=== PATIENT | male | born 1975 | race Caucasian/White ===

== ENCOUNTER 2023-06-27 17:37 | Emergency (ER) | payer OTHER, SELFPAY ==
[2023-06-27 18:18] VITALS: BP 144/93; PULSE 111; RESP 16; TEMP 37; O2SAT 95; BMI 28.4
--- NOTE | 2023-06-27 18:18 | ED_ITS ---
HPI - Extremity Injury (Upper) General Chief Complaint: Extremity Injury, Upper Stated Complaint: right shoulder and arm pain Time Seen by Provider: 06/27/23 19:40 Source: patient, RN notes reviewed and old records reviewed Mode of arrival: ambulatory History of Present Illness HPI narrative: 48-year-old male with a past medical history of diabetes presenting to the ED complaining of acute on chronic right shoulder pain x 3 months. 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 Denies direct injury/trauma or fall. was seen at [facility] ED on Wednesday, had multiple x-rays return unremarkable, discharge with ibuprofen without any relief. States he is here today for pain control. Denies CP/SOB, numbness, tingling, weakness MD complaint: injury to: shoulder Related Data Previous Rx's Medication Instructions Recorded acetaminophen 500 mg tablet 500 mg PO Q6H PRN fever or pain 06/27/23 (Tylenol Extra Strength) #14 tabs cyclobenzaprine 5 mg tablet 5 mg PO Q8H PRN pain (scale score 06/27/23 7-10) 5 days #14 tabs lidocaine 5 % topical patch 1 patch topical DAILY PRN pain #30 06/27/23 (Lidoderm) ea Allergies Allergy/AdvReac Type Severity Reaction Status Date / Time amoxicillin Allergy Unknown Verified 06/27/23 18:18 Penicillins Allergy Unknown Verified 06/27/23 18:18 Review of Systems Review of Systems: Constitutional: No Fever, No Chills ENT/Mouth: No Ear Pain, No Nasal Congestion, No sore throat, No Rhinorrhea, No Swallowing Difficulty Cardiovascular: No Chest Pain, No SOB Respiratory: No Cough Gastrointestinal: No Nausea, No Vomiting, No Abdominal pain Genitourinary: No Urinary Incontinence/retention Musculoskeletal: + joint pain, No Myalgias, No Joint Swelling Skin: No Skin Lesions, No rash Neuro: No Weakness, No Numbness, No Paresthesias Yes all other systems are reviewed and are negative Constitutional: Constitutional: Reports as per [facility] Past Medical History Attestation statement: The following information was validated with the patient. Source: old records reviewed Social History Smoked in Last 30 Days: No Use of substances other than those prescribed or required for medical reasons: No Advance Directives: No Advance Directives Information Provided: No Physical Exam Vital Signs: Vital Signs: Last Vital Signs Temp 98.6 F 06/27/23 18:18 Pulse 111 H 06/27/23 18:18 Resp 16 06/27/23 18:18 BP 144/93 H 06/27/23 18:18 Pulse Ox 95 06/27/23 18:18 O2 Del Method Room Air 06/27/23 18:18 BMI result Body Mass Index 28.4 Const: General: cooperative, healthy appearing and no acute distress Orientation/consciousness: patient oriented x3 Limitations: no limitations HEENT: Head: Yes normal to inspection and Yes atraumatic Ears: hearing grossly normal bilaterally General nose exam: Normal external nose present Face and sinus: Yes normal facial exam Eyes: General: appearance normal, both eyes and all related structures EOM: EOMs intact bilaterally Neck: Neck: Yes normal visual inspection and Yes no meningeal signs Resp: Effort & Inspection: normal respiratory effort and no respiratory distress Cardio: Rate: regular rate Peripheral pulses: Peripheral pulses 2+ throughout Back/Spine/Pelvis: Other: No midline cervical/thoracic/lumbar spinous tenderness/step-off or deformity. + right trapezius muscle tenderness to palpation Skin: Rashes: no rashes Wounds: no wounds Neuro: General: patient oriented x3, tone normal and no meningeal signs Cranial nerves: Yes CN's II-XII intact bilaterally Gait exam (Neuro): Normal gait present Extrem: Other: Right shoulder without noted deformity. Diffusely tender to palpation. Limited ROM secondary to pain. Neurovascularly intact distally. General: Yes normal to inspection Course Course Course Narrative: RME: 48yo M w/PMHx DM, c/o right shoulder pain x3 mos, intermittent. Went to [facility] Wednesday, had XRs and was sent home with Ibuprofen w/o relief. admits works in construction. EKG, IM Toradol, Flexeril ordered Full HPI, ROS and PE to be performed by primary ED provider. Medications Administered Discontinued Medications Generic Name Dose Route Start Last Admin Trade Name Freq PRN Reason Stop Dose Admin Cyclobenzaprine HCl 10 mg 06/27/23 18:21 06/27/23 19:09 Cyclobenzaprine Hcl 10 Mg Tablet PO 06/27/23 18:22 10 mg ONCE ONE Administration Ketorolac Tromethamine 30 mg 06/27/23 18:21 06/27/23 19:09 Ketorolac Tromethamine 30 Mg/Ml Vial IM 06/27/23 18:22 30 mg ONCE ONE Administration Medical Decision Making Medical Decision Making [facility] Narrative: 48-year-old male with a past medical history of diabetes presenting to the ED complaining of acute on chronic right shoulder pain x 3 months. On exam tachycardic likely from pain, NAD, nontoxic appearing, physical exam as above. concern for MSK pain/strain and muscle spasming vs rotator cuff injury. Low suspicion for ACS, fracture, septic joint/arthritis No need for repeat imaging at this time as patient had x-rays this week Plan: Pain control, work connection and orthopedic follow-up Please refer to course for remaining clinical decision making, interpretation of labs/imaging results, and discussions with consultants and/or family members. Results discussed with patient including worrisome signs and symptoms and strict return precautions, and when to return to the emergency department. They verbalized understanding and feel safe for discharge at this time. Differential Diagnosis Differential Diagnoses: The differential diagnosis associated with the presentation includes As above Lab Data [facility] Lab Attestation statement: I reviewed the patient's lab results. Radiology Impression Discussion of test interpretation with radiology: I have reviewed the radiologist's reading. External Record Review External record reviewed: Inpatient record, Office record, Outpatient record, Prior outpatient labs, Prior outpatient radiology, Primary care record and Outside ED record Tests considered The following testing was considered but not selected: As above Prescription Management I considered prescription management with: Pain Medication Discharge Plan Discharge Clinical Impression: Acute shoulder pain, Trapezius muscle spasm Patient Disposition: Home, Self-Care Instructions: Muscle Spasm (ED), Shoulder Pain (ED) Additional Instructions: Your pain is likely musculoskeletal Flexeril is a muscle relaxer, take at night as it makes you drowsy, do not drive, drink alcohol, or operate machinery while taking it Continue taking previously prescribed ibuprofen Lidoderm patches are numbing patches, apply to painful area In addition take Tylenol at home If symptoms persist or worsen, pain becomes unbearable, you developed urinary retention or incontinence, or weakness return to the ED Prescriptions: New acetaminophen [Tylenol Extra Strength] 500 mg tablet 500 mg PO Q6H PRN (Reason: fever or pain) Qty: 14 0RF lidocaine [Lidoderm] 5 % adhesive patch,medicated 1 patch topical DAILY MDD remove after 12 hours PRN (Reason: pain) Qty: 30 0RF Rx Instructions: leave on most painful area for up to 12 hrs cyclobenzaprine 5 mg tablet 5 mg PO Q8H PRN (Reason: pain (scale score 7-10)) 5 Days Qty: 14 0RF Referrals: [facility] [Provider Group] Work Connection [Outside] Stand Alone Forms: Work/School Release Interventions: ED Discharge Assessment Last Done: 06/27/23 20:13 Discharge Date/Time: 06/27/23 20:14
--- NOTE | 2023-06-27 18:21 | ECG_ITS ---
Test Reason : SHOULDER GUADALUPE Blood Pressure : / mmHG Vent. Rate : 096 BPM Atrial Rate : 096 BPM P-R Int : 138 ms QRS Dur : 088 ms QT Int : 348 ms P-R-T Axes : 053 -05 041 degrees QTc Int : 439 ms Poor data quality, interpretation may be adversely affected Normal sinus rhythm Normal ECG No previous ECGs available missing v2-3 Referred By: Sandi Weston Electronically Signed By:TIN BAUTISTA MD
[2023-06-27] MEDS: Ketorolac Tromethamine 30 MG/ML VIAL IM (19:09)
[2023-06-27] MEDS: Cyclobenzaprine HCl 10 MG TABLET PO (19:09)
--- OUTSIDE RECORDS SUMMARY | 2023-06-27 19:53 | XMS_ITS | Continuity of Care Document ---
Author Name Unknown Organization [facility] (Formerly [facility])[3] Adult Medicine Address [address] [place] [address]- Care Team Providers Care Hand Silvering Supervisor Name Role Phone Gabino Marie DOpiter Primary Care Physician Encounter [facility] Date(s): 07/23/21 - 08/22/21 [facility]3] Adult Medicine [address], [place] [address] Allergies, Adverse Reactions, Alerts Substance Reaction Severity Status amoxicillin Active penicillin Active Immunizations Given and Recorded Vaccine Date Status Refusal Reason SARS-CoV-2 (COVID-19) mRNA BNT-162b2 vac 05/23/21 Given SARS-CoV-2 (COVID-19) mRNA BNT-162b2 vac 03/06/21 Given pneumococcal 23-valent vaccine 12/29/18 Given influenza virus vaccine, inactivated 05/28/16 Give n tetanus/diphtheria/pertussis, acel(Tdap) 1 05/31/09 Given influenza virus vaccine, live 2 05/31/09 Given 1Admin Note: Sanofi-Pasteur pt VIS 06/19/2008 2Admin Note: VIS 12/2008 Medications Alcohol Pads See Instructions, # 1 pack/packet, Refills 11, Tot. Refills 11, Maintenance, use to check bs tid dxe11.9, 07/21/21 15:04:00 EST, Supply, 178, cm, 06/23/21 8:47:00 EST, Height Start Date: 07/21/21 Status: Ordered Diflucan 150 mg oral tablet 1 tablet = 150 mg, By Mouth, Once, # 1 tablet, 0 Refills, Soft Stop, 03/06/21 15:59:00 EDT, Tablet,[facility] #[id number], Partial fill upon patient request if the prescription is for a schedule II opioid drug., 178, cm, 03/06/21 10:19:00 EDT, H... Start Date: 03/06/21 Status: Ordered FreeStyle 2 Marva Sensors FreeStyle 2 Marva Sensors, See Instructions, # 2 each, Refills 5, Tot. Refills 5, Maintenance, Scanreader over sensor 5 times a day to check blood sugars E11.9, 04/22/21 10:30:00 EDT, Supply, 178, cm, 03/06/21 10:19:00 EDT, Height Start Date: 04/22/21 Status: Ordered FREESTYLE LITE BLOOD GLUCSTR 50S FREESTYLE LITE BLOOD GLUCSTR 50S, See Instructions, # 150 Unknown, 0 Refills, Maintenance, USE TO TEST BLOOD GLUCOSE FOUR TIMES DAILY, 178, cm, 03/06/21 10:19:00 EDT, Height Start Date: 03/12/21 Status: Ordered gabapentin 300 mg oral capsule 300 mg, 1, capsule, By Mouth, 3 times a day, Start with 1 capsule at night for 3 nights, then increase to 1 capsule 2 times a day for 5 days, increase to 1 capsule am and 2 at bedtime, # 90 capsule, Refills 3, Tot. Refills 3, Maintenance, 08/14/21 14:... Start Date: 08/14/21 Status: Ordered HumaLOG KwikPen 100 units/mL injectable solution See Instructions, INJECT UNDER THE SKIN THREE TIMES DAILY BEFORE MEALS PER SLIDING SCALE up to 20 units a meal, # 30 mL, 5 Refills, 04/06/21 19:53:00 EDT, [facility] #[id number], 178, cm, 03/06/21 10:19:00 EDT, Height Start Date: 04/06/21 Status: Ordered Lantus Solostar Pen 100 units/mL subcutaneous solution See Instructions, Take 40 units once daily. E10.65, # 30 mL, 5 Refills, 04/06/21 19:52:00 EDT, [facility] #[id number], 178, cm, 03/06/21 10:19:00 EDT, Height Start Date: 04/06/21 Status: Ordered lidocaine 5% topical film See Instructions, APPLY 1 PATCH EXTERNALLY TO THE SKIN DAILY, # 30 patch, 2 Refills, Soft Stop, 08/14/21 14:36:00 EST, [facility] #[id number], APPLY 1 PATCH EXTERNALLY TO THE SKIN DAILY, 178, cm, 08/14/21 13:48:00 EST, Height Start Date: 08/14/21 Status: Ordered lisinopril 2.5 mg oral tablet See Instructions, TAKE 1 TABLET BY MOUTH DAILY, # 30 tablet, Refills 3, Tot. Refills 3, Soft Stop, 03/06/21 12:10:00 EDT, Instructions Replace Required Details, Route to Pharmacy Electronically, [facility] #[id number], 178, cm, 03/06/21 10:19:00... Start Date: 03/06/21 Status: Ordered metFORMIN 500 mg oral tablet 1 tablet = 500 mg, By Mouth, 2 times a day, # 60 tablet, 3 Refills, Maintenance, 03/06/21 12:10:00 EDT, Tablet, [facility] #[id number], 178, cm, 03/06/21 10:19:00 EDT, Height Start Date: 03/06/21 Status: Ordered methyl salicylate topical - lotion 1 application, Topically, 3 times a day, PRN as needed for pain, # 120 Gm, 0 Refills, Maintenance, 12/29/18 15:32:43 EDT, Lotion, 1 application Topically 3 times a day,PRN:as needed for pain Start Date: 12/29/18 Status: Ordered omeprazole 20 mg oral enteric coated capsule 1 capsule = 20 mg, By Mouth, 2 times a day, # 30 capsule, 0 Refills, Maintenance, 06/11/21 9:13:00 EST, EC Capsule, [facility] #[id number], Partial fill upon patient request if the prescription is for a schedule II opioid drug., 178, cm, 06/10/21... Start Date: 06/11/21 Status: Ordered Pen [employer], 31 G x 8 mm BD Ultra Fine III See Instructions, # 120 each, Refills 11, Tot. Refills 11, Maintenance, use to inject insulin up tofour times daily. dx e11.9, 07/21/21 15:03:00 EST, Supply, 178, cm, 06/23/21 8:47:00 EST, Height Start Date: 07/21/21 Status: Ordered Tylenol 8 Hour 650 mg oral tablet, extended release 1 tablet = 650 mg, By Mouth, Every 8 hours, PRN as needed for pain, # 50 tablet, 1 Refills, Maintenance, 06/23/21 10:03:00 EST, ER Tablet, [facility] #[id number], Partial fill upon patient request if the prescription is for a schedule II opioid d... Start Date: 06/23/21 Status: Ordered Vitamin D3 1000 intl units oral tablet 1 tablet = 25 mcg, By Mouth, Daily, # 30 tablet, 2 Refills, Maintenance, 06/13/21 9:41:00 EST, Tablet, [facility] #[id number], Partial fill upon patient request if the prescription is for a schedule II opioid drug., 178, cm, 06/10/21 11:08:00 EST... Start Date: 06/13/21 Status: Ordered Problem List Condition Effective Dates Status Health Status Inform ant Balanitis(Confirmed) Active Chronic low back pain(Confirmed) Active Compression fracture of lumb ar vertebra(Confirmed) Active Thrombocytopenia(Confirmed) Active Vitamin D deficiency(Confirmed) Active Social History Social History Type Response Smoking Status Current every day margarito hoffman entered on: 07/29/17 Sex
--- OUTSIDE RECORDS SUMMARY | 2023-06-27 19:53 | XMS_ITS | Continuity of Care Document ---
Author Name Unknown Organization [facility] Address [address] [place] [address]- Care Team Providers Care Nurse Anesthetist Name Role Phone Sydney Zheng DO Primary Care Physici an Encounter [facility] Date(s): 12/05/19 - 01/04/20 [facility] [address] [place] [address] Attending Physician: Corinna Estrella Admitting Physician: Corinna Estrella Referring Physician: Corinna Estrella Referring Physician: Shoshana Nelson NP Allergies, Adverse Reactions, Alerts Substance Reaction Severity Status amoxicillin Active penicillin Active Immunizations Given and Recorded Vaccine Date Status Refusal Reason pneumococcal 23-valent vaccine 12/29/18 Given influenza virus vaccine, inactivated 05/28/16 Give n tetanus/diphtheria/pertussis, acel(Tdap) 1 05/31/09 Given influenza virus vaccine, live 2 05/31/09 Given 1Admin Note: Sanofi-Pasteur pt VIS 06/19/2008 2Admin Note: VIS 12/2008 Medications Admelog SoloStar 100 units/mL injectable solution See Instructions, Max daily dose 42 units. E10.65., # 30 mL, 5 Refills, Maintenance, 10/25/19 12:37:00 EDT, [facility] #[id number], 178, cm, 10/16/19 14:26:00 EDT, Height Start Date: 10/25/19 Status: Ordered Alcohol Wipes See Instructions, # 100 each, Refills 11, Tot. Refills 11, Maintenance, Check glucose three times aday, 08/30/19 9:12:00 EST, Compound, 178, cm, 08/14/19 14:54:00 EST, Height Start Date: 08/30/19 Status: Ordered Freestyle Marva 14-day [place] Freestyle Marva 14-day [place], See Instructions, # 1 each, Refills 0, Tot. Refills 0, Maintenance, Use to scan for blood sugar at least 4 times daily. E10.65, 08/14/19 15:18:00 EST, Compound, 178, cm, 08/14/19 14:54:00 EST, Height Start Date: 08/14/19 Status: Ordered Freestyle Marva 14-day Sensors Freestyle Marva 14-day Sensors, See Instructions, # 2 each, Refills 11, Tot. Refills 11, Maintenance, Use to scan for blood sugar at least 4 times daily. E10.65, 08/14/19 15:18:00 EST, Compound, 178,cm, 08/14/19 14:54:00 EST, Height Start Date: 08/14/19 Status: Ordered Freestyle Lite Lancets See Instructions, # 200 each, Refills 11, Tot. Refills 11, Maintenance, use as directed to check blood sugars four times a day for Type 2 Diabetes Mellitus E11.9, 08/04/18 18:20:35 EST, Compound Start Date: 08/04/18 Stop Date: 07/30/19 Status: Ordered Freestyle Lite Monitor See Instructions, # 1 each, Refills 5, Tot. Refills 5, Maintenance, use as directed for Type 1 Diabetes Mellitus, 02/15/18 13:43:56 EDT, Compound Start Date: 02/15/18 Stop Date: 08/14/18 Status: Ordered Freestyle Lite Test Strips See Instructions, # 40 each, Refills 11, Tot. Refills 11, Maintenance, test blood glucose daily fordx Diabetes E11.9, 08/18/19 11:44:00 EST, Compound, 178, cm, 08/14/19 14:54:00 EST, Height Start Date: 08/18/19 Status: Ordered gabapentin 600 mg oral tablet 1 tablet = 600 mg, By Mouth, Daily at bedtime, # 30 tablet, 5 Refills, Maintenance, 04/28/18 17:35:35 EDT Start Date: 04/28/18 Status: Ordered Glucagon Emergency Kit See Instructions, # 1 application, Maintenance, Use if patient is unconscious, 12/29/18 15:24:16 EDT, Compound Start Date: 12/29/18 Status: Ordered Lantus Solostar Pen 100 units/mL subcutaneous solution See Instructions, Take 30 units once daily. E10.65, # 30 mL, 5 Refills, 10/25/19 12:35:00 EDT, [facility] #[id number], 178, cm, 10/16/19 14:26:00 EDT, Height Start Date: 10/25/19 Status: Ordered lidocaine 5% topical film See Instructions, # 30 patch, Refills 2 Tot. Refills 2, APPLY 1 PATCH EXTERNALLY TO THE SKIN DAILY,[facility] #[id number] Start Date: 05/04/19 Status: Ordered lisinopril 2.5 mg oral tablet See Instructions, TAKE 1 TABLET BY MOUTH DAILY, # 30 tablet, Refills 3, Tot. Refills 3, Soft Stop, 09/05/19 17:10:00 EST, Instructions Replace Required Details, Route to Pharmacy Electronically, [facility] #[id number], 178, cm, 08/14/19 14:54:00... Start Date: 09/05/19 Status: Ordered metFORMIN 500 mg oral tablet 1 tablet = 500 mg, By Mouth, 2 times a day, # 60 tablet, 3 Refills, Maintenance, 09/05/19 17:10:00 EST, Tablet, [facility] #[id number], 178, cm, 08/14/19 14:54:00 EST, Height Start Date: 09/05/19 Status: Ordered methyl salicylate topical - lotion 1 application, Topically, 3 times a day, PRN as needed for pain, # 120 Gm, 0 Refills, Maintenance, 12/29/18 15:32:43 EDT, Lotion, 1 application Topically 3 times a day,PRN:as needed for pain Start Date: 12/29/18 Status: Ordered Pen [place], 31 G x 5 mm BD Ultra Fine III See Instructions, # 100 each, Refills 5, Tot. Refills 5, Maintenance, use to inject insulin up to four times daily dx e11.9, 09/05/19 17:09:00 EST, Compound, 178, cm, 08/14/19 14:54:00 EST, Height Start Date: 09/05/19 Stop Date: 03/03/20 Status: Ordered Vitamin D 66888 iu oral capsule 50,000 International_Units, 1, capsule, By Mouth, Every week, # 4 capsule, Refills 0, Tot. Refills 0, Maintenance, 10/20/18 15:52:35 EDT, Route to Pharmacy Electronically, [id number][id number] Start Date: 10/20/18 Status: Ordered Problem List Condition Effective Dates Status Health Status Inform ant Balanitis(Confirmed) Active Chronic low back pain(Confirmed) Active Compression fracture of lumb ar vertebra(Confirmed) Active Thrombocytopenia(Confirmed) Active Vitamin D deficiency(Confirmed) Active Social History Social History Type Response Smoking Status Current every day margarito hoffman entered on: 07/29/17 Sex
--- OUTSIDE RECORDS SUMMARY | 2023-06-27 19:53 | XMS_ITS | Continuity of Care Document ---
Author Name Unknown Organization [facility] Address [address] [place] [address]- Care Team Providers Care Director Of Institutional Research Name Role Phone Maurice MAST, Viktor Primary Care Physician [phone] [place] [facility] [place] 01/07/23 - 03/05/23 [facility] [address], [place] [address] Attending Physician: Not on Staff, Attending MD Allergies, Adverse Reactions, Alerts Substance Reaction Severity Status amoxicillin Active penicillin Active Duloxetine 1 Active 1dizzy and nauseous Immunizations Given and Recorded Vaccine Date Status [...] Maintenance, use to check bs tid dxe11.9, 08/20/22 17:30:00 EST, Supply, 179, cm, 12/27/21 10:24:00 EDT, Height, 79, kg, 12/27/21 10:24:00 EDT, Dry Weight Start Date: 08/20/22 Status: Ordered atorvastatin 40 mg oral tablet 1 tablet = 40 mg, By Mouth, Daily, # 30 tablet, 5 Refills, Maintenance, 01/07/23 17:16:00 EDT, Tablet, [facility] #[id number], Partial fill upon patient request if the prescription is for a schedule II opioid drug., 179, cm, 10/22/22 13:00:00 EDT... Start Date: 01/07/23 Status: Ordered BD Single Use Swab 70% topical pad See Instructions, USE PRIOR TO INJECTING INSULIN AND TESTING BLOOD GLUCOSE, # 200 Unknown, 3 Refills, [facility], 28, USE PRIOR TO INJECTING INSULIN AND TESTING BLOOD GLUCOSE, 179, cm, 12/27/21 10:24:00 EDT, Height, 79, kg, 12/27/21 10:24:00... Start Date: 02/17/22 Status: Ordered FREESTYLE NHI SENSOR 14d FREESTYLE NHI SENSOR 14d, See Instructions, # 2 each, Refills 11, Tot. Refills 11, Maintenance, USE TO CHECK BLOOD SUGAR 5X TIMES DAILY DIRECTED. CHANGE EVERY 14 DAYS, 12/21/22 12:06:00 EDT, Supply, 179, cm, 10/22/22 13:00:00 EDT, Height, 79, kg... Start Date: 12/21/22 Status: Ordered FREESTYLE LITE BLOOD GLUCSTR 50S FREESTYLE LITE BLOOD GLUCSTR 50S, See Instructions, # 150 Unknown, 0 Refills, Maintenance, USE TO TEST BLOOD GLUCOSE FOUR TIMES DAILY, 178, cm, 03/06/21 10:19:00 EDT, Height Start Date: 03/12/21 Status: Ordered gabapentin 800 mg oral tablet 1 tablet = 800 mg, By Mouth, 3 times a day, # 90 tablet, 1 Refills, Maintenance, 11/12/22 13:47:00 EDT, Tablet, [facility], Partial fill upon patient request if the prescription is for a schedule II opioid drug., 179, cm, 10/22/22 13:0... Start Date: 11/12/22 Status: Ordered Insulin Lispro KwikPen 100 units/mL injectable solution See Instructions, Inject sq 10-20 units subcutaneously 3x a day before meals per sliding scale . E10.9, # 30 mL, 2 Refills, Maintenance, 11/12/22 13:48:00 EDT, [facility], Partial fill upon patient request if the prescription is for a... Start Date: 11/12/22 Status: Ordered Lantus Solostar Pen 100 units/mL subcutaneous solution See Instructions, Take 40 units once daily. E10.65, # 30 mL, 5 Refills, 04/29/22 13:52:00 EDT, [facility]., 179, cm, 12/27/21 10:24:00 EDT, Height, 79, kg, 12/27/21 10:24:00 EDT, Dry Weight Start Date: 04/29/22 Status: Ordered lidocaine 5% topical film 1 patch, Topically, Daily, # 30 patch, 11 Refills, Soft Stop, 09/17/21 13:44:00 EST, [facility] #[id number], 1 patch Topically Daily,x30 days, 178, cm, 09/17/21 13:34:00 EST, Height Start Date: 09/17/21 Stop Date: 09/12/22 Status: Ordered metFORMIN 500 mg oral tablet, extended release 1 tablet = 500 mg, By Mouth, Daily, # 30 tablet, 0 Refills, Maintenance, 11/12/22 13:48:00 EDT, ER Tablet, [facility], Partial fill upon patient request if the prescription is for a schedule II opioid drug., 179, cm, 10/22/22 13:00:00... Start Date: 11/12/22 Status: Ordered Pen [place], 31 G x 8 mm BD Ultra Fine III See Instructions, # 120 each, Refills 11, Tot. Refills 11, Maintenance, use to inject insulin up tofour times daily. dx e11.9, 08/20/22 17:30:00 EST, Supply, 179, cm, 12/27/21 10:24:00 EDT, Height, 79, kg, 12/27/21 10:24:00 EDT, Dry Weight Start Date: 08/20/22 Status: Ordered Problem List Condition Confirmation Course Effective Dates Status H ealth Status Informant Balanitis Confirmed Active Chronic low back pain Confirmed Active Compression fracture of lumbar vertebra Confirmed Active Thrombocytopenia Confirmed Active Vitamin D deficiency Confirmed Active Social History Social History Type Response Smoking Status Current every day margarito hoffman entered on: 07/29/17 Sex Patient Care team information Care Team Personnel Name: Mauriec MAST, Viktor Position: [facility] Resident Member Role: PCP Address: Address: [address] [place] [id number]- Care Team Related Persons Name: CLARITA BRAND Address: [address] [place] [address] Name: LISSY OG Address: [address] [place] [address]
--- OUTSIDE RECORDS SUMMARY | 2023-06-27 19:53 | XMS_ITS | Continuity of Care Document ---
Author Name Unknown Organization [facility] Address [address] [place] [address]- Care Team Providers Care Coiler Name Role Phone Cl Marie DO Primary Care Physician [phone] Encounter [facility] [place] Date(s): 12/18/21 - 01/17/22 [facility] [address] [place] [id number] Attending Physician: AdmCorinna restrepo Admitting Physician: Admtr, Corinna Referring Physician: Admtr, Ar8 Allergies, Adverse Reactions, Alerts Substance Reaction Severity [...] EST, Height Start Date: 07/21/21 Status: Ordered duloxetine 30 mg oral enteric coated capsule 1 capsule = 30 mg, By Mouth, Daily, do not crush or chew, # 90 capsule, 11 Refills, Maintenance, 09/17/21 13:48:00 EST, CR Capsule, [facility] #[id number], Partial fill upon patient request if the prescription is for a schedule II opioid drug., 1... Start Date: 09/17/21 Stop Date: 09/01/24 Status: Ordered FreeStyle 2 Marva Sensors FreeStyle 2 Marva Sensors, See Instructions, # 1 each, Refills 11, Tot. Refills 11, Maintenance, Scan reader over sensor 5 times a day to check blood sugars E11.9, 12/18/21 16:18:00 EDT, Supply, 178,cm, 12/18/21 15:18:00 EDT, Height Start Date: 12/18/21 Status: Ordered FREESTYLE LITE BLOOD GLUCSTR 50S FREESTYLE LITE BLOOD GLUCSTR 50S, See Instructions, # 150 Unknown, 0 Refills, Maintenance, USE TO TEST BLOOD GLUCOSE FOUR TIMES DAILY, 178, cm, 03/06/21 10:19:00 EDT, Height Start Date: 03/12/21 Status: Ordered Freestyle Lite Lancets See Instructions, # 200 each, Refills 5, Tot. Refills 5, Maintenance, use as directed for Type 2 Diabetes Mellitus, 10/14/21 15:04:00 EDT, Supply, 178, cm, 09/17/21 13:34:00 EST, Height Start Date: 10/14/21 Stop Date: 04/12/22 Status: Ordered Freestyle Lite Test Strips See Instructions, # 200 each, Tot. Refills 5, Maintenance, use as directed for Type 2 Diabetes Mellitus, 10/14/21 15:03:00 EDT, Supply, 178, cm, 09/17/21 13:34:00 EST, Height Start Date: 10/14/21 Stop Date: 11/13/21 Status: Ordered gabapentin 300 mg oral capsule 300 mg, 1, capsule, By Mouth, 3 times a day, # 270 capsule, Refills 11, Tot. Refills 11, Maintenance, 09/17/21 13:40:00 EST, Route to Pharmacy Electronically, [facility] #[id number], Partial fill upon patient request if the prescription is for a... Start Date: 09/17/21 Stop Date: 09/01/24 Status: Ordered gabapentin 400 mg oral capsule 400 mg, 1, capsule, By Mouth, 4 times a day, # 360 capsule, Refills 3, Tot. Refills 3, Maintenance,12/18/21 16:21:00 EDT, Route to Pharmacy Electronically, [facility], Partial fill upon patient request if the prescription is for a kasandra... Start Date: 12/18/21 Status: Ordered Insulin Lispro KwikPen 100 units/mL injectable solution See Instructions, Inject sq 10-20 units subcutaneously 3x a day before meals per sliding scale . E10.9, # 30 mL, 11 Refills, Maintenance, 10/16/21 13:21:00 EDT, [facility], Partial fill upon patient request if the prescription is for a... Start Date: 10/16/21 Status: Ordered Lantus Solostar Pen 100 units/mL subcutaneous solution See Instructions, Take 40 units once daily. E10.65, # 30 mL, 5 Refills, 04/06/21 19:52:00 EDT, [facility] #[id number], 178, cm, 03/06/21 10:19:00 EDT, Height Start Date: 04/06/21 Status: Ordered lidocaine 5% topical film 1 patch, Topically, Daily, # 30 patch, 11 Refills, Soft Stop, 09/17/21 13:44:00 EST, [facility] #[id number], 1 patch Topically Daily,x30 days, 178, cm, 09/17/21 13:34:00 EST, Height Start Date: 09/17/21 Stop Date: 09/12/22 Status: Ordered Pen [place], 31 G x 8 mm BD Ultra Fine III See Instructions, # 120 each, Refills 11, Tot. Refills 11, Maintenance, use to inject insulin up tofour times daily. dx e11.9, 07/21/21 15:03:00 EST, Supply, 178, cm, 06/23/21 8:47:00 EST, Height Start Date: 07/21/21 Status: Ordered Problem List Condition Effective Dates Status Health Status Inform ant Balanitis(Confirmed) Active Chronic low back pain(Confirmed) Active Compression fracture of lumb ar vertebra(Confirmed) Active Thrombocytopenia(Confirmed) Active Vitamin D deficiency(Confirmed) Active Social History Social History Type Response Smoking Status Current every day margarito hoffman entered on: 07/29/17 Sex
--- OUTSIDE RECORDS SUMMARY | 2023-06-27 19:53 | XMS_ITS | Continuity of Care Document ---
Author Name Unknown Organization [facility] Address [address] [place] [address]- Care Team Providers Care Senior Portfolio Manager Name Role Phone Cl Marie DO Primary Care Physician [place] [facility] [place]/[address] [address] Attending Physician: Bassam Flaherty MD Admitting Physician: Bassam Flaherty MD Referring Physician: Cl Marie DO Allergies, Adverse Reactions, Alerts Substance Reaction Severity [...] VIS 06/19/2008 2Admin Note: VIS 12/2008 Medications Diflucan 150 mg oral tablet 1 tablet = 150 mg, By Mouth, Once, # 1 tablet, 0 Refills, Soft Stop, 03/06/21 15:59:00 EDT, Tablet,[facility] #[id number], Partial fill upon patient request if the [...] EDT, Height Start Date: 03/12/21 Status: Ordered HumaLOG KwikPen 100 units/mL injectable solution See Instructions, INJECT UNDER THE SKIN THREE TIMES DAILY BEFORE MEALS PER SLIDING SCALE up to 20 units a meal, # 30 mL, 5 Refills, 04/06/21 19:53:00 EDT, [facility] #[id number], 178, cm, 03/06/21 10:19:00 EDT, Height Start Date: 04/06/21 Status: Ordered Lantus Solostar Pen 100 units/mL subcutaneous solution See Instructions, Take 40 units once daily. E10.65, # 30 mL, 5 Refills, 04/06/21 19:52:00 EDT, [facility] #[id number], 178, cm, 03/06/21 10:19:00 EDT, Height Start Date: 04/06/21 Status: Ordered lidocaine 5% topical film See Instructions, # 30 patch, Refills 2 Tot. Refills 2, APPLY 1 PATCH EXTERNALLY TO THE SKIN DAILY,[facility] #[id number] Start Date: 05/04/19 Status: Ordered lisinopril 2.5 mg oral tablet See Instructions, TAKE 1 TABLET BY MOUTH DAILY, # 30 tablet, Refills 3, Tot. Refills 3, Soft Stop, 03/06/21 12:10:00 EDT, Instructions Replace Required Details, Route to Pharmacy Electronically, [facility] #[id number], 178, cm, 03/06/21 10:19:00... Start Date: 03/06/21 Status: Ordered metFORMIN 500 mg oral tablet 1 tablet = 500 mg, By Mouth, 2 times a day, # 60 tablet, 3 Refills, Maintenance, 03/06/21 12:10:00 EDT, Tablet, [facility] #[id number], 178, cm, 03/06/21 10:19:00 EDT, Height Start [...] Refills, Maintenance, 06/11/21 9:13:00 EST, EC Capsule, [facility] #[id number], Partial fill upon patient request if the prescription is for a schedule II opioid drug., 178, cm, 06/10/21... Start Date: 06/11/21 Status: Ordered Tylenol 8 Hour 650 mg oral tablet, extended release 1 tablet = 650 mg, By Mouth, Every 8 hours, PRN as needed for pain, # 50 tablet, 1 Refills, Maintenance, 06/23/21 10:03:00 EST, ER Tablet, [facility] #[id number], Partial fill upon patient request if the prescription is for a schedule II opioid d... Start Date: 06/23/21 Status: Ordered Vitamin D3 1000 intl units oral tablet 1 tablet = 25 mcg, By Mouth, Daily, # 30 tablet, 2 Refills, Maintenance, 06/13/21 9:41:00 EST, Tablet, [facility] #[id number], Partial fill upon patient request if the [...] Type Response Smoking Status Current every day sm oker entered on: 07/29/17 Sex
--- OUTSIDE RECORDS SUMMARY | 2023-06-27 19:53 | XMS_ITS | Continuity of Care Document ---
Author Name Unknown Organization [facility] Address [address] [place] [address]- Care Team Providers Care Processing Inspector Name Role Phone TyAmandoSydney medina DO Jeffrey Primary Care Physici an Encounter [facility] Date(s): 08/09/19 - 08/19/19 [facility] [address] [place] [address]- [facility] Attending Physician: Admlauro, Corinna Admitting Physician: Admtr, Corinna Referring Physician: Admtr, [...] SoloStar 100 units/mL injectable solution See Instructions, Sliding scale, with meals 100-150 - 2U 151-200 - 4U 201-250 - 6U 251-300 - 8U 301-350 - 10U 351-400 - 12 U 400+ - call doctor, # 10 mL, 3 Refills, Maintenance, 12/29/18 15:31:17 EDT Start Date: 12/29/18 Status: Ordered Alcohol Wipes See Instructions, # 100 each, Refills 11, Tot. Refills 11, Maintenance, Check glucose three times aday, 08/04/18 18:20:34 EST, Compound Start Date: 08/04/18 Status: Ordered Freestyle Marva 14-day [place] Freestyle Marva 14-day [place], See Instructions, # 1 each, Refills 0, [...] Pen 100 units/mL subcutaneous solution See Instructions, INJECT 30 UNITS UNDER THE SKIN EVERY NIGHT AT BEDTIME, # 9 mL, 0 Refills, Maintenance, 178, cm, 04/27/19 11:01:00 EDT, Height Start Date: 07/07/19 Status: Ordered lidocaine 5% topical film See Instructions, # 30 patch, Refills 2 Tot. Refills 2, APPLY 1 PATCH EXTERNALLY TO THE SKIN DAILY,[facility] #[id number] Start Date: 05/04/19 Status: Ordered lisinopril 2.5 mg oral tablet See Instructions, # 30 tablet, Refills 3 Tot. Refills 3, TAKE 1 TABLET BY MOUTH DAILY, [facility] #[id number] Start Date: 05/04/19 Status: Ordered metFORMIN 500 mg oral tablet 1 tablet = 500 mg, By Mouth, 2 times a day, # 60 tablet, 3 Refills, Maintenance, 12/29/18 15:33:14 EDT, Tablet Start Date: 12/29/18 Status: Ordered methyl salicylate topical - lotion 1 application, Topically, 3 times a day, PRN as needed for pain, # 120 Gm, 0 Refills, Maintenance, 12/29/18 15:32:43 EDT, Lotion, 1 application Topically 3 times a day,PRN:as needed for pain Start Date: 12/29/18 Status: Ordered Pen [place], 31 G x 5 mm BD Ultra Fine III See Instructions, # 100 each, Refills 5, Tot. Refills 5, Maintenance, use as directed for Type 1 Diabetes Mellitus, 12/29/18 17:06:55 EDT, Compound Start Date: 12/29/18 Stop Date: 06/27/19 Status: Ordered Vitamin D 37761 iu oral capsule 50,000 International_Units, 1, capsule, By Mouth, Every week, # 4 capsule, Refills 0, Tot. Refills 0, Maintenance, 10/20/18 15:52:35 EDT, Route to Pharmacy Electronically, [id number], [id number] Start Date: 10/20/18 Status: Ordered Problem List Condition Effective Dates Status Health Status Inform ant Balanitis(Confirmed) Active Chronic low back pain(Confirmed) Active Compression fracture of lumb ar vertebra(Confirmed) Active Thrombocytopenia(Confirmed) Active Vitamin D deficiency(Confirmed) Active Social History Social History Type Response Smoking Status Current every day margarito hoffman entered on: 07/29/17 Sex
--- OUTSIDE RECORDS SUMMARY | 2023-06-27 19:53 | XMS_ITS | Continuity of Care Document ---
Author Name Unknown Organization [facility] Address [address] [place] [address]- Care Team Providers Care Show Card Writer Name Role Phone Keaganbryan Cl TOLEDO Primary Care Physician [place] [facility] [place]06[place] - 02/05/22 [facility] [address] [place], [place] [address] Allergies, Adverse Reactions, Alerts Substance Reaction Severity [...] Refills, Maintenance, 09/17/21 13:48:00 EST, CR Capsule, [facility] #[id number], Partial fill upon patient request if the [...] 09/17/21 13:40:00 EST, Route to Pharmacy Electronically, [facility] #[id number], Partial fill upon patient request if the prescription is for a... Start Date: 09/17/21 Stop Date: 09/01/24 Status: Ordered gabapentin 400 mg oral capsule 400 mg, 1, capsule, By Mouth, 4 times a day, # 360 capsule, Refills 3, Tot. Refills 3, Maintenance,12/18/21 16:21:00 EDT, Route to Pharmacy Electronically, [facility], Partial fill upon patient request if the prescription is for a kasandra... Start Date: 12/18/21 Status: Ordered Insulin Lispro KwikPen 100 units/mL injectable solution See Instructions, Inject sq 10-20 units subcutaneously 3x a day before meals per sliding scale . E10.9, # 30 mL, 11 Refills, Maintenance, 10/16/21 13:21:00 EDT, [facility], Partial fill upon patient request if the prescription is for a... Start Date: 10/16/21 Status: Ordered Lantus Solostar Pen 100 units/mL subcutaneous solution See Instructions, Take 40 units once daily. E10.65, # 30 mL, 5 Refills, 04/06/21 19:52:00 EDT, [facility] #[id number], 178, cm, 03/06/21 10:19:00 EDT, Height Start Date: 04/06/21 Status: Ordered lidocaine 5% topical film 1 patch, Topically, Daily, # 30 patch, 11 Refills, Soft Stop, 09/17/21 13:44:00 EST, [facility] #[id number], 1 patch Topically Daily,x30 days, 178, cm, 09/17/21 13:34:00 EST, Height Start Date: 09/17/21 Stop Date: 09/12/22 Status: Ordered Pen [place], 31 G x 8 mm BD Ultra [...]
--- OUTSIDE RECORDS SUMMARY | 2023-06-27 19:53 | XMS_ITS | Continuity of Care Document ---
Author Name Unknown Organization [facility] Address [address] [place] [address]- Care Team Providers Care Psychiatric Assistant Name Role Phone Cl Marie DO Primary Care Physician Encounter [facility] Date(s): 09/09/20 - 10/09/20 [facility] [address] [place], [place] [address] Attending Physician: Croinna Estrella Admitting Physician: AdmCorinna restrepo Referring Physician: Admtr, Ar8 Allergies, Adverse Reactions, [...] mL, 5 Refills, Maintenance, 10/25/19 12:37:00 EDT, [facility] #[id number], 178, cm, 10/16/19 14:26:00 EDT, Height Start Date: 10/25/19 Status: Ordered Alcohol Wipes See Instructions, # 100 each, Refills 11, Tot. Refills 11, Maintenance, Check glucose three times aday, 08/30/19 9:12:00 EST, Compound, 178, cm, 08/14/19 14:54:00 EST, Height Start Date: 08/30/19 Status: Ordered Freestyle Marva 14-day [place] Freestyle Marva 14-day [place], See Instructions, # 1 each, Refills 0, Tot. Refills 0, Maintenance, Use to scan for blood sugar at least 4 times daily. E10.65, 08/17/20 14:54:00 EST, Compound, 178, cm, 10/16/19 14:26:00 EDT, Height Start Date: 08/17/20 Status: Ordered Freestyle Marva 14-day Sensors Freestyle Marva 14-day Sensors, See Instructions, # 2 each, Refills 11, Tot. Refills 11, Maintenance, Use to scan for blood sugar at least 4 times daily. E10.65, 08/17/20 14:54:00 EST, Compound, 178,cm, 10/16/19 14:26:00 EDT, Height Start Date: 08/17/20 Status: Ordered Freestyle Lite Lancets See Instructions, [...] Strips See Instructions, # 40 each, Refills 5, Tot. Refills 5, Maintenance, test blood glucose daily for dx Diabetes E11.9, 02/28/20 20:33:00 EDT, Compound, 178, cm, 10/16/19 14:26:00 EDT, Height Start Date: 02/28/20 Status: Ordered gabapentin 600 mg oral tablet [...] 30 mL, 5 Refills, 10/25/19 12:35:00 EDT, [email or web address] #[id number], 178, cm, 10/16/19 14:26:00 EDT, Height Start Date: 10/25/19 Status: Ordered lidocaine 5% topical film See Instructions, # 30 patch, Refills 2 Tot. Refills 2, APPLY 1 PATCH EXTERNALLY TO THE SKIN DAILY,[facility] #[id number] Start Date: 05/04/19 Status: Ordered lisinopril 2.5 mg oral tablet See Instructions, TAKE 1 TABLET BY MOUTH DAILY, # 30 tablet, Refills 3, Tot. Refills 3, Soft Stop, 09/05/19 17:10:00 EST, Instructions Replace Required Details, Route to Pharmacy Electronically, [facility] #[id number], 178, cm, 08/14/19 14:54:00... Start Date: 09/05/19 Status: Ordered metFORMIN 500 mg oral tablet 1 tablet = 500 mg, By Mouth, 2 times a day, # 60 tablet, 3 Refills, Maintenance, 09/05/19 17:10:00 EST, Tablet, [email or web address] #[id number], 178, cm, 08/14/19 14:54:00 EST, Height Start Date: 09/05/19 Status: Ordered methyl salicylate topical - lotion 1 application, Topically, 3 times a day, PRN as needed for pain, # 120 Gm, 0 Refills, Maintenance, 12/29/18 15:32:43 EDT, Lotion, 1 application Topically 3 times a day,PRN:as needed for pain Start Date: 12/29/18 Status: Ordered Pen [place], 31 G x 5 mm BD Ultra Fine III See Instructions, # 100 each, Refills 5, Tot. Refills 5, Maintenance, use to inject insulin up to four times daily dx e11.9, 09/05/19 17:09:00 EST, Compound, 178, cm, 08/14/19 14:54:00 EST, Height Start Date: 09/05/19 Stop Date: 03/03/20 Status: Ordered Vitamin D 42634 iu oral capsule 50,000 International_Units, 1, capsule, By Mouth, Every week, # 4 capsule, Refills 2, Tot. Refills 2, Maintenance, 03/01/20 14:21:00 EDT, Route to Pharm[facility] Electronically, [id number], 178, cm, 10/16/19 14:26:00 EDT, Height Start Date: 03/01/20 Status: Ordered Problem List Condition Effective Dates Status Health Status Inform ant Balanitis(Confirmed) Active Chronic low back pain(Confirmed) Active Compression fracture of lumb ar vertebra(Confirmed) Active Thrombocytopenia(Confirmed) Active Vitamin D deficiency(Confirmed) Active Social History Social History Type Response Smoking Status Current every day margarito hoffman entered on: 07/29/17 Sex
--- OUTSIDE RECORDS SUMMARY | 2023-06-27 19:53 | XMS_ITS | Continuity of Care Document ---
Author Name Unknown Organization [facility] Address [address] [place] [address] [address], [address] [place] [address]- Care Team Providers Care Director Of Recreation Therapy Name Role Phone Maurice MAST, Viktor Primary Care Physician Encounter [facility] [place] Date(s): 02/11/23 - 02/18/23 [facility] [address] [place] [address] Drive, [address] [place], [place] [address] Attending Physician: Carmen Baptiste MD Allergies, Adverse Reactions, Alerts Substance Reaction [...] 5 Refills, Maintenance, 01/07/23 17:16:00 EDT, Tablet, [id number], Partial fill upon patient request if the prescription is for a schedule II opioid drug., 179, cm, 10/22/22 13:00:00 EDT... Start Date: 01/07/23 Status: Ordered BD Single Use Swab 70% topical pad See Instructions, USE PRIOR TO INJECTING INSULIN AND TESTING BLOOD GLUCOSE, # 200 Unknown, 3 Refills, [facility], 28, USE PRIOR TO INJECTING INSULIN AND [...] 1 Refills, Maintenance, 11/12/22 13:47:00 EDT, Tablet, [facility], Partial fill upon patient request if the prescription is for a schedule II opioid drug., 179, cm, 10/22/22 13:0... Start Date: 11/12/22 Status: Ordered Insulin Lispro KwikPen 100 units/mL injectable solution See Instructions, Inject sq 10-20 units subcutaneously 3x a day before meals per sliding scale . E10.9, # 30 mL, 2 Refills, Maintenance, 11/12/22 13:48:00 EDT, [facility] Partial fill upon patient request if the prescription is for a... Start Date: 11/12/22 Status: Ordered Lantus Solostar Pen 100 units/mL subcutaneous solution See Instructions, Take 40 units once daily. E10.65, # 30 mL, 5 Refills, 04/29/22 13:52:00 EDT, [facility]., 179, cm, 12/27/21 10:24:00 EDT, Height, 79, kg, 12/27/21 10:24:00 EDT, Dry Weight Start Date: 04/29/22 Status: Ordered lidocaine 5% topical film 1 patch, Topically, Daily, # 30 patch, 11 Refills, Soft Stop, 09/17/21 13:44:00 EST, [id number], 1 patch Topically Daily,x30 days, 178, cm, 09/17/21 13:34:00 EST, Height Start Date: 09/17/21 Stop Date: 09/12/22 Status: Ordered metFORMIN 500 mg oral tablet, extended release 1 tablet = 500 mg, By Mouth, Daily, # 30 tablet, 0 Refills, Maintenance, 11/12/22 13:48:00 EDT, ER Tablet, [facility]., Partial fill upon patient request if the prescription is for a schedule II opioid drug., 179, cm, 10/22/22 13:00:00... Start Date: 11/12/22 Status: Ordered Pen [place], 31 G x 8 mm BD Ultra [...] Care team information Care Team Personnel Name: Viktor Richards MD Position: S Resident Member Role: PCP Address: Address: [address] [place] [address]- Care Team Related Persons Name: CLARITA BRAND Address: home [address] [place] [address] Name: LISSY OG Address: home [address] [place] [address]
--- OUTSIDE RECORDS SUMMARY | 2023-06-27 19:53 | XMS_ITS | Continuity of Care Document ---
Author Name Unknown Organization [facility] Address [address] [place] [address]- Care Team Providers Care Packager And Strapper Name Role Phone Maurice MAST, Viktor Primary Care Physician [place] [facility] [place] - 05/28/23 [facility] [address] [place], [place] [address] Attending Physician: Corinna Estrella Admitting Physician: Corinna Estrella Referring Physician: Corinna Estrella Referring Physician: Leslie KAYE, Shoshana Wolfe Allergies, Adverse Reactions, Alerts Substance Reaction Severity [...] Daily, # 30 tablet, 5 Refills, Maintenance, 04/16/23 13:51:00 EDT, Tablet, [facility] fill upon patient request if the prescription is for a schedule II opioid drug., 179, cm, 10/22/22 13:00:00 EDT,... Start Date: 04/16/23 Status: Ordered BD Single Use Swab 70% topical pad See Instructions, USE PRIOR TO INJECTING INSULIN AND TESTING BLOOD GLUCOSE, # 200 Unknown, 3 [facility]ills, [facility], 28, USE PRIOR TO INJECTING INSULIN AND TESTING BLOOD GLUCOSE, 179, cm, 12/27/21 10:24:00 EDT, Height, 79, kg, 12/27/21 10:24:00... Start Date: 02/17/22 Status: Ordered duloxetine 30 mg oral enteric coated capsule 1 capsule, By Mouth, Daily, DO NOT CHEW OR CRUSH., # 90 capsule, 0 Refills, Maintenance, 03/24/23 15:47:00 EDT, [facility], 179, cm, 10/22/22 13:00:00 EDT, Height, 79, kg, 12/27/21 10:24:00EDT, Dry Weight Start Date: 03/24/23 Status: Ordered FREESTYLE NHI SENSOR 14d FREESTYLE [...] Ordered Freestyle Lite Lancets See Instructions, # 100 each, Refills 11, Tot. Refills 11, Maintenance, use to check bs tid dx e11.9, 03/16/23 9:58:00 EDT, Supply, 179, cm, 10/22/22 13:00:00 EDT, Height, 79, kg, 12/27/21 10:24:00 EDT, Dry Weight Start Date: 03/16/23 Status: Ordered Freestyle Lite Monitor See Instructions, # 1 each, Maintenance, use to check bs tid dx e11.9, 03/16/23 9:58:00 EDT, Supply, 179, cm, 10/22/22 13:00:00 EDT, Height, 79, kg, 12/27/21 10:24:00 EDT, Dry Weight Start Date: 03/16/23 Status: Ordered Freestyle Lite Test Strips See Instructions, # 100 each, Refills 11, Tot. Refills 11, Maintenance, use to check bs tid dx e11.9, 03/16/23 9:58:00 EDT, Supply, 179, cm, 10/22/22 13:00:00 EDT, Height, 79, kg, 12/27/21 10:24:00 EDT, Dry Weight Start Date: 03/16/23 Status: Ordered gabapentin 800 mg oral tablet 1 tablet = 800 mg, By Mouth, 3 times a day, # 90 tablet, 1 Refills, Maintenance, 11/12/22 13:47:00 EDT, Tablet, [facility] Partial fill upon patient request if the prescription is for a schedule II opioid drug., 179, cm, 10/22/22 13:0... Start Date: 11/12/22 Status: Ordered Insulin Lispro KwikPen 100 units/mL injectable solution See Instructions, INJECT SUBCUTANEOUSLY 10-20 UNITS SUBCUTANEOUSLY 3 TIMES A DAY BEFORE MEALS PER SLIDING SCALE, # 15 mL, 4 Refills, Maintenance, 03/24/23 15:47:00 EDT, [facility], 179, cm,10/22/22 13:00:00 EDT, Height, 79, kg, 12/27/21 10:... Start Date: 03/24/23 Status: Ordered Lantus Solostar Pen 100 units/mL subcutaneous solution See Instructions, Take 40 units once daily. E10.65, # 30 mL, 5 Refills, 04/29/22 13:52:00 EDT, [facility], 179, cm, 12/27/21 10:24:00 EDT, Height, 79, kg, 12/27/21 10:24:00 EDT, Dry Weight Start Date: 04/29/22 Status: Ordered lidocaine 5% topical film 1 patch, Topically, Daily, # 30 patch, 11 Refills, Soft Stop, 09/17/21 13:44:00 EST, [facility][id number], 1 patch Topically Daily,x30 days, 178, cm, 09/17/21 13:34:00 EST, Height Start Date: 09/17/21 Stop Date: 09/12/22 Status: Ordered MetFORMIN (Eqv-Glucophage XR) 500 mg oral tablet, extended release 1 tablet, By Mouth, Daily, # 90 tablet, 0 Refills, Maintenance, 03/24/23 15:47:00 EDT, [facility], 179, cm, 10/22/22 13:00:00 EDT, Height, 79, kg, 12/27/21 10:24:00 EDT, Dry Weight Start Date: 03/24/23 Status: Ordered Pen [place], 31 G x 8 mm BD Ultra Fine III See Instructions, # 120 each, Refills 11, Tot. Refills 11, Maintenance, use to inject insulin up tofour times daily. dx e11.9, 08/20/22 17:30:00 EST, Supply, 179, cm, 12/27/21 10:24:00 EDT, Height, 79, kg, 12/27/21 10:24:00 EDT, Dry Weight Start Date: 08/20/22 Status: Ordered Viagra 100 mg oral tablet 1 tablet = 100 mg, By Mouth, Daily, 1 hour before sexual activity. Split the tab in half and take one half only, # 10 tablet, 0 Refills, Maintenance, 04/29/23 9:29:00 EDT, Tablet, [facility][id number], Partial fill upon patient request if th... Start Date: 04/29/23 Status: Ordered Problem List Condition Confirmation Course Effective Dates Status H ealth Status Informant Balanitis Confirmed Active Chronic low back pain Confirmed Active Compression fracture of lumbar vertebra Confirmed Active Thrombocytopenia Confirmed Active Vitamin D deficiency Confirmed Active Social History Social History Type Response Smoking Status Current every day margarito dalton entered on: 07/29/17 Sex Patient Care team information Care Team Personnel Name: Viktor Richards MD Position: S Resident Member Role: PCP Address: Address: [address] [place] [address]- Care Team Related Persons Name: CLARITA BRAND Address: home [address] [place] [address] Name: LISSY OG Address: home [address] [place] [address]
--- OUTSIDE RECORDS SUMMARY | 2023-06-27 19:53 | XMS_ITS | Continuity of Care Document ---
Author Name Unknown Organization [facility] ter Address [address] [place] [address]- Care Team Providers Care Clinical Dietician Name Role Phone Cl Marie DO Primary Care Physician Encounter [facility] [place] [place] Date(s): 09/25/21 - 09/25/[address] [address] Discharge Disposition: A-D/C Home Attending Physician: Leonard To MD Admitting Physician: Leonard To MD Referring Physician: Leonard To MD Allergies, Adverse Reactions, Alerts Substance Reaction [...] Refills, Maintenance, 09/17/21 13:48:00 EST, CR Capsule, [facility] #[id number], Partial fill upon patient request if the [...] 09/17/21 13:40:00 EST, Route to Pharmacy Electronically, [facility] #[id number], Partial fill upon patient request if the prescription is for a... Start Date: 09/17/21 Stop Date: 09/01/24 Status: Ordered Insulin Lispro KwikPen 100 units/mL injectable solution See Instructions, Inject insulin subcutaneously 3x a day via ISS BG 100-150mg/dl take 4u, increase by 2u for every 50mg/dl. E10.9, # 30 mL, 6 Refills, Maintenance, 09/13/21 8:30:00 EST, [facility] #[id number], Partial fill upon patient request if... Start Date: 09/13/21 Status: Ordered Lantus Solostar Pen 100 units/mL subcutaneous solution See Instructions, Take 40 units once daily. E10.65, # 30 mL, 5 Refills, 04/06/21 19:52:00 EDT, [facility] #[id number], 178, cm, 03/06/21 10:19:00 EDT, Height Start Date: 04/06/21 Status: Ordered lidocaine 5% topical film 1 patch, Topically, Daily, # 30 patch, 11 Refills, Soft Stop, 09/17/21 13:44:00 EST, [facility] #[id number], 1 patch Topically Daily,x30 days, 178, cm, 09/17/21 13:34:00 EST, Height Start Date: 09/17/21 Stop Date: 09/12/22 Status: Ordered Pen [place], 31 G x 8 mm BD Ultra Fine III See Instructions, # 120 each, Refills 11, Tot. Refills 11, Maintenance, use to inject insulin up tofour times daily. dx e11.9, 07/21/21 15:03:00 EST, Supply, 178, cm, 06/23/21 8:47:00 EST, Height Start Date: 07/21/21 Status: Ordered Percocet-5 Tablet 2 tablet, Tablet, By Mouth, Every 4 hours, in PACU ONLY, PRN for Pain , Moderate, if patient can tolerate po, Routine, 09/25/21 14:04:00 EST Start Date: 09/25/21 Stop Date: 10/02/21 Status: Ordered Problem List Condition Effective Dates Status Health Status Inform ant Balanitis(Confirmed) Active Chronic low back pain(Confirmed) Active Compression fracture of lumb ar vertebra(Confirmed) Active Thrombocytopenia(Confirmed) Active Vitamin D deficiency(Confirmed) Active Vital Signs Most recent to oldest [Reference Range]: 1 2 3 Weight 87.6 kg (09/25/21 10:43 AM) Oxygen Saturation [94-100 %] 99 % (09/25/21 3:15 PM) 99 % (09/25/21 3:00 PM) 99 % (09/25/21 2:45 PM) Pulse Rate [55-90 bpm] 92 bpm *H* (09/25/21 10:43 AM) Blood Pressure [90-138/55-84 mm Hg] 105/69mm Hg (09/25/21 3:15 PM) 107/69mm Hg (09/25/21 3:00 PM) 104/74mm Hg (09/25/21 2:45 PM) Respiratory Rate [16-30 br/min] 15 br/min *L* (09/25/21 3:32 PM) 15 br/min *L* (09/25/21 3:15 PM) 16 br/min (09/25/21 3:00 PM) Temperature [96.8-100.4 DegF] 98.2 DegF (09/25/21 3:15 PM) 98.4 DegF (09/25/21 2:00 PM) 98.9 DegF (09/25/21 10:43 AM) Liters per Minute 6 L/min (09/25/21 2:00 PM) Mode of Delivery (Oxygen) Room air (09/25/21 3:15 PM) Room air (09/25/21 3:00 PM) Room air (09/25/21 2:45 PM) Blood pressure sites Arm, left (09/25/21 3:15 PM) Arm, left (09/25/21 3:00 PM) Arm, left (09/25/21 2:45 PM) Temperature Route Temporal (09/25/21 3:15 PM) Temporal (09/25/21 2:00 PM) Temporal (09/25/21 10:43 AM) Social History Social History Type Response Smoking Status Current every day margarito hoffman entered on: 07/29/17 Sex
--- OUTSIDE RECORDS SUMMARY | 2023-06-27 19:53 | XMS_ITS | Continuity of Care Document ---
Author Name Unknown Organization [facility] ter Address [address] [place] [address]- Care Team Providers Care Commodity Supervisor Name Role Phone Keaganbryan TOLEDOCl Primary Care Physician [place] [facility] [place] 07/[place]/[address] [address] Attending Physician: AdmCorinna restrepo Admitting Physician: Admtr, Corinna Referring Physician: Admtr, ArGlen Allergies, Adverse Reactions, Alerts Substance Reaction Severity [...] 0 Refills, Soft Stop, 03/06/21 15:59:00 EDT, Tablet,[id number], Partial fill upon patient request if the [...] 30 mL, 5 Refills, 04/06/21 19:53:00 EDT, [facility][id number], 178, cm, 03/06/21 10:19:00 EDT, Height Start Date: 04/06/21 Status: Ordered Lantus Solostar Pen 100 units/mL subcutaneous solution See Instructions, Take 40 units once daily. E10.65, # 30 mL, 5 Refills, 04/06/21 19:52:00 EDT, [facility] #[id number], 178, cm, 03/06/21 10:19:00 EDT, Height Start Date: 04/06/21 Status: Ordered lidocaine 5% topical film See Instructions, # 30 patch, Refills 2 Tot. Refills 2, APPLY 1 PATCH EXTERNALLY TO THE SKIN DAILY,[facility] #[id number] Start Date: 05/04/19 Status: Ordered lisinopril 2.5 mg oral tablet See Instructions, TAKE 1 TABLET BY MOUTH DAILY, # 30 tablet, Refills 3, Tot. Refills 3, Soft Stop, 03/06/21 12:10:00 EDT, Instructions Replace Required Details, Route to Pharmacy Electronically, [facility] #[id number], 178, cm, 03/06/21 10:19:00... Start Date: 03/06/21 Status: Ordered metFORMIN 500 mg oral tablet 1 tablet = 500 mg, By Mouth, 2 times a day, # 60 tablet, 3 Refills, Maintenance, 03/06/21 12:10:00 EDT, Tablet, [facility][id number], 178, cm, 03/06/21 10:19:00 EDT, Height Start [...] Refills, Maintenance, 06/11/21 9:13:00 EST, EC Capsule, [facility] #[id number], Partial fill upon patient request if the prescription is for a schedule II opioid drug., 178, cm, 06/10/21... Start Date: 06/11/21 Status: Ordered Tylenol 8 Hour 650 mg oral tablet, extended release 1 tablet = 650 mg, By Mouth, Every 8 hours, PRN as needed for pain, # 50 tablet, 1 Refills, Maintenance, 06/23/21 10:03:00 EST, ER Tablet, [facility] #[id number], Partial fill upon patient request if the prescription is for a schedule II opioid d... Start Date: 06/23/21 Status: Ordered Vitamin D3 1000 intl units oral tablet 1 tablet = 25 mcg, By Mouth, Daily, # 30 tablet, 2 Refills, Maintenance, 06/13/21 9:41:00 EST, Tablet, [facility] #[id number], Partial fill upon patient request if the [...]
--- OUTSIDE RECORDS SUMMARY | 2023-06-27 19:53 | XMS_ITS | Continuity of Care Document ---
Author Name Unknown Organization [facility] Address [address] [place] [address]- Care Team Providers Care Permastone Installer Name Role Phone Boyfavio TOLEDO Cl Primary Care Physician Encounter [facility] [place] Date(s): 02/29/20 - 03/30/20 [facility] [address] [place] [address]- [facility] Allergies, Adverse Reactions, Alerts Substance Reaction Severity [...] mL, 5 Refills, Maintenance, 10/25/19 12:37:00 EDT, [facility] #[id number], 178, cm, 10/16/19 14:26:00 EDT, Height Start Date: 10/25/19 Status: Ordered Alcohol Wipes See Instructions, # 100 each, Refills 11, Tot. Refills 11, Maintenance, Check glucose three times aday, 08/30/19 9:12:00 EST, [facility], 178, cm, 08/14/19 14:54:00 EST, Height Start Date: 08/30/19 Status: Ordered Freestyle Marva 14-day [place] Freestyle Marva 14-day [place], See Instructions, # 1 each, Refills 0, [...] 30 mL, 5 Refills, 10/25/19 12:35:00 EDT, [facility] #[id number], 178, cm, 10/16/19 14:26:00 EDT, Height Start Date: 10/25/19 Status: Ordered lidocaine 5% topical film See Instructions, # 30 patch, Refills 2 Tot. Refills 2, APPLY 1 PATCH EXTERNALLY TO THE SKIN DAILY,[facility] #[id number] Start Date: 05/04/19 Status: Ordered lisinopril 2.5 mg oral tablet See Instructions, TAKE 1 TABLET BY MOUTH DAILY, # 30 tablet, Refills 3, Tot. Refills 3, Soft Stop, 09/05/19 17:10:00 EST, Instructions Replace Required Details, Route to Pharmacy Electronically, [facility] #[id number], 178, cm, 08/14/19 14:54:00... Start Date: 09/05/19 Status: Ordered metFORMIN 500 mg oral tablet 1 tablet = 500 mg, By Mouth, 2 times a day, # 60 tablet, 3 Refills, Maintenance, 09/05/19 17:10:00 EST, Tablet, [facility] #[id number], 178, cm, 08/14/19 14:54:00 EST, Height Start Date: 09/05/19 Status: Ordered methyl salicylate topical - lotion 1 application, Topically, 3 times a day, PRN as needed for pain, # 120 Gm, 0 Refills, Maintenance, 12/29/18 15:32:43 EDT, Lotion, 1 application Topically 3 times a day,PRN:as needed for pain Start Date: 12/29/18 Status: Ordered Pen [place], 31 G x 5 mm BD Ultra Fine III See Instructions, # 100 each, Refills 5, Tot. Refills 5, Maintenance, use to inject insulin up to four times daily dx e11.9, 09/05/19 17:09:00 EST, Compound, 178, cm, 08/14/19 14:54:00 EST, Height Start Date: 09/05/19 Stop Date: 03/03/20 Status: Ordered Vitamin D 44477 iu oral capsule 50,000 International_Units, 1, capsule, By Mouth, Every week, # 4 capsule, Refills 2, Tot. Refills 2, Maintenance, 03/01/20 14:21:00 EDT, Route to Pharmacy Electronically, [email or web address][id number], 178, cm, 10/16/19 14:26:00 EDT, Height Start [...]
--- OUTSIDE RECORDS SUMMARY | 2023-06-27 19:53 | XMS_ITS | Continuity of Care Document ---
Author Name Unknown Organization [facility] Address [address] [place] [address]- Care Team Providers Care Lithographic Photographer Apprentice Name Role Phone Viktor Richards MD Primary Care Physician [phone] [place] [facility] [place] [facility] [id number] Date(s): 01/15/23 - 04/16/[address] [address]- Attending Physician: Keerthi Valencia OD, I Admitting Physician: Keerthi Valencia OD, I Allergies, Adverse Reactions, Alerts Substance Reaction Severity [...] 5 Refills, Maintenance, 04/16/23 13:51:00 EDT, Tablet, [facility], Partial fill upon patient request if the prescription is for a schedule II opioid drug., 179, cm, 10/22/22 13:00:00 EDT,... Start Date: 04/16/23 Status: Ordered BD Single Use Swab 70% topical pad See Instructions, USE PRIOR TO INJECTING INSULIN AND TESTING BLOOD GLUCOSE, # 200 Unknown, 3 Refills, [facility], 28, USE PRIOR TO INJECTING INSULIN AND TESTING BLOOD GLUCOSE, 179, cm, 12/27/21 10:24:00 EDT, Height, 79, kg, 12/27/21 10:24:00... Start Date: 02/17/22 Status: Ordered duloxetine 30 mg oral enteric coated capsule 1 capsule, By Mouth, Daily, DO NOT CHEW OR CRUSH., # 90 capsule, 0 Refills, Maintenance, 03/24/23 15:47:00 ED[facility], [facility], 179, cm, 10/22/22 13:00:00 EDT, Height, 79, [...] 1 Refills, Maintenance, 11/12/22 13:47:00 EDT, Tablet, [facility], Partial fill upon patient request if the prescription is for a schedule II opioid drug., 179, cm, 10/22/22 13:0... Start Date: 11/12/22 Status: Ordered Insulin Lispro KwikPen 100 units/mL injectable solution See Instructions, INJECT SUBCUTANEOUSLY 10-20 UNITS SUBCUTANEOUSLY 3 TIMES A DAY BEFORE MEALS PER SLIDING SCALE, # 15 mL, 4 Refills, Maintenance, 03/24/23 15:47:00 EDT, [facility], 179, cm,10/22/22 13:00:00 EDT, Height, 79, kg, 12/27/21 10:... Start Date: 03/24/23 Status: Ordered Lantus Solostar Pen 100 units/mL subcutaneous solution See Instructions, Take 40 units once daily. E10.65, # 30 mL, 5 Refills, 04/29/22 13:52:00 EDT, [facility]., 179, cm, 12/27/21 10:24:00 EDT, Height, 79, kg, 12/27/21 10:24:00 EDT, Dry Weight Start Date: 04/29/22 Status: Ordered lidocaine 5% topical film 1 patch, Topically, Daily, # 30 patch, 11 Refills, Soft Stop, 09/17/21 13:44:00 EST, [facility] #[id number], 1 patch Topically Daily,x30 days, 178, cm, 09/17/21 13:34:00 EST, Height Start Date: 09/17/21 Stop Date: 09/12/22 Status: Ordered MetFORMIN (Eqv-Glucophage XR) 500 mg oral tablet, extended release 1 tablet, By Mouth, Daily, # 90 tablet, 0 Refills, Maintenance, 03/24/23 15:47:00 EDT, [facility], 179, cm, 10/22/22 13:00:00 EDT, Height, 79, kg, 12/27/21 10:24:00 EDT, Dry Weight Start Date: 03/24/23 Status: Ordered Pen [place], 31 G x 8 mm BD Ultra [...] S Resident Member Role: PCP Address: Address: [address] [place] [address]- Care Team Related Persons Name: CLARITA BRAND Address: home [address] [place] [address] Name: LISSY OG Address: home [address] [place] [address]
--- OUTSIDE RECORDS SUMMARY | 2023-06-27 19:53 | XMS_ITS | Continuity of Care Document ---
Author Name Unknown Organization [facility] Address [address] [place] [address] [address], [address] [place] [address]- Care Team Providers Care Home Appliance Tech Name Role Phone Cl Marie DO Primary Care Physician [facility]counter [facility] Date(s): 10/22/22 - 10/29/[address], [address] [place], [place] [address] Attending Physician: Carmen Baptiste MD Referring Physician: Nav KAYE, Raegan Allergies, Adverse Reactions, Alerts Substance Reaction Severity [...] Dry Weight Start Date: 08/20/22 Status: Ordered BD Single Use Swab 70% topical pad See Instructions, USE PRIOR TO INJECTING INSULIN AND TESTING BLOOD GLUCOSE, # 200 Unknown, 3 Refills, [facility], 28, USE PRIOR TO INJECTING INSULIN AND TESTING BLOOD GLUCOSE, 179, cm, 12/27/21 10:24:00 EDT, Height, 79, kg, 12/27/21 10:24:00... Start Date: 02/17/22 Status: Ordered duloxetine 30 mg oral enteric coated capsule 1 capsule = 30 mg, By Mouth, Daily, do not crush or chew, # 90 capsule, 2 Refills, Maintenance, 09/24/22 8:18:00 EST, CR Capsule, [facility], Partial fill upon patient request if the prescription is for a schedule II opioid drug., 179,... Start Date: 09/24/22 Stop Date: 06/21/23 Status: Ordered FreeStyle 2 Marva Sensors FreeStyle 2 Marva Sensors, See Instructions, # 1 each, Refills 11, Tot. Refills 11, Maintenance, Scan reader over sensor 5 times a day to check blood sugars E11.9, 07/06/22 9:37:00 EST, Supply, 179, cm, 12/27/21 10:24:00 EDT, Height, 79, kg, 12/27/... Start Date: 07/06/22 Status: Ordered FREESTYLE MARVA SENSOR 14 D Miscellaneous FREESTYLE MARVA SENSOR 14 D Miscellaneous, See Instructions, # 2 Unknown, 1 Refills, Maintenance, SCAN READER OVER SENSOR 5 TIMES A DAY TO CHECK BLOOD SUGARS; E11.9, 07/03/22 15:46:00 EST, 179, cm, 12/27/21 10:24:00 EDT, Height, 79, kg, 12/27/21 10:24... Start Date: 07/03/22 Status: Ordered FREESTYLE MARVA SENSOR 14d FREESTYLE MARVA SENSOR 14d, See Instructions, # 2 each, Refills 0, Tot. Refills 0, Maintenance, SCAN READER OVER SENSOR 5 TIMES A DAY TO CHECK BLOOD SUGARS E11.9, 10/07/22 13:05:00 EST, Supply, 179, cm, 09/07/22 13:09:00 EST, Height, 79, kg, 2... Start Date: 10/07/22 Status: Ordered FREESTYLE LITE BLOOD GLUCSTR 50S [...] 10/14/21 Stop Date: 11/13/21 Status: Ordered gabapentin 800 mg oral tablet 1 tablet = 800 mg, By Mouth, 3 times a day, # 90 tablet, 6 Refills, Maintenance, 09/07/22 13:26:00 EST, Tablet, [facility][id number], Partial fill upon patient request if the prescription is for a schedule II opioid drug., 179, cm, 09/07/22 13:... Start Date: 09/07/22 Status: Ordered Insulin Lispro KwikPen 100 units/mL injectable solution See Instructions, Inject sq 10-20 units subcutaneously 3x a day before meals per sliding scale . E10.9, # 30 mL, 11 Refills, Maintenance, 10/16/21 13:21:00 EDT, [facility]., Partial fill upon patient request if the prescription is for a... Start Date: 10/16/21 Status: Ordered Lantus Solostar Pen 100 units/mL subcutaneous solution See Instructions, Take 40 units once daily. E10.65, # 30 mL, 5 Refills, 04/29/22 13:52:00 EDT, [facility]., 179, cm, 12/27/21 10:24:00 EDT, Height, 79, kg, 12/27/21 10:24:00 EDT, Dry Weight Start Date: 04/29/22 Status: Ordered lidocaine 5% topical film 1 patch, Topically, Daily, # 30 patch, 11 Refills, Soft Stop, 09/17/21 13:44:00 EST, [facility] #[id number], 1 patch Topically Daily,x30 days, 178, cm, 09/17/21 13:34:00 EST, Height Start Date: 09/17/21 Stop Date: 09/12/22 Status: Ordered metFORMIN 500 mg oral tablet, extended release 1 tablet = 500 mg, By Mouth, Daily, # 30 tablet, 3 Refills, Maintenance, 09/07/22 13:28:00 EST, ER Tablet, [facility] #[id number], Partial fill upon patient request if the prescription is for a schedule II opioid drug., 179, cm, 09/07/22 13:09:00... Start Date: 09/07/22 Status: Ordered Pen [place], 31 G x 8 mm BD Ultra [...] Confirmed Active Vitamin D deficiency Confirmed Active Vital Signs Most recent to oldest [Reference Range]: 1 Height 179 cm (10/22/22 1:00 PM) Weight 88 kg (10/22/22 1:00 PM) Body Mass Index [18.5-24.99 kg/m2] 27.46 kg/m2 *H* (10/22/22 1:00 PM) Social History Social History Type Response Smoking Status Current every day margarito hoffman entered on: 07/29/17 Sex Patient Care team information Care Team Personnel Name: Cl Marie DO Position: S Resident Member Role: PCP Address: Address: [address] [place] [address] Adult [place], [place] [address] Care Team Related Persons Name: CLARITA BRAND Address: home [address] [place] [address] Name: LISSY OG Address: home [address] [place] [address]
--- OUTSIDE RECORDS SUMMARY | 2023-06-27 19:53 | XMS_ITS | Continuity of Care Document ---
Author Name Unknown Organization [facility] Address [address] [place] [address] [address], [address] [place] [address]- Care Team Providers Care Magento Developer Name Role Phone Cl Marie DO Primary Care Physician [phone] Encounter [facility] Date(s): 10/22/22 - 11/21/[address], [address] [place], [place] [address] [[email or web address]] Attending Physician: [id number] Admitting Physician: Admtr, Ar8 Referring Physician: Admtr, Ar8 Allergies, Adverse Reactions, [...] BLOOD GLUCOSE, # 200 Unknown, 3 Refills, [facility], 28, USE PRIOR TO INJECTING INSULIN AND TESTING BLOOD GLUCOSE, 179, cm, 12/27/21 10:24:00 EDT, Height, 79, kg, 12/27/21 10:24:00... Start Date: 02/17/22 Status: Ordered duloxetine 30 mg oral enteric coated capsule 1 capsule = 30 mg, By Mouth, Daily, do not crush or chew, # 90 capsule, 0 Refills, Maintenance, 06/21/23 8:18:00 EST, CR Capsule, [facility], Partial fill upon patient request if the prescription is for a schedule II opioid drug., 179,... Start Date: 06/21/23 Stop Date: 09/19/23 Status: Ordered FreeStyle 2 Marva Sensors FreeStyle 2 Marva Sensors, See Instructions, # 1 each, Refills 11, Tot. Refills 11, Maintenance, Scan reader over sensor 5 times a day to check blood sugars E11.9, 11/12/22 13:44:00 EDT, Supply, 179,cm, 10/22/22 13:00:00 EDT, Height, 79, kg, 12/27... Start Date: 11/12/22 Status: Ordered FREESTYLE MARVA SENSOR 14 D [...] cm, 09/07/22 13:09:00 EST, Height, 79, kg, ... Start Date: 10/07/22 Status: Ordered FREESTYLE LITE [...] 1 Refills, Maintenance, 11/12/22 13:47:00 EDT, Tablet, [facility], Partial fill upon patient request if the prescription is for a schedule II opioid drug., 179, cm, 10/22/22 13:0... Start Date: 11/12/22 Status: Ordered Insulin Lispro KwikPen 100 units/mL injectable solution See Instructions, Inject sq 10-20 units subcutaneously 3x a day before meals per sliding scale . E10.9, # 30 mL, 2 Refills, Maintenance, 11/12/22 13:48:00 EDT, [facility] [place] Partial fill upon patient request if the prescription is for a... Start Date: 11/12/22 Status: Ordered Lantus Solostar Pen 100 units/mL subcutaneous solution See Instructions, Take 40 units once daily. E10.65, # 30 mL, 5 Refills, 04/29/22 13:52:00 EDT, [facility] [place] 179, cm, 12/27/21 10:24:00 EDT, Height, 79, kg, 12/27/21 10:24:00 EDT, Dry Weight Start Date: 04/29/22 Status: Ordered lidocaine 5% topical film 1 patch, Topically, Daily, # 30 patch, 11 Refills, Soft Stop, 09/17/21 13:44:00 EST, [facility] #[id number], 1 patch Topically Daily,x30 days, 178, cm, 09/17/21 13:34:00 EST, Height Start Date: 09/17/21 Stop Date: 09/12/22 Status: Ordered metFORMIN 500 mg oral tablet, extended release 1 tablet = 500 mg, By Mouth, Daily, # 30 tablet, 0 Refills, Maintenance, 11/12/22 13:48:00 EDT, ER Tablet, [facility], Partial fill upon patient request if the prescription is for a schedule II opioid drug., 179, cm, 10/22/22 13:00:00... Start Date: 11/12/22 Status: Ordered Pen [place], 31 G x 8 mm BD Ultra [...] S Resident Member Role: PCP Address: Address: [address] [place] [address]- Care Team Related Persons Name: CLARITA BRAND Address: home [address] [place] [address] Name: LISSY OG Address: home [address] [place] [address]
--- OUTSIDE RECORDS SUMMARY | 2023-06-27 19:53 | XMS_ITS | Continuity of Care Document ---
Author Name Unknown Organization [facility] Address [address] [place] [address]- Care Team Providers Care Vehicle Trimmer Name Role Phone Cl Marie DO Primary Care Physician [place] [facility] [place]/22/22 - 02/21/22 [facility] [address] [place], [place] [address] Allergies, Adverse Reactions, Alerts Substance Reaction [...] EST, Height Start Date: 07/21/21 Status: Ordered BD Single Use Swab 70% topical pad See Instructions, USE PRIOR TO INJECTING INSULIN AND TESTING BLOOD GLUCOSE, # 200 Unknown, 3 Refills, [facility], 28, USE PRIOR TO INJECTING INSULIN AND TESTING BLOOD GLUCOSE, 179, cm, 12/27/21 10:24:00 EDT, Height, 79, kg, 12/27/21 10:24:00... Start Date: 02/17/22 Status: Ordered duloxetine 30 mg oral enteric coated capsule 1 capsule = 30 mg, By Mouth, Daily, do not crush or chew, # 90 capsule, 11 Refills, Maintenance, 09/17/21 13:48:00 EST, CR Capsule, [id number], Partial fill upon patient request if the [...] 09/17/21 13:40:00 EST, Route to Pharmacy Electronically, [facility][id number], Partial fill upon patient request if the prescription is for a... Start Date: 09/17/21 Stop Date: 09/01/24 Status: Ordered gabapentin 400 mg oral capsule 400 mg, 1, capsule, By Mouth, 4 times a day, # 360 capsule, Refills 3, Tot. Refills 3, Maintenance,12/18/21 16:21:00 EDT, Route to Pharmacy Electronically, [facility], Partial fill upon patient request if the prescription is for a kasandra... Start Date: 12/18/21 Status: Ordered Insulin Lispro KwikPen 100 units/mL injectable solution See Instructions, Inject sq 10-20 units subcutaneously 3x a day before meals per sliding scale . E10.9, # 30 mL, 11 Refills, Maintenance, 10/16/21 13:21:00 EDT, [facility], Partial fill upon patient request if the prescription is for a... Start Date: 10/16/21 Status: Ordered Lantus Solostar Pen 100 units/mL subcutaneous solution See Instructions, Take 40 units once daily. E10.65, # 30 mL, 5 Refills, 04/06/21 19:52:00 EDT, [facility] #[id number], 178, cm, 03/06/21 10:19:00 EDT, Height Start Date: 04/06/21 Status: Ordered lidocaine 5% topical film 1 patch, Topically, Daily, # 30 patch, 11 Refills, Soft Stop, 09/17/21 13:44:00 EST, [facility] #[id number], 1 patch Topically Daily,x30 days, 178, cm, 09/17/21 13:34:00 EST, Height Start Date: 09/17/21 Stop Date: 09/12/22 Status: Ordered Pen [place], 31 G x 8 mm BD Ultra [...] Response Smoking Status Current every day margarito hfofman entered on: 07/29/17 Sex
--- OUTSIDE RECORDS SUMMARY | 2023-06-27 19:53 | XMS_ITS | Continuity of Care Document ---
Author Name Unknown Organization [facility] Address [address] [place] [address]- Care Team Providers Care Scout Name Role Phone TyAmandomallory TOLEDOSaSydney M Primary Care Physici an [facility] [place] Date(s): 07/11/19 - 08/19/19 [facility] [address] [place] [address]- [facility] Attending Physician: Not on Staff, Attending MD [...] Date: 08/04/18 Status: Ordered Freestyle Marva 14-day [place] Freestyle Marva 14-day [place], See Instructions, # 1 each, Refills 0, [...] APPLY 1 PATCH EXTERNALLY TO THE SKIN DAILY,[facility] #[id number] Start Date: 05/04/19 Status: Ordered lisinopril 2.5 mg oral tablet See Instructions, # 30 tablet, Refills 3 Tot. Refills 3, TAKE 1 TABLET BY MOUTH DAILY, [facility] #[id number] Start Date: 05/04/19 Status: Ordered metFORMIN 500 [...] pain Start Date: 12/29/18 Status: Ordered Pen [place], 31 G x 5 mm BD Ultra Fine III See Instructions, # 100 each, Refills 5, Tot. Refills 5, Maintenance, use as directed for Type 1 Diabetes Mellitus, 12/29/18 17:06:55 EDT, Compound Start Date: 12/29/18 Stop Date: 06/27/19 Status: Ordered Vitamin D 50855 iu oral capsule 50,000 International_Units, 1, capsule, By Mouth, Every week, # 4 capsule, Refills 0, Tot. Refills 0, Maintenance, 10/20/18 15:52:35 EDT, Route to Pharmacy Electronically, [id number], [facility] [id number] Start Date: 10/20/18 Status: Ordered Problem List Condition Effective Dates Status Health Status Inform ant Balanitis(Confirmed) Active Chronic low back pain(Confirmed) Active Compression fracture of lumb ar vertebra(Confirmed) Active Thrombocytopenia(Confirmed) Active Vitamin D deficiency(Confirmed) Active Social History Social History Type Response Smoking Status Current every day margarito hoffman entered on: 07/29/17 Sex
--- OUTSIDE RECORDS SUMMARY | 2023-06-27 19:53 | XMS_ITS | Continuity of Care Document ---
Author Name Unknown Organization [facility] Address [address] [place] [address]- Care Team Providers Care Cafe Worker Name Role Phone Maurice MAST, Viktor Primary Care Physician [phone] [place] [facility] [place] 02/03/23 - 04/10/23 [facility] [address] [place], [place] [address] Attending Physician: Rip Hernandez MD Admitting Physician: Rip Hernandez MD Allergies, Adverse Reactions, Alerts Substance Reaction [...] Daily, # 30 tablet, 5 Refills, Maintenance, 06/08/23 17:16:00 EDT, Tablet, [facility] #[id number], Partial fill upon patient request if the prescription is for a schedule II opioid drug., 179, cm, 10/22/22 13:00:00 EDT... Start Date: 01/07/23 Status: Ordered BD Single Use Swab 70% topical pad See Instructions, USE PRIOR TO INJECTING INSULIN AND TESTING BLOOD GLUCOSE, # 200 Unknown, 3 Refills, [facility], 28, USE PRIOR TO INJECTING INSULIN AND TESTING BLOOD GLUCOSE, 179, cm, 12/27/21 10:24:00 EDT, Height, 79, kg, 12/27/21 10:24:00... Start Date: 02/17/22 Status: Ordered duloxetine 30 mg oral enteric coated capsule 1 capsule, By Mouth, Daily, DO NOT CHEW OR CRUSH., # 90 capsule, 0 Refills, Maintenance, 03/24/23 15:47:00 EDT, [facility], 179, cm, 10/22/22 13:00:00 EDT, Height, [...] 1 Refills, Maintenance, 11/12/22 13:47:00 EDT, Tablet, [facility], Partial fill upon patient request if the prescription is for a schedule II opioid drug., 179, cm, 10/22/22 13:0... Start Date: 11/12/22 Status: Ordered Insulin Lispro KwikPen 100 units/mL injectable solution See Instructions, INJECT SUBCUTANEOUSLY 10-20 UNITS SUBCUTANEOUSLY 3 TIMES A DAY BEFORE MEALS PER SLIDING SCALE, # 15 mL, 4 Refills, Maintenance, 03/24/23 15:47:00 EDT, [facility], 179, cm,10/22/22 13:00:00 EDT, Height, 79, kg, 12/27/21 10:... Start Date: 03/24/23 Status: Ordered Lantus Solostar Pen 100 units/mL subcutaneous solution See Instructions, Take 40 units once daily. E10.65, # 30 mL, 5 Refills, 04/29/22 13:52:00 EDT, [facility]., 179, cm, 12/27/21 10:24:00 EDT, Height, 79, kg, 12/27/21 10:24:00 EDT, Dry Weight Start Date: 04/29/22 Status: Ordered lidocaine 5% topical film 1 patch, Topically, Daily, # 30 patch, 11 Refills, Soft Stop, 09/17/21 13:44:00 EST, [facility] #[id number], 1 patch Topically Daily,x30 days, 178, cm, 09/17/21 13:34:00 EST, Height Start Date: 09/17/21 Stop Date: 09/12/22 Status: Ordered MetFORMIN (Eqv-Glucophage XR) 500 mg oral tablet, extended release 1 tablet, By Mouth, Daily, # 90 tablet, 0 Refills, Maintenance, 03/24/23 15:47:00 EDT, [facility], 179, cm, 10/22/22 13:00:00 EDT, Height, 79, kg, 12/27/21 10:24:00 EDT, Dry Weight Start Date: 03/24/23 Status: Ordered Pen [place], 31 G x 8 mm BD Ultra [...] S Resident Member Role: PCP Address: Address: [address] [place] [address]- Care Team Related Persons Name: CLARITA BRAND Address: home [address] [place] [address] Name: LISSY OG Address: home [address] [place] [address]
--- OUTSIDE RECORDS SUMMARY | 2023-06-27 19:53 | XMS_ITS | Continuity of Care Document ---
Author Name Unknown Organization [facility] Address [address] [place] [address]- Care Team Providers Care Advertising Material Distributor Name Role Phone Maurice MAST, Viktor Primary Care Physician [facility] Date[facility]s): 03/15/23 - 04/14/23 [facility] [address] [place], [place] [address] Allergies, Adverse Reactions, Alerts Substance [...] 5 Refills, Maintenance, 01/07/23 17:16:00 EDT, Tablet, [facility] #[id number], Partial fill upon patient request if the prescription is for a schedule II opioid drug., 179, cm, 10/22/22 13:00:00 EDT... Start Date: 01/07/23 Status: Ordered BD Single Use Swab 70% topical pad See Instructions, USE PRIOR TO INJECTING INSULIN AND TESTING BLOOD GLUCOSE, # 200 Unknown, 3 Refills, [facility], [facility], USE PRIOR TO INJECTING INSULIN AND TESTING BLOOD GLUCOSE, 179, cm, 12/27/21 10:24:00 EDT, Height, 79, kg, 12/27/21 10:24:00... Start Date: 02/17/22 Status: Ordered duloxetine 30 mg oral enteric coated capsule 1 capsule, By Mouth, Daily, DO NOT CHEW OR CRUSH., # 90 capsule, 0 Refills, Maintenance, 03/24/23 15:47:00 EDT, [facility], 179, cm, 10/22/22 13:00:00 EDT, Height, [...] 1 Refills, Maintenance, 11/12/22 13:47:00 EDT, Tablet, [facility] Partial fill upon patient request if the prescription is for a schedule II opioid drug., 179, cm, 10/22/22 13:0... Start Date: 11/12/22 Status: Ordered Insulin Lispro KwikPen 100 units/mL injectable solution See Instructions, INJECT SUBCUTANEOUSLY 10-20 UNITS SUBCUTANEOUSLY 3 TIMES A DAY BEFORE MEALS PER SLIDING SCALE, # 15 mL, 4 Refills, Maintenance, 03/24/23 15:47:00 EDT, [facility], 179, cm,10/22/22 13:00:00 EDT, Height, 79, kg, 12/27/21 10:... Start Date: 03/24/23 Status: Ordered Lantus Solostar Pen 100 units/mL subcutaneous solution See Instructions, Take 40 units once daily. E10.65, # 30 mL, 5 Refills, 04/29/22 13:52:00 EDT, [facility] 179, cm, 12/27/21 10:24:00 EDT, Height, 79, kg, 12/27/21 10:24:00 EDT, Dry Weight Start Date: 04/29/22 Status: Ordered lidocaine 5% topical film 1 patch, Topically, Daily, # 30 patch, 11 Refills, Soft Stop, 09/17/21 13:44:00 EST, [facility] #[id number], 1 patch Topically Daily,x30 days, 178, cm, 09/17/21 13:34:00 EST, Height Start Date: 09/17/21 Stop Date: 09/12/22 Status: Ordered MetFORMIN (Eqv-Glucophage XR) 500 mg oral tablet, extended release 1 tablet, By Mouth, Daily, # 90 tablet, 0 Refills, Maintenance, 03/24/23 15:47:00 EDT, [facility], 179, cm, 10/22/22 13:00:00 EDT, Height, 79, kg, 12/27/21 10:24:00 EDT, Dry Weight Start Date: 03/24/23 Status: Ordered Pen [place], 31 G x 8 mm BD Ultra [...] Response Smoking Status Current every day sm dalton entered on: 07/29/17 Sex Patient Care team information Care Team Personnel Name: Viktor Richards MD Position: [facility] Resident Member Role: PCP Address: Address: [address] [place] [address]- Care Team Related Persons Name: CLARITA BRAND Address: home [address] [place] [address] Name: LISSY OG Address: home [address] [place] [id number]
--- OUTSIDE RECORDS SUMMARY | 2023-06-27 19:53 | XMS_ITS | Continuity of Care Document ---
Author Name Unknown Organization [facility] Address [address] [place] [address]- Care Team Providers Care Assault Amphibious Vehicle Crewman Name Role Phone Keaganbryan TOLEDO Cl Primary Care Physician [phone] [place] [facility] [place](s): 08/28/22 - 10/03/22 [facility] [address] [place], [place] [address] Attending Physician: Rip Hernandez MD Admitting Physician: [...] BLOOD GLUCOSE, # 200 Unknown, 3 Refills, [facility], 28, USE PRIOR TO INJECTING INSULIN AND TESTING BLOOD GLUCOSE, 179, cm, 12/27/21 10:24:00 EDT, Height, 79, kg, 12/27/21 10:24:00... Start Date: 02/17/22 Status: Ordered duloxetine 30 mg oral enteric coated capsule 1 capsule = 30 mg, By Mouth, Daily, do not crush or chew, # 90 capsule, 2 Refills, Maintenance, 09/24/22 8:18:00 EST, [facility], Partial fill upon patient request if [...] D Miscellaneous, See Instructions, # 2 Unknown, 0 Refills, SCAN READER OVER SENSOR 5 TIMES A DAY TO CHECK BLOOD SUGARS; E11.9, 179, cm, 12/27/21 10:24:00 EDT, Height, 79, kg, 12/27/21 10:24:00 EDT, Dry Weight Start Date: 02/24/22 Status: Ordered FREESTYLE MARVA SENSOR 14 D Miscellaneous FREESTYLE MARVA SENSOR 14 D Miscellaneous, See Instructions, # 2 Unknown, 1 Refills, Maintenance, SCAN READER OVER SENSOR 5 TIMES A DAY TO CHECK BLOOD SUGARS; E11.9, 07/03/22 15:46:00 EST, 179, cm, 12/27/21 10:24:00 EDT, Height, 79, kg, 12/27/21 10:24... Start Date: 07/03/22 Status: Ordered FREESTYLE MARVA SENSOR 14 D Miscellaneous FREESTYLE MARVA SENSOR 14 D Miscellaneous, See Instructions, # 2 Unknown, 1 Refills, Maintenance, SCAN READER OVER SENSOR 5 TIMES A DAY TO CHECK BLOOD SUGARS; E11.9, 04/21/22 8:59:00 EDT, 179, cm, 12/27/21 10:24:00 EDT, Height, 79, kg, 12/27/21 10:24:... Start Date: 04/21/22 Status: Ordered FREESTYLE LITE BLOOD GLUCSTR 50S [...] 6 Refills, Maintenance, 09/07/22 13:26:00 EST, Tablet, [facility] #[id number], Partial fill upon patient request if the prescription is for a schedule II opioid drug., 179, cm, 09/07/22 13:... Start Date: 09/07/22 Status: Ordered Insulin Lispro KwikPen 100 units/mL injectable solution See Instructions, Inject sq 10-20 units subcutaneously 3x a day before meals per sliding scale . E10.9, # 30 mL, 11 Refills, Maintenance, 10/16/21 13:21:00 EDT, [facility], Partial fill upon patient request if the prescription is for a... Start Date: 10/16/21 Status: Ordered Lantus Solostar Pen 100 units/mL subcutaneous solution See Instructions, Take 40 units once daily. E10.65, # 30 mL, 5 Refills, 04/29/22 13:52:00 EDT, [facility] 179, cm, 12/27/21 10:24:00 EDT, Height, 79, kg, 12/27/21 10:24:00 EDT, Dry Weight Start Date: 04/29/22 Status: Ordered lidocaine 5% topical film 1 patch, Topically, Daily, # 30 patch, 11 Refills, Soft Stop, 09/17/21 13:44:00 EST, [facility] #[id number], 1 patch Topically Daily,x30 days, 178, cm, 09/17/21 13:34:00 EST, Height Start Date: 09/17/21 Stop Date: 09/12/22 Status: Ordered metFORMIN 500 mg oral tablet, extended release 1 tablet = 500 mg, By Mouth, Daily, # 30 tablet, 3 Refills, Maintenance, 09/07/22 13:28:00 EST, ER Tablet, [facility] #[id number], Partial fill upon patient request if the prescription is for a schedule II opioid drug., 179, cm, 09/07/22 13:09:00... Start Date: 09/07/22 Status: Ordered Pen [place], 31 G x 8 mm BD Ultra [...] Team Personnel Name: Cl Marie DO Position: [facility] Resident Member Role: PCP Address: Address: [address] [place] [address]- Care Team Related Persons Name: CLARITA BRAND Address: home [address] [place] [address] Name: LISSY OG Address: home [address] [place] [address]
--- OUTSIDE RECORDS SUMMARY | 2023-06-27 19:53 | XMS_ITS | Continuity of Care Document ---
Author Name Unknown Organization [facility] Address [address] [place] [address]- Care Team Providers Care Sprinkler Irrigation Equipment Mechanic Name Role Phone Keaganbryan Cl [place] Primary Care Physician [phone] Encounter [facility] Date(s): 12/17/21 - 01/16/22 [facility] [address], [place] [address] Allergies, Adverse Reactions, Alerts Substance Reaction [...] Refills, Maintenance, 09/17/21 13:48:00 EST, CR Capsule, [facility] #[id number], Partial fill upon patient request if the [...] 09/17/21 13:40:00 EST, Route to Pharmacy Electronically, [facility] #[id number], Partial fill upon patient request if the prescription is for a... Start Date: 09/17/21 Stop Date: 09/01/24 Status: Ordered gabapentin 400 mg oral capsule 400 mg, 1, capsule, By Mouth, 4 times a day, # 360 capsule, Refills 3, Tot. Refills 3, Maintenance,12/18/21 16:21:00 EDT, Route to Pharmacy Electronically, [facility], Partial fill upon patient request if the prescription is for a kasandra... Start Date: 12/18/21 Status: Ordered Insulin Lispro KwikPen 100 units/mL injectable solution See Instructions, Inject sq 10-20 units subcutaneously 3x a day before meals per sliding scale . E10.9, # 30 mL, 11 Refills, Maintenance, 10/16/21 13:21:00 EDT, [facility], Partial fill upon patient request if the prescription is for a... Start Date: 10/16/21 Status: Ordered Lantus Solostar Pen 100 units/mL subcutaneous solution See Instructions, Take 40 units once daily. E10.65, # 30 mL, 5 Refills, 04/06/21 19:52:00 EDT, [facility] #[id number], 178, cm, 03/06/21 10:19:00 EDT, Height Start Date: 04/06/21 Status: Ordered lidocaine 5% topical film 1 patch, Topically, Daily, # 30 patch, 11 Refills, Soft Stop, 09/17/21 13:44:00 EST, [facility] #[id number], 1 patch Topically Daily,x30 days, 178, cm, 09/17/21 13:34:00 EST, Height Start Date: 09/17/21 Stop Date: 09/12/22 Status: Ordered Pen [place], 31 G x 8 mm BD Ultra [...]
--- OUTSIDE RECORDS SUMMARY | 2023-06-27 19:53 | XMS_ITS | Continuity of Care Document ---
Author Name Unknown Organization [facility] ter Address [address] [place] [address]- Care Team Providers Care Automobile Racer Name Role Phone TySydney Mendez DO Primary Care Physici an Encounter [facility] [place] Date(s): 09/05/19 - 10/20/[address] [address]- [facility] Attending Physician: Bassam Flaherty MD Admitting Physician: Bassam Flaherty MD Referring Physician: María GENERAL PRODUCTION MANAGER, Alycia Kovacs Allergies, Adverse Reactions, Alerts Substance Reaction Severity [...] Date: 08/30/19 Status: Ordered Freestyle Marva 14-day [place] Freestyle Marva 14-day [place], See Instructions, # 1 each, Refills 0, [...] AT BEDTIME, # 9 mL, 0 Refills, 09/05/19 17:09:00 EST, [facility] #[id number], 178, cm, 08/14/19 14:54:00 EST, Height Start Date: 09/05/19 Status: Ordered lidocaine 5% topical film See Instructions, # 30 patch, Refills 2 Tot. Refills 2, APPLY 1 PATCH EXTERNALLY TO THE SKIN DAILY,[facility] #[id number] Start Date: 05/04/19 Status: Ordered lisinopril 2.5 mg oral tablet See Instructions, TAKE 1 TABLET BY MOUTH DAILY, # 30 tablet, Refills 3, Tot. Refills 3, Soft Stop, 09/05/19 17:10:00 EST, Instructions Replace Required Details, Route to Pharmacy Electronically, [facility] #[id number], 178, cm, 08/14/19 14:54:00... Start Date: 09/05/19 Status: Ordered metFORMIN 500 mg oral tablet 1 tablet = 500 mg, By Mouth, 2 times a day, # 60 tablet, 3 Refills, Maintenance, 09/05/19 17:10:00 EST, Tablet, [facility] #[id number], 178, cm, 08/14/19 14:54:00 EST, Height Start Date: 09/05/19 Status: Ordered methyl salicylate topical - lotion 1 application, Topically, 3 times a day, PRN as needed for pain, # 120 Gm, 0 Refills, Maintenance, 12/29/18 15:32:43 EDT, Lotion, 1 application Topically 3 times a day,PRN:as needed for pain Start Date: 12/29/18 Status: Ordered Pen [place], 31 G x 5 mm BD Ultra Fine III See Instructions, # 100 each, Refills 5, Tot. Refills 5, Maintenance, use to inject insulin up to four times daily dx e11.9, 09/05/19 17:09:00 EST, Compound, 178, cm, 08/14/19 14:54:00 EST, Height Start Date: 09/05/19 Stop Date: 03/03/20 Status: Ordered Vitamin D 57808 iu oral capsule 50,000 International_Units, 1, capsule, By Mouth, Every week, # 4 capsule, Refills 0, Tot. Refills 0, Maintenance, 10/20/18 15:52:35 EDT, Route to Pharmacy Electronically, [id number], [facility] [id number] Start Date: 10/20/18 Status: Ordered Problem List Condition Effective Dates Status Health Status Inform ant Balanitis(Confirmed) Active Chronic low back pain(Confirmed) Active Compression fracture of lumb ar vertebra(Confirmed) Active Thrombocytopenia(Confirmed) Active Vitamin D deficiency(Confirmed) Active Social History Social History Type Response Smoking Status Current every day margarito hoffman entered on: 07/29/17 Sex
--- OUTSIDE RECORDS SUMMARY | 2023-06-27 19:53 | XMS_ITS | Continuity of Care Document ---
Author Name Unknown Organization [facility] Address [address] [place] [address]- Care Team Providers Care Merchant Mill Utility Worker Name Role Phone Cl Marie DO Primary Care Physician [phone] Encounter [facility] Date(s): 02/20/21 - 03/22/21 [facility] [address], [place] [address] Allergies, Adverse Reactions, Alerts Substance Reaction Severity Status amoxicillin Active penicillin Active Immunizations Given and Recorded Vaccine Date Status Refusal Reason SARS-CoV-2 (COVID-19) mRNA BNT-162b2 vac 03/06/21 Given [...] 0 Refills, Soft Stop, 03/06/21 15:59:00 EDT, Tablet,[facility] #[id number], Partial fill upon patient request if the prescription is for a schedule II opioid drug., 178, cm, 03/06/21 10:19:00 EDT, H... Start Date: 03/06/21 Status: Ordered FREESTYLE LITE BLOOD GLUCSTR 50S FREESTYLE LITE BLOOD GLUCSTR 50S, See Instructions, # 150 Unknown, 0 Refills, Maintenance, USE TO TEST BLOOD GLUCOSE FOUR TIMES DAILY, 178, cm, 03/06/21 10:19:00 EDT, Height Start Date: 03/12/21 Status: Ordered HumaLOG KwikPen 100 units/mL injectable solution See Instructions, INJECT UNDER THE SKIN THREE TIMES DAILY BEFORE MEALS PER SLIDING SCALE,100-150 4U,151-200 6U,201-250 8U,251-300 10U,301-350 12U>350 14U, # 36 mL, 0 Refills, Maintenance, [facility] #[id number], 178, cm, 03/06/21 10:19:00 EDT, He... Start Date: 03/11/21 Status: Ordered Lantus Solostar Pen 100 units/mL subcutaneous solution See Instructions, Take 30 units once daily. E10.65, # 30 mL, 5 Refills, 03/06/21 12:07:00 EDT, [facility] #[id number], 178, cm, 03/06/21 10:19:00 EDT, Height Start Date: 03/06/21 Status: Ordered lidocaine 5% topical film See Instructions, # 30 patch, Refills 2 Tot. Refills 2, APPLY 1 PATCH EXTERNALLY TO THE SKIN DAILY,[facility] #[id number] Start Date: 05/04/19 Status: Ordered lisinopril 2.5 mg oral tablet See Instructions, TAKE 1 TABLET BY MOUTH DAILY, # 30 tablet, Refills 3, Tot. Refills 3, Soft Stop, 03/06/21 12:10:00 EDT, Instructions Replace Required Details, Route to Pharmacy Electronically, [facility] #[id number], 178, cm, 03/06/21 10:19:00... Start Date: 03/06/21 Status: Ordered metFORMIN 500 mg oral tablet 1 tablet = 500 mg, By Mouth, 2 times a day, # 60 tablet, 3 Refills, Maintenance, 03/06/21 12:10:00 EDT, Tablet, [facility] #[id number], 178, cm, 03/06/21 10:19:00 EDT, Height Start Date: 03/06/21 Status: Ordered methyl salicylate topical - lotion 1 application, Topically, 3 times a day, PRN as needed for pain, # 120 Gm, 0 Refills, Maintenance, 12/29/18 15:32:43 EDT, Lotion, 1 application Topically 3 times a day,PRN:as needed for pain Start Date: 12/29/18 Status: Ordered Problem List Condition Effective Dates Status Health Status Inform ant Balanitis(Confirmed) Active Chronic low back pain(Confirmed) Active Compression fracture of lumb ar vertebra(Confirmed) Active Thrombocytopenia(Confirmed) Active Vitamin D deficiency(Confirmed) Active Social History Social History Type Response Smoking Status Current every day margarito hoffman entered on: 07/29/17 Sex
--- OUTSIDE RECORDS SUMMARY | 2023-06-27 19:53 | XMS_ITS | Continuity of Care Document ---
Author Name Unknown Organization [facility] Address [address] [place] [address]- Care Team Providers Care Auto Service Dispatcher Name Role Phone Gabino Marie DOpiter Primary Care Physician [phone] Encounter [facility] Date(s): 08/13/21 - 09/12/21 [facility] [address] [place], [place] [address] Allergies, Adverse Reactions, Alerts Substance [...] 0 Refills, Soft Stop, 03/06/21 15:59:00 EDT, Tablet,[facility] #[id number], Partial fill upon patient request if the [...] 30 mL, 5 Refills, 04/06/21 19:53:00 EDT, [facility] #[id number], 178, cm, 03/06/21 10:19:00 EDT, Height Start Date: 04/06/21 Status: Ordered Lantus Solostar Pen 100 units/mL subcutaneous solution See Instructions, Take 40 units once daily. E10.65, # 30 mL, 5 Refills, 04/06/21 19:52:00 EDT, [facility] #[id number], 178, cm, 03/06/21 10:19:00 EDT, Height Start Date: 04/06/21 Status: Ordered lidocaine 5% topical film See Instructions, APPLY 1 PATCH EXTERNALLY TO THE SKIN DAILY, # 30 patch, 2 Refills, Soft Stop, 08/14/21 14:36:00 EST, [facility] #[id number], APPLY 1 PATCH EXTERNALLY TO THE SKIN DAILY, 178, cm, 08/14/21 13:48:00 EST, Height Start Date: 08/14/21 Status: Ordered lisinopril 2.5 mg oral tablet See Instructions, TAKE 1 TABLET BY MOUTH DAILY, # 30 tablet, Refills 3, Tot. Refills 3, Soft Stop, 03/06/21 12:10:00 EDT, Instructions Replace Required Details, Route to Pharmacy Electronically, [facility] #[id number], 178, cm, 03/06/21 10:19:00... Start Date: 03/06/21 Status: Ordered metFORMIN 500 mg oral tablet 1 tablet = 500 mg, By Mouth, 2 times a day, # 60 tablet, 3 Refills, Maintenance, 03/06/21 12:10:00 EDT, Tablet, [facility] #[id number], 178, cm, 03/06/21 10:19:00 EDT, Height Start [...] Refills, Maintenance, 06/11/21 9:13:00 EST, EC Capsule, [facility] #[id number], Partial fill upon patient request if the prescription is for a schedule II opioid drug., 178, cm, 06/10/21... Start Date: 06/11/21 Status: Ordered Pen [place], 31 G x 8 mm BD Ultra [...] Refills, Maintenance, 06/23/21 10:03:00 EST, ER Tablet, [facility] #[id number], Partial fill upon patient request if the prescription is for a schedule II opioid d... Start Date: 06/23/21 Status: Ordered Vitamin D3 1000 intl units oral tablet 1 tablet = 25 mcg, By Mouth, Daily, # 30 tablet, 2 Refills, Maintenance, 06/13/21 9:41:00 EST, Tablet, [facility] #[id number], Partial fill upon patient request if the [...]
--- OUTSIDE RECORDS SUMMARY | 2023-06-27 19:53 | XMS_ITS | Continuity of Care Document ---
Author Name Unknown Organization [facility] Address [address] [place] [address]- Care Team Providers Care Manager Configuration Name Role Phone TyAmandomallory TOLEDOSaSydney M Primary Care Physici an Encounter [facility] Date(s): 06/02/19 - 07/26/19 [facility] [address] [place] [address]- [facility] Attending Physician: Rip Hernandez MD Admitting Physician: [...] VIS 06/19/2008 2Admin Note: VIS 12/2008 Medications 14 Day Marva Bock 14 Day Marva Bock, See Instructions, # 1 each, Refills 0, Tot. Refills 0, Maintenance, E11.9, 04/27/19 11:45:08 EDT, Compound Start Date: 04/27/19 Status: Ordered 14 Day Marva Sensor 14 Day Marva Sensor, See Instructions, # 2 each, Refills 11, Tot. Refills 11, Maintenance, E11.9. Please dispense 2 sensor/month, 04/27/19 11:45:03 EDT, Compound Start Date: 04/27/19 Status: Ordered Admelog SoloStar 100 units/mL injectable solution See [...] Compound Start Date: 08/04/18 Status: Ordered Freestyle Lite Lancets See Instructions, [...] Freestyle Lite Test Strips See Instructions, # 150 each, Refills 11, Tot. Refills 11, Maintenance, test blood glucose 4x daily, 08/04/18 18:20:34 EST, Compound Start Date: 08/04/18 Status: Ordered gabapentin 600 mg oral tablet 1 tablet = 600 mg, By Mouth, Daily at bedtime, # 30 tablet, 5 Refills, Maintenance, 04/28/18 17:35:35 EDT Start Date: 04/28/18 Status: Ordered Glucagon Emergency Kit See Instructions, # 1 application, Maintenance, Use if patient is unconscious, 12/29/18 15:24:16 EDT, Compound Start Date: 12/29/18 Status: Ordered Invokana 100 mg oral tablet 1 tablet = 100 mg, By Mouth, Daily, # 30 tablet, 5 Refills, Maintenance, 04/27/19 11:41:26 EDT, Tablet Start Date: 04/27/19 Status: Ordered Lantus Solostar Pen 100 units/mL subcutaneous solution See Instructions, INJECT 30 UNITS UNDER THE SKIN EVERY NIGHT AT BEDTIME, # 9 mL, 0 Refills, Maintenance, 178, cm, 04/27/19 11:01:00 EDT, Height Start Date: 07/07/19 Status: Ordered lidocaine 5% topical film See Instructions, # 30 patch, Refills 2 Tot. Refills 2, APPLY 1 PATCH EXTERNALLY TO THE SKIN DAILY,[facility] #[id number] Start Date: 05/04/19 Status: Ordered lisinopril 2.5 mg oral tablet See Instructions, # 30 tablet, Refills 3 Tot. Refills 3, TAKE 1 TABLET BY MOUTH DAILY, [facility] #[id number] Start Date: 05/04/19 Status: Ordered metFORMIN 500 [...] pain Start Date: 12/29/18 Status: Ordered Pen [place], 31 G x 5 mm BD Ultra Fine III See Instructions, # 100 each, Refills 5, Tot. Refills 5, Maintenance, use as directed for Type 1 Diabetes Mellitus, 12/29/18 17:06:55 EDT, Compound Start Date: 12/29/18 Stop Date: 06/27/19 Status: Ordered Vitamin D 71027 iu oral capsule 50,000 International_Units, 1, capsule, By Mouth, Every week, # 4 capsule, Refills 0, Tot. Refills 0, Maintenance, 10/20/18 15:52:35 EDT, Route to Pharmacy Electronically, [id number], [facility] [address] Start Date: 10/20/18 Status: Ordered Problem List Condition Effective Dates Status Health Status Inform ant Balanitis(Confirmed) Active Chronic low back pain(Confirmed) Active Compression fracture of lumb ar vertebra(Confirmed) Active Thrombocytopenia(Confirmed) Active Vitamin D deficiency(Confirmed) Active Social History Social History Type Response Smoking Status Current every day margarito hoffman entered on: 07/29/17 Sex
--- OUTSIDE RECORDS SUMMARY | 2023-06-27 19:53 | XMS_ITS | Continuity of Care Document ---
Author Name Unknown Organization [facility] ter Address [address] [place] [address]- Care Team Providers Care Master Merchandiser Name Role Phone Viktor Richards MD Primary Care Physician [phone] Encounter [facility] Date(s): 01/11/23 - 02/18/[address] [address] Attending Physician: Carmen Baptiste MD Admitting Physician: Carmen Baptiste MD Referring Physician: Carmen Baptiste MD Allergies, Adverse Reactions, [...] 5 Refills, Maintenance, 01/07/23 17:16:00 EDT, Tablet, [facility] #[id number], Partial fill upon patient request if the prescription is for a schedule II opioid drug., 179, cm, 10/22/22 13:00:00 EDT... Start Date: 01/07/23 Status: Ordered BD Single Use Swab 70% topical pad See Instructions, USE PRIOR TO INJECTING INSULIN AND TESTING BLOOD GLUCOSE, # 200 Unknown, 3 Refills, [facility], [facility], USE PRIOR TO INJECTING INSULIN [...] 1 Refills, Maintenance, 11/12/22 13:47:00 EDT, Tablet, [facility]., Partial fill upon patient request if the prescription is for a schedule II opioid drug., 179, cm, 10/22/22 13:0... Start Date: 11/12/22 Status: Ordered Insulin Lispro KwikPen 100 units/mL injectable solution See Instructions, Inject sq 10-20 units subcutaneously 3x a day before meals per sliding scale . E10.9, # 30 mL, 2 Refills, Maintenance, 11/12/22 13:48:00 EDT, [facility], Partial fill upon patient request if the prescription is for a... Start Date: 11/12/22 Status: Ordered Lantus Solostar Pen 100 units/mL subcutaneous solution See Instructions, Take 40 units once daily. E10.65, # 30 mL, 5 Refills, 04/29/22 13:52:00 EDT, [facility]., 179, cm, 12/27/21 10:24:00 EDT, Height, 79, kg, 12/27/21 10:24:00 EDT, Dry Weight Start Date: 04/29/22 Status: Ordered lidocaine 5% topical film 1 patch, Topically, Daily, # 30 patch, 11 Refills, Soft Stop, 09/17/21 13:44:00 EST, [facility] #[id number], 1 patch Topically Daily,x30 days, 178, cm, 09/17/21 13:34:00 EST, Height Start Date: 09/17/21 Stop Date: 09/12/22 Status: Ordered metFORMIN 500 mg oral tablet, extended release 1 tablet = 500 mg, By Mouth, Daily, # 30 tablet, 0 Refills, Maintenance, 11/12/22 13:48:00 EDT, ER Tablet, [facility], Partial fill upon patient request if the prescription is for a schedule II opioid drug., 179, cm, 10/22/22 13:00:00... Start Date: 11/12/22 Status: Ordered Pen [place], 31 G x 8 mm BD Ultra [...] S Resident Member Role: PCP Address: Address: [address] [place] [address]- Care Team Related Persons Name: CLARITA BRAND Address: home [address] [place] [address] Name: LISSY OG Address: home [address] [place] [address]
--- OUTSIDE RECORDS SUMMARY | 2023-06-27 19:53 | XMS_ITS | Continuity of Care Document ---
Author Name Unknown Organization [facility] Address [address] [place] [address]- Care Team Providers Care Hospital Pharmacy Technician Name Role Phone Cl Marie DO Primary Care Physician [phone] [place] [facility] Date(s): 05/14/21 - 07/19/21 [facility] [address] [place] [address]- Attending Physician: Rip Hernandez MD Admitting Physician: Rip Hernandez MD Referring Physician: Cl Marie DO Allergies, [...] 0 Refills, Soft Stop, 03/06/21 15:59:00 EDT, Tablet,[facility] #[id number], Partial fill upon patient request if the [...] 30 mL, 5 Refills, 04/06/21 19:53:00 EDT, [facility] #[id number], 178, cm, 03/06/21 10:19:00 EDT, Height Start Date: 04/06/21 Status: Ordered Lantus Solostar Pen 100 units/mL subcutaneous solution See Instructions, Take 40 units once daily. E10.65, # 30 mL, 5 Refills, 04/06/21 19:52:00 EDT, [facility] #[id number], 178, cm, 03/06/21 10:19:00 EDT, Height Start Date: 04/06/21 Status: Ordered lidocaine 5% topical film See Instructions, # 30 patch, Refills 2 Tot. Refills 2, APPLY 1 PATCH EXTERNALLY TO THE SKIN DAILY,[facility] #[id number] Start Date: 05/04/19 Status: Ordered lisinopril 2.5 mg oral tablet See Instructions, TAKE 1 TABLET BY MOUTH DAILY, # 30 tablet, Refills 3, Tot. Refills 3, Soft Stop, 03/06/21 12:10:00 EDT, Instructions Replace Required Details, Route to Pharmacy Electronically, [facility] #[id number], 178, cm, 03/06/21 10:19:00... Start Date: 03/06/21 Status: Ordered metFORMIN 500 mg oral tablet 1 tablet = 500 mg, By Mouth, 2 times a day, # 60 tablet, 3 Refills, Maintenance, 03/06/21 12:10:00 EDT, Tablet, [facility] #[id number], 178, cm, 03/06/21 10:19:00 EDT, Height Start [...] Refills, Maintenance, 06/11/21 9:13:00 EST, EC Capsule, [facility] #[id number], Partial fill upon patient request if the prescription is for a schedule II opioid drug., 178, cm, 06/10/21... Start Date: 06/11/21 Status: Ordered Tylenol 8 Hour 650 mg oral tablet, extended release 1 tablet = 650 mg, By Mouth, Every 8 hours, PRN as needed for pain, # 50 tablet, 1 Refills, Maintenance, 06/23/21 10:03:00 EST, ER Tablet, [facility] #[id number], Partial fill upon patient request if the prescription is for a schedule II opioid d... Start Date: 06/23/21 Status: Ordered Vitamin D3 1000 intl units oral tablet 1 tablet = 25 mcg, By Mouth, Daily, # 30 tablet, 2 Refills, Maintenance, 06/13/21 9:41:00 EST, Tablet, [facility] #[id number], Partial fill upon patient request if the [...]
--- OUTSIDE RECORDS SUMMARY | 2023-06-27 19:53 | XMS_ITS | Continuity of Care Document ---
Author Name Unknown Organization [facility] Address [address] [place] [address] [address], [address] [place] [address]- Care Team Providers Care Perforator Name Role Phone Maurice MAST, Viktor Primary Care Physician [place] [facility] [place](s): 01/07/23 - 02/18/23 [facility] [address] [place] [address] Drive, [address] [place], [place] [address] Attending Physician: Carmen Baptiste MD Allergies, Adverse [...] 5 Refills, Maintenance, 01/07/23 17:16:00 EDT, Tablet, [facility] #[id number], Partial fill upon patient request if the prescription is for a schedule II opioid drug., 179, cm, 10/22/22 13:00:00 EDT... Start Date: 01/07/23 Status: Ordered BD Single Use Swab 70% topical pad See Instructions, USE PRIOR TO INJECTING INSULIN AND TESTING BLOOD GLUCOSE, # 200 Unknown, 3 Refills, [facility], 28, USE PRIOR TO INJECTING INSULIN AND [...] 1 Refills, Maintenance, 11/12/22 13:47:00 EDT, Tablet, [facility], Partial fill upon patient request if the prescription is for a schedule II opioid drug., 179, cm, 10/22/22 13:0... Start Date: 11/12/22 Status: Ordered Insulin Lispro KwikPen 100 units/mL injectable solution See Instructions, Inject sq 10-20 units subcutaneously 3x a day before meals per sliding scale . E10.9, # 30 mL, 2 Refills, Maintenance, 11/12/22 13:48:00 EDT, [facility], Partial fill upon patient request if the prescription is for a... Start Date: 11/12/22 Status: Ordered Lantus Solostar Pen 100 units/mL subcutaneous solution See Instructions, Take 40 units once daily. E10.65, # 30 mL, 5 Refills, 04/29/22 13:52:00 EDT, [facility] 179, cm, 12/27/21 10:24:00 EDT, Height, 79, kg, 12/27/21 10:24:00 EDT, Dry Weight Start Date: 04/29/22 Status: Ordered lidocaine 5% topical film 1 patch, Topically, Daily, # 30 patch, 11 Refills, Soft Stop, 09/17/21 13:44:00 EST, [facility] #[id number], 1 patch Topically Daily,x30 days, 178, cm, 09/17/21 13:34:00 EST, Height Start Date: 09/17/21 Stop Date: 09/12/22 Status: Ordered metFORMIN 500 mg oral tablet, extended release 1 tablet = 500 mg, By Mouth, Daily, # 30 tablet, 0 Refills, Maintenance, 11/12/22 13:48:00 EDT, ER Tablet, [facility]., Partial fill upon patient request if the prescription is for a schedule II opioid drug., 179, cm, 10/22/22 13:00:00... Start Date: 11/12/22 Status: Ordered Pen [place], 31 G x 8 mm BD Ultra [...] S Resident Member Role: PCP Address: Address: [address] [place] [address]- Care Team Related Persons Name: CLARITA BRAND Address: [address] [place] [address] Name: LISSY OG Address: [address] [place] [address]
--- OUTSIDE RECORDS SUMMARY | 2023-06-27 19:53 | XMS_ITS | Continuity of Care Document ---
Author Name Unknown Organization [facility] Address [address] [place] [address]- Care Team Providers Care Ent Consultant Name Role Phone Cl Marie DO Primary Care Physician Encounter [facility] Date(s): 02/17/21 - 03/19/21 [facility] [address], [place] [address] Allergies, Adverse Reactions, Alerts Substance Reaction Severity [...] 0 Refills, Soft Stop, 03/06/21 15:59:00 EDT, Tablet,[facility] #[id number], Partial fill upon patient request if the [...] 14U, # 36 mL, 0 Refills, Maintenance, [facility] #[id number], 178, cm, 03/06/21 10:19:00 EDT, He... Start Date: 03/11/21 Status: Ordered Lantus Solostar Pen 100 units/mL subcutaneous solution See Instructions, Take 30 units once daily. E10.65, # 30 mL, 5 Refills, 03/06/21 12:07:00 EDT, [facility] #[id number], 178, cm, 03/06/21 10:19:00 EDT, Height Start Date: 03/06/21 Status: Ordered lidocaine 5% topical film See Instructions, # 30 patch, Refills 2 Tot. Refills 2, APPLY 1 PATCH EXTERNALLY TO THE SKIN DAILY,[facility] #[id number] Start Date: 05/04/19 Status: Ordered lisinopril 2.5 mg oral tablet See Instructions, TAKE 1 TABLET BY MOUTH DAILY, # 30 tablet, Refills 3, Tot. Refills 3, Soft Stop, 03/06/21 12:10:00 EDT, Instructions Replace Required Details, Route to Pharmacy Electronically, [facility] #[id number], 178, cm, 03/06/21 10:19:00... Start Date: 03/06/21 Status: Ordered metFORMIN 500 mg oral tablet 1 tablet = 500 mg, By Mouth, 2 times a day, # 60 tablet, 3 Refills, Maintenance, 03/06/21 12:10:00 EDT, Tablet, [facility] #[id number], 178, cm, 03/06/21 10:19:00 EDT, Height Start [...]
--- OUTSIDE RECORDS SUMMARY | 2023-06-27 19:53 | XMS_ITS | Continuity of Care Document ---
Author Name Unknown Organization [facility] Address [address] [place] [address]- Care Team Providers Care Superintendent Terminal Name Role Phone Keaganbryan Cl TOLEDO Primary Care Physician Encounter [facility] Date(s): 09/17/21 - 10/17/21 [facility] [address] [place], [place] [address] Attending Physician: Corinna Estrella Admitting Physician: Admtr, Corinna Referring Physician: Admtr, Corinna Allergies, Adverse Reactions, Alerts Substance Reaction Severity [...] Refills, Maintenance, 09/17/21 13:48:00 EST, CR Capsule, [facility] #[id number], Partial fill upon patient request if the [...] 09/17/21 13:40:00 EST, Route to Pharmacy Electronically, [facility] #[id number], Partial fill upon patient request if the prescription is for a... Start Date: 09/17/21 Stop Date: 09/01/24 Status: Ordered Insulin Lispro KwikPen 100 units/mL injectable solution See Instructions, Inject sq 10-20 units subcutaneously 3x a day before meals per sliding scale . E10.9, # 30 mL, 11 Refills, Maintenance, 10/16/21 13:21:00 EDT, [facility] Partial fill upon patient request if the prescription is for a... Start Date: 10/16/21 Status: Ordered Lantus Solostar Pen 100 units/mL subcutaneous solution See Instructions, Take 40 units once daily. E10.65, # 30 mL, 5 Refills, 04/06/21 19:52:00 EDT, [facility] #[id number], 178, cm, 03/06/21 10:19:00 EDT, Height Start Date: 04/06/21 Status: Ordered lidocaine 5% topical film 1 patch, Topically, Daily, # 30 patch, 11 Refills, Soft Stop, 09/17/21 13:44:00 EST, [facility] #[id number], 1 patch Topically Daily,x30 days, 178, cm, 09/17/21 13:34:00 EST, Height Start Date: 09/17/21 Stop Date: 09/12/22 Status: Ordered Pen [place], 31 G x 8 mm BD Ultra [...]
--- OUTSIDE RECORDS SUMMARY | 2023-06-27 19:53 | XMS_ITS | Continuity of Care Document ---
Author Name Unknown Organization [facility] Address [address] [place] [address]- Care Team Providers Care Cage Maker Machine Name Role Phone Cl Marie DO Primary Care Physician [place] [facility] [place]22 [facility] [address] [place], [place] [address] Allergies, Adverse Reactions, Alerts Substance Reaction Severity [...] BLOOD GLUCOSE, # 200 Unknown, 3 Refills, [facility], 28, USE PRIOR TO INJECTING INSULIN AND TESTING BLOOD GLUCOSE, 179, cm, 12/27/21 10:24:00 EDT, Height, 79, kg, 12/27/21 10:24:00... Start Date: 02/17/22 Status: Ordered duloxetine 30 mg oral enteric coated capsule 1 capsule = 30 mg, By Mouth, Daily, do not crush or chew, # 90 capsule, 11 Refills, Maintenance, 09/17/21 13:48:00 EST, CR Capsule, [facility] #[id number], Partial fill upon patient request if the [...] Height Start Date: 12/18/21 Status: Ordered FREESTYLE MARVA SENSOR 14 D Miscellaneous FREESTYLE MARVA SENSOR 14 D Miscellaneous, See Instructions, # 2 Unknown, 0 Refills, SCAN READER OVER SENSOR 5 TIMES A DAY TO CHECK BLOOD SUGARS; E11.9, 179, cm, 12/27/21 10:24:00 EDT, Height, 79, kg, 12/27/21 10:24:00 EDT, Dry Weight Start Date: 02/24/22 Status: Ordered FREESTYLE LITE BLOOD GLUCSTR 50S [...] 09/17/21 13:40:00 EST, Route to Pharmacy Electronically, [facility] #[id number], Partial fill upon patient request if the prescription is for a... Start Date: 09/17/21 Stop Date: 09/01/24 Status: Ordered gabapentin 400 mg oral capsule 400 mg, 1, capsule, By Mouth, 4 times a day, # 360 capsule, Refills 3, Tot. Refills 3, Maintenance,12/18/21 16:21:00 EDT, Route to Pharmacy Electronically, [facility], Partial fill upon patient request if the prescription is for a kasandra... Start Date: 12/18/21 Status: Ordered Insulin Lispro KwikPen 100 units/mL injectable solution See Instructions, Inject sq 10-20 units subcutaneously 3x a day before meals per sliding scale . E10.9, # 30 mL, 11 Refills, Maintenance, 10/16/21 13:21:00 EDT, [facility], Partial fill upon patient request if the prescription is for a... Start Date: 10/16/21 Status: Ordered Lantus Solostar Pen 100 units/mL subcutaneous solution See Instructions, Take 40 units once daily. E10.65, # 30 mL, 5 Refills, 04/06/21 19:52:00 EDT, [facility] #[id number], 178, cm, 03/06/21 10:19:00 EDT, Height Start Date: 04/06/21 Status: Ordered lidocaine 5% topical film 1 patch, Topically, Daily, # 30 patch, 11 Refills, Soft Stop, 09/17/21 13:44:00 EST, [id number], 1 patch Topically Daily,x30 days, 178, cm, 09/17/21 13:34:00 EST, Height Start Date: 09/17/21 Stop Date: 09/12/22 Status: Ordered Pen [place], 31 G x 8 mm BD Ultra [...]
--- OUTSIDE RECORDS SUMMARY | 2023-06-27 19:53 | XMS_ITS | Continuity of Care Document ---
Author Name Unknown Organization [facility] Address [address] [place] [address]- Care Team Providers Care Legal Services Manager Name Role Phone Cl Marie DO Primary Care Physician En[place] [facility] [place](s): 11/18/22 - 01/13/23 [facility] [address] [place] [address] Attending Physician: Berkley Schultz MD Admitting Physician: Berkley Schultz MD Referring Physician: Cl Marie DO Allergies, [...] 5 Refills, Maintenance, 01/07/23 17:16:00 EDT, Tablet, [facility] #[id number], Partial fill upon patient request if the prescription is for a schedule II opioid drug., 179, cm, 10/22/22 13:00:00 EDT... Start Date: 01/07/23 Status: Ordered BD Single Use Swab 70% topical pad See Instructions, USE PRIOR TO INJECTING INSULIN AND TESTING BLOOD GLUCOSE, # 200 Unknown, 3 Refills, [facility], 28, USE PRIOR TO INJECTING INSULIN [...] 1 Refills, Maintenance, 11/12/22 13:47:00 EDT, Tablet, [facility], Partial fill upon patient request if the prescription is for a schedule II opioid drug., 179, cm, 10/22/22 13:0... Start Date: 11/12/22 Status: Ordered Insulin Lispro KwikPen 100 units/mL injectable solution See Instructions, Inject sq 10-20 units subcutaneously 3x a day before meals per sliding scale . E10.9, # 30 mL, 2 Refills, Maintenance, 11/12/22 13:48:00 EDT, [facility]., Partial fill upon patient request if the prescription is for a... Start Date: 11/12/22 Status: Ordered Lantus Solostar Pen 100 units/mL subcutaneous solution See Instructions, Take 40 units once daily. E10.65, # 30 mL, 5 Refills, 04/29/22 13:52:00 EDT, [facility]., 179, cm, 12/27/21 10:24:00 EDT, Height, 79, kg, 12/27/21 10:24:00 EDT, Dry Weight Start Date: 04/29/22 Status: Ordered lidocaine 5% topical film 1 patch, Topically, Daily, # 30 patch, 11 Refills, Soft Stop, 09/17/21 13:44:00 EST, [facility] #[id number], 1 patch Topically Daily,x30 days, 178, cm, 09/17/21 13:34:00 EST, Height Start Date: 09/17/21 Stop Date: 09/12/22 Status: Ordered metFORMIN 500 mg oral tablet, extended release 1 tablet = 500 mg, By Mouth, Daily, # 30 tablet, 0 Refills, Maintenance, 11/12/22 13:48:00 EDT, ER Tablet, [facility], Partial fill upon patient request if the prescription is for a schedule II opioid drug., 179, cm, 10/22/22 13:00:00... Start Date: 11/12/22 Status: Ordered Pen [place], 31 G x 8 mm BD Ultra [...] Team Personnel Name: Cl Marie DO Position: [facility] Resident Member Role: PCP Address: Address: [address] [place] [address]- Care Team Related Persons Name: CLARITA BRAND Address: [address] [place] [address] Name: LISSY OG Address: [address] [place] [address]
--- OUTSIDE RECORDS SUMMARY | 2023-06-27 19:53 | XMS_ITS | Continuity of Care Document ---
Author Name Unknown Organization [facility] Address [address] [place] [address]- Care Team Providers Care Lime Filter Operator Name Role Phone Cl Marie DO Primary Care Physician Encounter [facility] [place] Date(s): 03/07/21 - 05/17/21 [facility] [address] [place] [address]- Attending Physician: Rip Hernandez MD Admitting Physician: [...] 0 Refills, Soft Stop, 03/06/21 15:59:00 EDT, Tablet,[facility] #[id number], Partial fill upon patient request if the [...] 30 mL, 5 Refills, 04/06/21 19:53:00 EDT, [facility] #[id number], 178, cm, 03/06/21 10:19:00 EDT, Height Start Date: 04/06/21 Status: Ordered Lantus Solostar Pen 100 units/mL subcutaneous solution See Instructions, Take 40 units once daily. E10.65, # 30 mL, 5 Refills, 04/06/21 19:52:00 EDT, [facility] #[id number], 178, cm, 03/06/21 10:19:00 EDT, Height Start Date: 04/06/21 Status: Ordered lidocaine 5% topical film See Instructions, # 30 patch, Refills 2 Tot. Refills 2, APPLY 1 PATCH EXTERNALLY TO THE SKIN DAILY,[facility] #[id number] Start Date: 05/04/19 Status: Ordered lisinopril 2.5 mg oral tablet See Instructions, TAKE 1 TABLET BY MOUTH DAILY, # 30 tablet, Refills 3, Tot. Refills 3, Soft Stop, 03/06/21 12:10:00 EDT, Instructions Replace Required Details, Route to Pharmacy Electronically, [facility] #[id number], 178, cm, 03/06/21 10:19:00... Start Date: 03/06/21 Status: Ordered metFORMIN 500 mg oral tablet 1 tablet = 500 mg, By Mouth, 2 times a day, # 60 tablet, 3 Refills, Maintenance, 03/06/21 12:10:00 EDT, Tablet, [facility] #[id number], 178, cm, 03/06/21 10:19:00 EDT, Height Start [...]
--- OUTSIDE RECORDS SUMMARY | 2023-06-27 19:53 | XMS_ITS | Continuity of Care Document ---
Author Name Unknown Organization [facility] Address [address] [place] [address]- Care Team Providers Care Pulling Unit Floorhand Name Role Phone KeaganGabino adams DOpiter Primary Care Physician [place] [facility] [place] 09[place]/21 [facility] [address] [place], [place] [address] Attending Physician: Corinna Estrella Admitting [...] 0 Refills, Soft Stop, 03/06/21 15:59:00 EDT, Tablet,[facility] #[id number], Partial fill upon patient request if the [...] 30 mL, 5 Refills, 04/06/21 19:53:00 EDT, [facility] #46912, 178, cm, 03/06/21 10:19:00 EDT, Height Start Date: 04/06/21 Status: Ordered Lantus Solostar Pen 100 units/mL subcutaneous solution See Instructions, Take 40 units once daily. E10.65, # 30 mL, 5 Refills, 04/06/21 19:52:00 EDT, [facility] #[id number], 178, cm, 03/06/21 10:19:00 EDT, Height Start Date: 04/06/21 Status: Ordered lidocaine 5% topical film See Instructions, APPLY 1 PATCH EXTERNALLY TO THE SKIN DAILY, # 30 patch, 2 Refills, Soft Stop, 08/14/21 14:36:00 EST, [facility] #78124, APPLY 1 PATCH EXTERNALLY TO THE SKIN DAILY, 178, cm, 08/14/21 13:48:00 EST, Height Start Date: 08/14/21 Status: Ordered lisinopril 2.5 mg oral tablet See Instructions, TAKE 1 TABLET BY MOUTH DAILY, # 30 tablet, Refills 3, Tot. Refills 3, Soft Stop, 03/06/21 12:10:00 EDT, Instructions Replace Required Details, Route to Pharmacy Electronically, [facility] #[id number], 178, cm, 03/06/21 10:19:00... Start Date: 03/06/21 Status: Ordered metFORMIN 500 mg oral tablet 1 tablet = 500 mg, By Mouth, 2 times a day, # 60 tablet, 3 Refills, Maintenance, 03/06/21 12:10:00 EDT, Tablet, [facility] #74205, 178, cm, 03/06/21 10:19:00 EDT, Height Start [...] Refills, Maintenance, 06/11/21 9:13:00 EST, EC Capsule, [facility] #[id number], Partial fill upon patient request if the prescription is for a schedule II opioid drug., 178, cm, 06/10/21... Start Date: 06/11/21 Status: Ordered Pen [place], 31 G x 8 mm BD Ultra [...] Refills, Maintenance, 06/23/21 10:03:00 EST, ER Tablet, [facility] #72242, Partial fill upon patient request if the prescription is for a schedule II opioid d... Start Date: 06/23/21 Status: Ordered Vitamin D3 1000 intl units oral tablet 1 tablet = 25 mcg, By Mouth, Daily, # 30 tablet, 2 Refills, Maintenance, 06/13/21 9:41:00 EST, Tablet, [facility] #[id number], Partial fill upon patient request if the [...]
--- OUTSIDE RECORDS SUMMARY | 2023-06-27 19:54 | XMS_ITS | Continuity of Care Document ---
Author Name Unknown Organization [facility] Address [address] [place] [address]- Care Team Providers Care Instrument Man Name Role Phone BoyGabino stahl DOpiter Primary Care Physician [phone] [place] [facility] [place] 07/23/21 - 09/05/21 [facility] [address] [place], [place] [address] Attending Physician: Not on Staff, Attending MD [...] 0 Refills, Soft Stop, 03/06/21 15:59:00 EDT, Tablet,[facility] #[id number], Partial fill upon patient request if the [...] 30 mL, 5 Refills, 04/06/21 19:53:00 EDT, [facility] #[id number], 178, cm, 03/06/21 10:19:00 EDT, Height Start Date: 04/06/21 Status: Ordered Lantus Solostar Pen 100 units/mL subcutaneous solution See Instructions, Take 40 units once daily. E10.65, # 30 mL, 5 Refills, 04/06/21 19:52:00 EDT, [facility] #11706, 178, cm, 03/06/21 10:19:00 EDT, Height Start Date: 04/06/21 Status: Ordered lidocaine 5% topical film See Instructions, APPLY 1 PATCH EXTERNALLY TO THE SKIN DAILY, # 30 patch, 2 Refills, Soft Stop, 08/14/21 14:36:00 EST, [facility] #[id number], APPLY 1 PATCH EXTERNALLY TO THE SKIN DAILY, 178, cm, 08/14/21 13:48:00 EST, Height Start Date: 08/14/21 Status: Ordered lisinopril 2.5 mg oral tablet See Instructions, TAKE 1 TABLET BY MOUTH DAILY, # 30 tablet, Refills 3, Tot. Refills 3, Soft Stop, 03/06/21 12:10:00 EDT, Instructions Replace Required Details, Route to Pharmacy Electronically, [facility] #[id number], 178, cm, 03/06/21 10:19:00... Start Date: 03/06/21 Status: Ordered metFORMIN 500 mg oral tablet 1 tablet = 500 mg, By Mouth, 2 times a day, # 60 tablet, 3 Refills, Maintenance, 03/06/21 12:10:00 EDT, Tablet, [facility] #[id number], 178, cm, 03/06/21 10:19:00 EDT, Height Start [...] Refills, Maintenance, 06/11/21 9:13:00 EST, EC Capsule, [facility] #[id number], Partial fill upon patient request if the prescription is for a schedule II opioid drug., 178, cm, 06/10/21... Start Date: 06/11/21 Status: Ordered Pen [place], 31 G x 8 mm BD Ultra [...] Refills, Maintenance, 06/23/21 10:03:00 EST, ER Tablet, [facility] #97607, Partial fill upon patient request if the prescription is for a schedule II opioid d... Start Date: 06/23/21 Status: Ordered Vitamin D3 1000 intl units oral tablet 1 tablet = 25 mcg, By Mouth, Daily, # 30 tablet, 2 Refills, Maintenance, 06/13/21 9:41:00 EST, Tablet, [facility] #[id number], Partial fill upon patient request if the [...]
--- OUTSIDE RECORDS SUMMARY | 2023-06-27 19:54 | XMS_ITS | Continuity of Care Document ---
Author Name Unknown Organization [facility] Address [address] [place] [address]- Care Team Providers Care Php Mysql Web Developer Name Role Phone TySydney Mendez DO Primary Care Physici an Encounter [facility] [place] Date(s): 11/15/19 - 11/25/[address] [address]- [facility] Attending Physician: Admtr, Corinna Admitting Physician: Admtr, Corinna Referring Physician: [...] mL, 5 Refills, Maintenance, 10/25/19 12:37:00 EDT, [facility] #[id number], 178, cm, 10/16/19 14:26:00 EDT, Height Start Date: 10/25/19 Status: Ordered Alcohol Wipes See Instructions, # 100 each, Refills 11, Tot. Refills 11, Maintenance, Check glucose three times aday, 08/30/19 9:12:00 EST, [facility], 178, cm, 08/14/19 14:54:00 EST, Height Start Date: 08/30/19 Status: Ordered Freestyle Marva 14-day Sunset Freestyle Marva 14-day Sunset, See Instructions, # 1 each, Refills 0, [...] 30 mL, 5 Refills, 10/25/19 12:35:00 EDT, [id number], 178, cm, 10/16/19 14:26:00 EDT, Height Start Date: 10/25/19 Status: Ordered lidocaine 5% topical film See Instructions, # 30 patch, Refills 2 Tot. Refills 2, APPLY 1 PATCH EXTERNALLY TO THE SKIN DAILY,[facility] #[id number] Start Date: 05/04/19 Status: Ordered lisinopril 2.5 mg oral tablet See Instructions, TAKE 1 TABLET BY MOUTH DAILY, # 30 tablet, Refills 3, Tot. Refills 3, Soft Stop, 09/05/19 17:10:00 EST, Instructions Replace Required Details, Route to Pharmacy Electronically, [facility] #[id number], 178, cm, 08/14/19 14:54:00... Start Date: 09/05/19 Status: Ordered metFORMIN 500 mg oral tablet 1 tablet = 500 mg, By Mouth, 2 times a day, # 60 tablet, 3 Refills, Maintenance, 09/05/19 17:10:00 EST, Tablet, [facility] #[id number], 178, cm, 08/14/19 14:54:00 EST, Height Start Date: 09/05/19 Status: Ordered methyl salicylate topical - lotion 1 application, Topically, 3 times a day, PRN as needed for pain, # 120 Gm, 0 Refills, Maintenance, 12/29/18 15:32:43 EDT, Lotion, 1 application Topically 3 times a day,PRN:as needed for pain Start Date: 12/29/18 Status: Ordered Pen [place], 31 G x 5 mm BD Ultra Fine III See Instructions, # 100 each, Refills 5, Tot. Refills 5, Maintenance, use to inject insulin up to four times daily dx e11.9, 09/05/19 17:09:00 EST, [facility], 178, cm, 08/14/19 14:54:00 EST, Height Start Date: 09/05/19 Stop Date: 03/03/20 Status: Ordered Vitamin D 33898 iu oral capsule 50,000 International_Units, 1, capsule, By Mouth, Every week, # 4 capsule, Refills 0, Tot. Refills 0, Maintenance, 10/20/18 15:52:35 EDT, Route to Pharmacy Electronically, [id number], [facility] [address] Start Date: 10/20/18 Status: Ordered Problem List Condition Effective Dates Status Health Status Inform ant Balanitis(Confirmed) Active Chronic low back pain(Confirmed) Active Compression fracture of lumb ar vertebra(Confirmed) Active Thrombocytopenia(Confirmed) Active Vitamin D deficiency(Confirmed) Active Social History Social History Type Response Smoking Status Current every day margarito hoffman entered on: 07/29/17 Sex
--- OUTSIDE RECORDS SUMMARY | 2023-06-27 19:54 | XMS_ITS | Continuity of Care Document ---
Author Name Unknown Organization [facility] Address [address] [place] [address]- Care Team Providers Care Head Men'S Tennis Coach Name Role Phone Cl Marie DO Primary Care Physician [place] [facility] [place] Date(s): 09/29/21 - 11/22/21 [facility] [address] [place], [place] [address] Attending Physician: Rip Hernandez MD Admitting [...] Refills, Maintenance, 09/17/21 13:48:00 EST, CR Capsule, [facility] #[id number], Partial fill upon patient request if the [...] 09/17/21 13:40:00 EST, Route to Pharmacy Electronically, [facility] #[id number], Partial fill upon patient request if the prescription is for a... Start Date: 09/17/21 Stop Date: 09/01/24 Status: Ordered Insulin Lispro KwikPen 100 units/mL injectable solution See Instructions, Inject sq 10-20 units subcutaneously 3x a day before meals per sliding scale . E10.9, # 30 mL, 11 Refills, Maintenance, 10/16/21 13:21:00 EDT, [facility] fill upon patient request if the prescription is for a... Start Date: 10/16/21 Status: Ordered Lantus Solostar Pen 100 units/mL subcutaneous solution See Instructions, Take 40 units once daily. E10.65, # 30 mL, 5 Refills, 04/06/21 19:52:00 EDT, [facility] #[id number], 178, cm, 03/06/21 10:19:00 EDT, Height Start Date: 04/06/21 Status: Ordered lidocaine 5% topical film 1 patch, Topically, Daily, # 30 patch, 11 Refills, Soft Stop, 09/17/21 13:44:00 EST, [facility] #[id number], 1 patch Topically Daily,x30 days, 178, cm, 09/17/21 13:34:00 EST, Height Start Date: 09/17/21 Stop Date: 09/12/22 Status: Ordered Pen [place], 31 G x 8 mm BD Ultra [...]
--- OUTSIDE RECORDS SUMMARY | 2023-06-27 19:54 | XMS_ITS | Continuity of Care Document ---
Author Name Unknown Organization [facility] Address [address] [place] [address]- Care Team Providers Care Telegraph Equipment Maintainer Name Role Phone Cl Marie DO Primary Care Physician [facility]counter [facility] Date(s): 07/17/21 - 08/16/21 [facility] [address], [place] [address] Allergies, Adverse Reactions, Alerts Substance [...] 0 Refills, Soft Stop, 03/06/21 15:59:00 EDT, Tablet,[facility] #[id number], Partial fill upon patient request if the [...] 30 mL, 5 Refills, 04/06/21 19:53:00 EDT, [facility] #[id number], 178, cm, 03/06/21 10:19:00 EDT, Height Start Date: 04/06/21 Status: Ordered Lantus Solostar Pen 100 units/mL subcutaneous solution See Instructions, Take 40 units once daily. E10.65, # 30 mL, 5 Refills, 04/06/21 19:52:00 EDT, [facility] #[id number], 178, cm, 03/06/21 10:19:00 EDT, Height Start Date: 04/06/21 Status: Ordered lidocaine 5% topical film See Instructions, APPLY 1 PATCH EXTERNALLY TO THE SKIN DAILY, # 30 patch, 2 Refills, Soft Stop, 08/14/21 14:36:00 EST, [facility] #[id number], APPLY 1 PATCH EXTERNALLY TO THE SKIN DAILY, 178, cm, 08/14/21 13:48:00 EST, Height Start Date: 08/14/21 Status: Ordered lisinopril 2.5 mg oral tablet See Instructions, TAKE 1 TABLET BY MOUTH DAILY, # 30 tablet, Refills 3, Tot. Refills 3, Soft Stop, 03/06/21 12:10:00 EDT, Instructions Replace Required Details, Route to Pharmacy Electronically, [facility] #[id number], 178, cm, 03/06/21 10:19:00... Start Date: 03/06/21 Status: Ordered metFORMIN 500 mg oral tablet 1 tablet = 500 mg, By Mouth, 2 times a day, # 60 tablet, 3 Refills, Maintenance, 03/06/21 12:10:00 EDT, Tablet, [facility] #[id number], 178, cm, 03/06/21 10:19:00 EDT, Height Start [...] Refills, Maintenance, 06/11/21 9:13:00 EST, EC Capsule, [facility] #[id number], Partial fill upon patient request if the prescription is for a schedule II opioid drug., 178, cm, 06/10/21... Start Date: 06/11/21 Status: Ordered Pen [place], 31 G x 8 mm BD Ultra Fine III See Instructions, # 120 each, Refills 11, Tot. Refills 11, Maintenance, use to inject insulin up tofour times daily. dx e11.9, 07/21/21 15:03:00 EST, Supply, 178, cm, 06/23/21 8:47:00 EST, Height Start Date: 07/21/21 Status: Ordered traMADol 50 mg oral tablet 1 tablet = 50 mg, By Mouth, Daily, for 7 days, # 7 tablet, 0 Refills, Acute 08/21/21 14:35:00 EST, 08/14/21 14:35:00 EST, [facility] #[id number], Partial fill upon patient request if the prescription is for a schedule II opioid drug., 178, cm, 01... Start Date: 08/14/21 Stop Date: 08/21/21 Status: Ordered Tylenol 8 Hour 650 mg oral tablet, extended release 1 tablet = 650 mg, By Mouth, Every 8 hours, PRN as needed for pain, # 50 tablet, 1 Refills, Maintenance, 06/23/21 10:03:00 EST, ER Tablet, [facility] #[id number], Partial fill upon patient request if the prescription is for a schedule II opioid d... Start Date: 06/23/21 Status: Ordered Vitamin D3 1000 intl units oral tablet 1 tablet = 25 mcg, By Mouth, Daily, # 30 tablet, 2 Refills, Maintenance, 06/13/21 9:41:00 EST, Tablet, [facility] #[id number], Partial fill upon patient request if the [...]
--- OUTSIDE RECORDS SUMMARY | 2023-06-27 19:54 | XMS_ITS | Continuity of Care Document ---
Author Name Unknown Organization [facility] Address [address] [place] [address]- Care Team Providers Care Leather Stamper Name Role Phone TyAmandoSydney medina DO Jeffrey Primary Care Physici an [facility]counter [facility] Date(s): 07/27/19 - 09/08/19 [facility] [address] [place] [address]- [facility] Attending Physician: Not on Staff, Attending [...] Date: 08/30/19 Status: Ordered Freestyle Marva 14-day [place] Freestyle Marva 14-day [place], See Instructions, # 1 each, Refills 0, [...] 9 mL, 0 Refills, 09/05/19 17:09:00 EST, [facility] #[id number], 178, cm, 08/14/19 14:54:00 EST, Height Start Date: 09/05/19 Status: Ordered lidocaine 5% topical film See Instructions, # 30 patch, Refills 2 Tot. Refills 2, APPLY 1 PATCH EXTERNALLY TO THE SKIN DAILY,[facility] #[id number] Start Date: 05/04/19 Status: Ordered lisinopril 2.5 mg oral tablet See Instructions, TAKE 1 TABLET BY MOUTH DAILY, # 30 tablet, Refills 3, Tot. Refills 3, Soft Stop, 09/05/19 17:10:00 EST, Instructions Replace Required Details, Route to Pharmacy Electronically, [facility] #[id number], 178, cm, 08/14/19 14:54:00... Start Date: 09/05/19 Status: Ordered metFORMIN 500 mg oral tablet 1 tablet = 500 mg, By Mouth, 2 times a day, # 60 tablet, 3 Refills, Maintenance, 09/05/19 17:10:00 EST, Tablet, [facility] #[id number], 178, cm, 08/14/19 14:54:00 EST, Height Start Date: 09/05/19 Status: Ordered methyl salicylate topical - lotion 1 application, Topically, 3 times a day, PRN as needed for pain, # 120 Gm, 0 Refills, Maintenance, 12/29/18 15:32:43 EDT, Lotion, 1 application Topically 3 times a day,PRN:as needed for pain Start Date: 12/29/18 Status: Ordered Pen [place], 31 G x 5 mm BD Ultra Fine III See Instructions, # 100 each, Refills 5, Tot. Refills 5, Maintenance, use to inject insulin up to four times daily dx e11.9, 09/05/19 17:09:00 EST, Compound, 178, cm, 08/14/19 14:54:00 EST, Height Start Date: 09/05/19 Stop Date: 03/03/20 Status: Ordered Vitamin D 31350 iu oral capsule 50,000 International_Units, 1, capsule, By Mouth, Every week, # 4 capsule, Refills 0, Tot. Refills 0, Maintenance, 10/20/18 15:52:35 EDT, Route to Pharmacy Electronically, [id number], [facility] [id number] Start Date: 10/20/18 Status: Ordered Problem List Condition Effective Dates Status Health Status Inform ant Balanitis(Confirmed) Active Chronic low back pain(Confirmed) Active Compression fracture of lumb ar vertebra(Confirmed) Active Thrombocytopenia(Confirmed) Active Vitamin D deficiency(Confirmed) Active Social History Social History Type Response Smoking Status Current every day margarito hoffman entered on: 07/29/17 Sex
--- OUTSIDE RECORDS SUMMARY | 2023-06-27 19:54 | XMS_ITS | Continuity of Care Document ---
Author Name Unknown Organization [facility] Address [address] [place] [address]- Care Team Providers Care Dockworker Name Role Phone Keaganbryan Cl TOLEDO Primary Care Physician [phone] [facility] [place] 05/23/21 - 09/06/21 [facility] [address] [place], [place] [address] Attending Physician: Rip Hernandez MD [...] 0 Refills, Soft Stop, 03/06/21 15:59:00 EDT, Tablet,[facility] #[id number], Partial fill upon patient request if the [...] 30 mL, 5 Refills, 04/06/21 19:53:00 EDT, [facility] #[id number], 178, cm, 03/06/21 10:19:00 EDT, Height Start Date: 04/06/21 Status: Ordered Lantus Solostar Pen 100 units/mL subcutaneous solution See Instructions, Take 40 units once daily. E10.65, # 30 mL, 5 Refills, 04/06/21 19:52:00 EDT, [facility] #[id number], 178, cm, 03/06/21 10:19:00 EDT, Height Start Date: 04/06/21 Status: Ordered lidocaine 5% topical film See Instructions, APPLY 1 PATCH EXTERNALLY TO THE SKIN DAILY, # 30 patch, 2 Refills, Soft Stop, 08/14/21 14:36:00 EST, [facility] #[id number], APPLY 1 PATCH EXTERNALLY TO THE SKIN DAILY, 178, cm, 08/14/21 13:48:00 EST, Height Start Date: 08/14/21 Status: Ordered lisinopril 2.5 mg oral tablet See Instructions, TAKE 1 TABLET BY MOUTH DAILY, # 30 tablet, Refills 3, Tot. Refills 3, Soft Stop, 03/06/21 12:10:00 EDT, Instructions Replace Required Details, Route to Pharmacy Electronically, [facility] #[id number], 178, cm, 03/06/21 10:19:00... Start Date: 03/06/21 Status: Ordered metFORMIN 500 mg oral tablet 1 tablet = 500 mg, By Mouth, 2 times a day, # 60 tablet, 3 Refills, Maintenance, 03/06/21 12:10:00 EDT, Tablet, [facility] #[id number], 178, cm, 03/06/21 10:19:00 EDT, Height Start [...] Refills, Maintenance, 06/11/21 9:13:00 EST, EC Capsule, [facility] #[id number], Partial fill upon patient request if the prescription is for a schedule II opioid drug., 178 cm, 06/10/21... Start Date: 06/11/21 Status: Ordered Pen [place], 31 G x 8 mm BD Ultra [...] Refills, Maintenance, 06/23/21 10:03:00 EST, ER Tablet, [facility] #[id number], Partial fill upon patient request if the prescription is for a schedule II opioid d... Start Date: 06/23/21 Status: Ordered Vitamin D3 1000 intl units oral tablet 1 tablet = 25 mcg, By Mouth, Daily, # 30 tablet, 2 Refills, Maintenance, 06/13/21 9:41:00 EST, Tablet, [facility] #[id number], Partial fill upon patient request if the [...]
--- OUTSIDE RECORDS SUMMARY | 2023-06-27 19:54 | XMS_ITS | Continuity of Care Document ---
Author Name Unknown Organization [facility] Address [address] [place] [address]- Care Team Providers Care Marketing Effectiveness Manager Name Role Phone Sydney Zheng DO Primary Care Physici an Encounter [facility] Date(s): 05/06/19 - 09/03/19 [facility] [address] [place] [address]- [facility] Attending Physician: Bassam Flaherty MD Admitting Physician: Bassam Flaherty MD Referring Physician: Sydney Zheng DO Allergies, Adverse Reactions, Alerts Substance Reaction [...] Date: 08/30/19 Status: Ordered Freestyle Marva 14-day [place] Freestyle Marva 14-day [place], See Instructions, # 1 each, Refills 0, [...] APPLY 1 PATCH EXTERNALLY TO THE SKIN DAILY,[facility] #[id number] Start Date: 05/04/19 Status: Ordered lisinopril 2.5 mg oral tablet See Instructions, # 30 tablet, Refills 3 Tot. Refills 3, TAKE 1 TABLET BY MOUTH DAILY, [facility] #[id number] Start Date: 05/04/19 Status: Ordered metFORMIN 500 [...] pain Start Date: 12/29/18 Status: Ordered Pen [place], 31 G x 5 mm BD Ultra Fine III See Instructions, # 100 each, Refills 5, Tot. Refills 5, Maintenance, use to inject insulin up to four times daily dx e11.9, 08/22/19 10:26:00 EST, Compound, 178, cm, 08/14/19 14:54:00 EST, Height Start Date: 08/22/19 Stop Date: 02/18/20 Status: Ordered Vitamin D 48391 iu oral capsule 50,000 International_Units, 1, capsule, By Mouth, Every week, # 4 capsule, Refills 0, Tot. Refills 0, Maintenance, 10/20/18 15:52:35 EDT, Route to Pharmacy Electronically, [id number], [facility] [id number] Start Date: 10/20/18 Status: Ordered Problem List Condition Effective Dates Status Health Status Inform ant Balanitis(Confirmed) Active Chronic low back pain(Confirmed) Active Compression fracture of lumb ar vertebra(Confirmed) Active Thrombocytopenia(Confirmed) Active Vitamin D deficiency(Confirmed) Active Social History Social History Type Response Smoking Status Current every day margarito hoffman entered on: 07/29/17 Sex
--- OUTSIDE RECORDS SUMMARY | 2023-06-27 19:54 | XMS_ITS | Continuity of Care Document ---
Author Name Unknown Organization [facility] Address [address] [place] [address]- Care Team Providers Care Public Health Service Officer Name Role Phone Viktor Richards MD Primary Care Physician [phone] Encounter [id number] Date(s): 03/17/23 - 04/16/[address] [address]- Attending Physician: Admtr, Ar8 Admitting Physician: Admtr, Ar8 Referring Physician: Admtr, [...] 5 Refills, Maintenance, 04/16/23 13:51:00 EDT, Tablet, [facility], Partial fill upon patient request if the prescription is for a schedule II opioid drug., 179, cm, 10/22/22 13:00:00 EDT,... Start Date: 04/16/23 Status: Ordered BD Single Use Swab 70% topical pad See Instructions, USE PRIOR TO INJECTING INSULIN AND TESTING BLOOD GLUCOSE, # 200 Unknown, 3 [facility]ills, [facility], [facility], USE PRIOR TO INJECTING INSULIN AND TESTING BLOOD GLUCOSE, 179, cm, 12/27/21 10:24:00 EDT, Height, 79, kg, 12/27/21 10:24:00... Start Date: 02/17/22 Status: Ordered duloxetine 30 mg oral enteric coated capsule 1 capsule, By Mouth, Daily, DO NOT CHEW OR CRUSH., # 90 capsule, 0 Refills, Maintenance, 03/24/23 15:47:00 EDT, [facility], 179, cm, 10/22/22 13:00:00 EDT, Height, [...] 1 Refills, Maintenance, 11/12/22 13:47:00 EDT, Tablet, [facility], Partial fill upon patient request if the prescription is for a schedule II opioid drug., 179, cm, 10/22/22 13:0... Start Date: 11/12/22 Status: Ordered Insulin Lispro KwikPen 100 units/mL injectable solution See Instructions, INJECT SUBCUTANEOUSLY 10-20 UNITS SUBCUTANEOUSLY 3 TIMES A DAY BEFORE MEALS PER SLIDING SCALE, # 15 mL, 4 Refills, Maintenance, 03/24/23 15:47:00 EDT, [facility], 179, cm,10/22/22 13:00:00 EDT, Height, 79, kg, 12/27/21 10:... Start Date: 03/24/23 Status: Ordered Lantus Solostar Pen 100 units/mL subcutaneous solution See Instructions, Take 40 units once daily. E10.65, # 30 mL, 5 Refills, 04/29/22 13:52:00 EDT, [facility], 179, cm, 12/27/21 10:24:00 EDT, Height, 79, kg, 12/27/21 10:24:00 EDT, Dry Weight Start Date: 04/29/22 Status: Ordered lidocaine 5% topical film 1 patch, Topically, Daily, # 30 patch, 11 Refills, Soft Stop, 09/17/21 13:44:00 EST, [facility] #[id number], 1 patch Topically Daily,x30 days, 178, cm, 09/17/21 13:34:00 EST, Height Start Date: 09/17/21 Stop Date: 09/12/22 Status: Ordered MetFORMIN (Eqv-Glucophage XR) 500 mg oral tablet, extended release 1 tablet, By Mouth, Daily, # 90 tablet, 0 Refills, Maintenance, 03/24/23 15:47:00 EDT, [facility], 179, cm, 10/22/22 13:00:00 EDT, Height, 79, kg, 12/27/21 10:24:00 EDT, Dry Weight Start Date: 03/24/23 Status: Ordered Pen [place], 31 G x 8 mm BD Ultra [...] Resident Member Role: PCP Address: Address: [address] [place] [id number]- Care Team Related Persons Name: CLARITA BRAND Address: home [address] [place] [address] Name: LISSY OG Address: home [address] [place], [place] [id number]
--- OUTSIDE RECORDS SUMMARY | 2023-06-27 19:54 | XMS_ITS | Continuity of Care Document ---
Author Name Unknown Organization [facility] Address [address] [place] [address]- Care Team Providers Care Pizza Maker Name Role Phone Keaganbryan Cl TOLEDO Primary Care Physician [phone] [place] [facility] [place] 05/[place] 07/19/21 [facility] [address] [place], [place] [address] Attending Physician: Rip Hernandez MD [...] 0 Refills, Soft Stop, 03/06/21 15:59:00 EDT, Tablet,[facility] #[id number], Partial fill upon patient request if the [...] 30 mL, 5 Refills, 04/06/21 19:53:00 EDT, [facility] #[id number], 178, cm, 03/06/21 10:19:00 EDT, Height Start Date: 04/06/21 Status: Ordered Lantus Solostar Pen 100 units/mL subcutaneous solution See Instructions, Take 40 units once daily. E10.65, # 30 mL, 5 Refills, 04/06/21 19:52:00 EDT, [facility] #[id number], 178, cm, 03/06/21 10:19:00 EDT, Height Start Date: 04/06/21 Status: Ordered lidocaine 5% topical film See Instructions, # 30 patch, Refills 2 Tot. Refills 2, APPLY 1 PATCH EXTERNALLY TO THE SKIN DAILY,[facility] #[id number] Start Date: 05/04/19 Status: Ordered lisinopril 2.5 mg oral tablet See Instructions, TAKE 1 TABLET BY MOUTH DAILY, # 30 tablet, Refills 3, Tot. Refills 3, Soft Stop, 03/06/21 12:10:00 EDT, Instructions Replace Required Details, Route to Pharmacy Electronically, [facility] #[id number], 178, cm, 03/06/21 10:19:00... Start Date: 03/06/21 Status: Ordered metFORMIN 500 mg oral tablet 1 tablet = 500 mg, By Mouth, 2 times a day, # 60 tablet, 3 Refills, Maintenance, 03/06/21 12:10:00 EDT, Tablet, [facility] #[id number], 178, cm, 03/06/21 10:19:00 EDT, Height Start [...] Refills, Maintenance, 06/11/21 9:13:00 EST, EC Capsule, [facility] #[id number], Partial fill upon patient request if the prescription is for a schedule II opioid drug., 178, cm, 06/10/21... Start Date: 06/11/21 Status: Ordered Tylenol 8 Hour 650 mg oral tablet, extended release 1 tablet = 650 mg, By Mouth, Every 8 hours, PRN as needed for pain, # 50 tablet, 1 Refills, Maintenance, 06/23/21 10:03:00 EST, ER Tablet, [facility] #[id number], Partial fill upon patient request if the prescription is for a schedule II opioid d... Start Date: 06/23/21 Status: Ordered Vitamin D3 1000 intl units oral tablet 1 tablet = 25 mcg, By Mouth, Daily, # 30 tablet, 2 Refills, Maintenance, 06/13/21 9:41:00 EST, Tablet, [facility] #[id number], Partial fill upon patient request if the [...]
--- OUTSIDE RECORDS SUMMARY | 2023-06-27 19:54 | XMS_ITS | Continuity of Care Document ---
Author Name Unknown Organization [facility] Address [address] [place] [address]- Care Team Providers Care Email Marketing Specialist Name Role Phone Keaganbryan TOLEDOCl Primary Care Physician Encounter [facility] Date(s): 05/23/21 - 06/22/21 [facility] [address] [place], [place] [address] Attending Physician: Not on Staff, Attending [...] VIS 06/19/2008 2Admin Note: VIS 12/2008 Medications clarithromycin 500 mg oral tablet 1 tablet = 500 mg, By Mouth, Every 12 hours, for 14 days, # 28 tablet, 0 Refills, Acute 06/27/21 10:05:00 EST, 06/13/21 10:05:00 EST, Tablet, [facility] #[id number], Partial fill upon patient request if the prescription is for a schedule II opioi... Start Date: 06/13/21 Stop Date: 06/27/21 Status: Ordered Diflucan 150 mg oral tablet 1 tablet = 150 mg, By Mouth, Once, # 1 tablet, 0 Refills, Soft Stop, 03/06/21 15:59:00 EDT, Tablet,[facility] #[id number], Partial fill upon patient request if the [...] 30 mL, 5 Refills, 04/06/21 19:53:00 EDT, [facility] #07610, 178, perri, 03/06/21 10:19:00 EDT, Height Start Date: 04/06/21 Status: Ordered Lantus Solostar Pen 100 units/mL subcutaneous solution See Instructions, Take 40 units once daily. E10.65, # 30 mL, 5 Refills, 04/06/21 19:52:00 EDT, [facility] #[id number], 178, cm, 03/06/21 10:19:00 EDT, Height Start Date: 04/06/21 Status: Ordered lidocaine 5% topical film See Instructions, # 30 patch, Refills 2 Tot. Refills 2, APPLY 1 PATCH EXTERNALLY TO THE SKIN DAILY,[facility] #56050 Start Date: 05/04/19 Status: Ordered lisinopril 2.5 mg oral tablet See Instructions, TAKE 1 TABLET BY MOUTH DAILY, # 30 tablet, Refills 3, Tot. Refills 3, Soft Stop, 03/06/21 12:10:00 EDT, Instructions Replace Required Details, Route to Pharmacy Electronically, [facility] #[id number], 178, cm, 03/06/21 10:19:00... Start Date: 03/06/21 Status: Ordered metFORMIN 500 mg oral tablet 1 tablet = 500 mg, By Mouth, 2 times a day, # 60 tablet, 3 Refills, Maintenance, 03/06/21 12:10:00 EDT, Tablet, [facility] #[id number], 178, cm, 03/06/21 10:19:00 EDT, Height Start Date: 03/06/21 Status: Ordered methyl salicylate topical - lotion 1 application, Topically, 3 times a day, PRN as needed for pain, # 120 Gm, 0 Refills, Maintenance, 12/29/18 15:32:43 EDT, Lotion, 1 application Topically 3 times a day,PRN:as needed for pain Start Date: 12/29/18 Status: Ordered metroNIDAZOLE 500 mg oral tablet 1 tablet = 500 mg, By Mouth, 3 times a day, for 14 days, # 42 tablet, 0 Refills, Acute 06/27/21 10:06:00 EST, 06/13/21 10:06:00 EST, Tablet, [facility] #76116, Partial fill upon patient request if the prescription is for a schedule II opioid... Start Date: 06/13/21 Stop Date: 06/27/21 Status: Ordered omeprazole 20 mg oral enteric coated capsule 1 capsule = 20 mg, By Mouth, 2 times a day, # 30 capsule, 0 Refills, Maintenance, 06/11/21 9:13:00 EST, EC Capsule, [facility] #[id number], Partial fill upon patient request if the prescription is for a schedule II opioid drug., 178, cm, 06/10/21... Start Date: 06/11/21 Status: Ordered Vitamin D3 1000 intl units oral tablet 1 tablet = 25 mcg, By Mouth, Daily, # 30 tablet, 2 Refills, Maintenance, 06/13/21 9:41:00 EST, Tablet, [facility] #[id number], Partial fill upon patient request if the [...]
--- OUTSIDE RECORDS SUMMARY | 2023-06-27 19:54 | XMS_ITS | Continuity of Care Document ---
Author Name Unknown Organization [facility] Address [address] [place] [address]- Care Team Providers Care Vehicle Dynamics Engineer Name Role Phone Keaganbryan TOLEDOCl Primary Care Physician [facility]counter [facility] Date(s): 04/09/22 - 05/09/22 [facility] [address] [place], [place] [address] Attending Physician: Corinna Estrella Admitting Physician: AdmtrCorinna Referring Physician: AdmtrCorinna Allergies, Adverse Reactions, Alerts Substance Reaction Severity [...] BLOOD GLUCOSE, # 200 Unknown, 3 Refills, [facility], 28, USE PRIOR TO INJECTING INSULIN AND TESTING BLOOD GLUCOSE, 179, cm, 12/27/21 10:24:00 EDT, Height, 79, kg, 12/27/21 10:24:00... Start Date: 02/17/22 Status: Ordered duloxetine 30 mg oral enteric coated capsule 1 capsule = 30 mg, By Mouth, Daily, do not crush or chew, # 90 capsule, 11 Refills, Maintenance, 09/17/21 13:48:00 EST, CR Capsule, [facility] #[id number], Partial fill upon patient request if the [...] 10/14/21 Stop Date: 11/13/21 Status: Ordered gabapentin 400 mg oral capsule 400 mg, 1, capsule, By Mouth, 4 times a day, # 120 capsule, Refills 2, Tot. Refills 2, Maintenance,03/25/22 9:15:00 EDT, Route to Pharmacy Electronically, [facility], Partial fill upon patient request if the prescription is for a sche... Start Date: 03/25/22 Stop Date: 06/23/22 Status: Ordered Insulin Lispro KwikPen 100 units/mL injectable solution See Instructions, Inject sq 10-20 units subcutaneously 3x a day before meals per sliding scale . E10.9, # 30 mL, 11 Refills, Maintenance, 10/16/21 13:21:00 EDT, [facility], Partial fill upon patient request if the prescription is for a... Start Date: 10/16/21 Status: Ordered Lantus Solostar Pen 100 units/mL subcutaneous solution See Instructions, Take 40 units once daily. E10.65, # 30 mL, 5 Refills, 04/29/22 13:52:00 EDT, [facility], 179, cm, 12/27/21 10:24:00 EDT, Height, 79, kg, 12/27/21 10:24:00 EDT, Dry Weight Start Date: 04/29/22 Status: Ordered lidocaine 5% topical film 1 patch, Topically, Daily, # 30 patch, 11 Refills, Soft Stop, 09/17/21 13:44:00 EST, [facility] #[id number], 1 patch Topically Daily,x30 days, 178, cm, 09/17/21 13:34:00 EST, Height Start Date: 09/17/21 Stop Date: 09/12/22 Status: Ordered Pen [place], 31 G x 8 mm BD Ultra Fine III See Instructions, # 120 each, Refills 11, Tot. Refills 11, Maintenance, use to inject insulin up tofour times daily. dx e11.9, 07/21/21 15:03:00 EST, Supply, 178, cm, 06/23/21 8:47:00 EST, Height Start Date: 07/21/21 Status: Ordered Problem List Condition Confirmation Course Effective Dates Status H ealth Status Informant Balanitis Confirmed Active Chronic low back pain Confirmed Active Compression fracture of lumbar vertebra Confirmed Active Thrombocytopenia Confirmed Active Vitamin D deficiency Confirmed Active Social History Social History Type Response Smoking Status Current every day margarito hoffman entered on: 07/29/17 Sex Patient Care team information Personnel Name: Cl Marie DO Address: Address: [address] [place] [address] [place], [place] [address]
--- OUTSIDE RECORDS SUMMARY | 2023-06-27 19:54 | XMS_ITS | Continuity of Care Document ---
Author Name Unknown Organization [facility] Address [address] [place] [address]- Care Team Providers Care Manufacturing Plant Manager Name Role Phone Gabino Marie DOpiter Primary Care Physician [phone] [facility]): 06/10/21 - 07/10/21 [facility] [address] [place] [address]- Allergies, Adverse Reactions, Alerts Substance Reaction Severity [...] 0 Refills, Soft Stop, 03/06/21 15:59:00 EDT, Tablet,[facility] #[id number], Partial fill upon patient request if the [...] 30 mL, 5 Refills, 04/06/21 19:53:00 EDT, [facility] #[id number], 178, cm, 03/06/21 10:19:00 EDT, Height Start Date: 04/06/21 Status: Ordered Lantus Solostar Pen 100 units/mL subcutaneous solution See Instructions, Take 40 units once daily. E10.65, # 30 mL, 5 Refills, 04/06/21 19:52:00 EDT, [facility] #[id number], 178, cm, 03/06/21 10:19:00 EDT, Height Start Date: 04/06/21 Status: Ordered lidocaine 5% topical film See Instructions, # 30 patch, Refills 2 Tot. Refills 2, APPLY 1 PATCH EXTERNALLY TO THE SKIN DAILY,[facility] #[id number] Start Date: 05/04/19 Status: Ordered lisinopril 2.5 mg oral tablet See Instructions, TAKE 1 TABLET BY MOUTH DAILY, # 30 tablet, Refills 3, Tot. Refills 3, Soft Stop, 03/06/21 12:10:00 EDT, Instructions Replace Required Details, Route to Pharmacy Electronically, [facility] #[id number], 178, cm, 03/06/21 10:19:00... Start Date: 03/06/21 Status: Ordered metFORMIN 500 mg oral tablet 1 tablet = 500 mg, By Mouth, 2 times a day, # 60 tablet, 3 Refills, Maintenance, 03/06/21 12:10:00 EDT, Tablet, [facility] #[id number], 178, cm, 03/06/21 10:19:00 EDT, Height Start [...] Refills, Maintenance, 06/11/21 9:13:00 EST, EC Capsule, [facility] #[id number], Partial fill upon patient request if the prescription is for a schedule II opioid drug., 178, cm, 06/10/21... Start Date: 06/11/21 Status: Ordered Tylenol 8 Hour 650 mg oral tablet, extended release 1 tablet = 650 mg, By Mouth, Every 8 hours, PRN as needed for pain, # 50 tablet, 1 Refills, Maintenance, 06/23/21 10:03:00 EST, ER Tablet, [facility] #[id number], Partial fill upon patient request if the prescription is for a schedule II opioid d... Start Date: 06/23/21 Status: Ordered Vitamin D3 1000 intl units oral tablet 1 tablet = 25 mcg, By Mouth, Daily, # 30 tablet, 2 Refills, Maintenance, 06/13/21 9:41:00 EST, Tablet, [facility] #[id number], Partial fill upon patient request if the [...] Type Response Smoking Status Current every day maragrito hoffman entered on: 07/29/17 Sex
--- OUTSIDE RECORDS SUMMARY | 2023-06-27 19:54 | XMS_ITS | Continuity of Care Document ---
Author Name Unknown Organization [facility] Address [address] [place] [address]- Care Team Providers Care Surface Ship Usw Supervisor Name Role Phone Cl Marie DO Primary Care Physician [facility]): 11/27/20 - 12/27/20 [facility] [address] [place], [place] [address] Allergies, Adverse Reactions, Alerts Substance Reaction [...] mL, 5 Refills, Maintenance, 10/25/19 12:37:00 EDT, [facility] #[id number], 178, cm, 10/16/19 14:26:00 EDT, Height Start Date: 10/25/19 Status: Ordered Alcohol Wipes See Instructions, # 100 each, Refills 11, Tot. Refills 11, Maintenance, Check glucose three times aday, 08/30/19 9:12:00 EST, Compound, 178, cm, 08/14/19 14:54:00 EST, Height Start Date: 08/30/19 Status: Ordered Freestyle Marva 14-day [place] Freestyle Marva 14-day [place], See Instructions, # 1 each, Refills 0, [...] 30 mL, 5 Refills, 10/25/19 12:35:00 EDT, [facility] #[id number], 178, cm, 10/16/19 14:26:00 EDT, Height Start Date: 10/25/19 Status: Ordered lidocaine 5% topical film See Instructions, # 30 patch, Refills 2 Tot. Refills 2, APPLY 1 PATCH EXTERNALLY TO THE SKIN DAILY,[facility] #[id number] Start Date: 05/04/19 Status: Ordered lisinopril 2.5 mg oral tablet See Instructions, TAKE 1 TABLET BY MOUTH DAILY, # 30 tablet, Refills 3, Tot. Refills 3, Soft Stop, 09/05/19 17:10:00 EST, Instructions Replace Required Details, Route to Pharmacy Electronically, [facility] #[id number], 178, cm, 08/14/19 14:54:00... Start Date: 09/05/19 Status: Ordered metFORMIN 500 mg oral tablet 1 tablet = 500 mg, By Mouth, 2 times a day, # 60 tablet, 3 Refills, Maintenance, 09/05/19 17:10:00 EST, Tablet, [facility] #[id number], 178, cm, 08/14/19 14:54:00 EST, Height Start Date: 09/05/19 Status: Ordered methyl salicylate topical - lotion 1 application, Topically, 3 times a day, PRN as needed for pain, # 120 Gm, 0 Refills, Maintenance, 12/29/18 15:32:43 EDT, Lotion, 1 application Topically 3 times a day,PRN:as needed for pain Start Date: 12/29/18 Status: Ordered Pen [place], 31 G x 5 mm BD Ultra Fine III See Instructions, # 100 each, Refills 5, Tot. Refills 5, Maintenance, use to inject insulin up to four times daily dx e11.9, 09/05/19 17:09:00 EST, Compound, 178, cm, 08/14/19 14:54:00 EST, Height Start Date: 09/05/19 Stop Date: 03/03/20 Status: Ordered Vitamin D 50964 iu oral capsule 50,000 International_Units, 1, capsule, By Mouth, Every week, # 4 capsule, Refills 2, Tot. Refills 2, Maintenance, 03/01/20 14:21:00 EDT, Route to Pharmacy Electronically, [facility] #[id number], 178, cm, 10/16/19 14:26:00 EDT, Height Start [...]
--- OUTSIDE RECORDS SUMMARY | 2023-06-27 19:54 | XMS_ITS | Continuity of Care Document ---
Author Name Unknown Organization [facility] ter Address [address] [place] [address]- Care Team Providers Care Party Demonstrator Name Role Phone MildredanjelSydney Mendez DO Primary Care Physici an [place] [facility] [place] 10/16/19 - 12/15/[address] [address]- [facility] Attending Physician: María KAYE, Alycia Kovacs Admitting Physician: María KAYE, Alycia Kovacs Referring Physician: María KAYE, Alycia Kovacs Allergies, Adverse Reactions, Alerts Substance [...] mL, 5 Refills, Maintenance, 10/25/19 12:37:00 EDT, [facility] #[id number], 178, cm, 10/16/19 14:26:00 EDT, Height Start Date: 10/25/19 Status: Ordered Alcohol Wipes See Instructions, # 100 each, Refills 11, Tot. Refills 11, Maintenance, Check glucose three times aday, 08/30/19 9:12:00 EST, Compound, 178, cm, 08/14/19 14:54:00 EST, Height Start Date: 08/30/19 Status: Ordered Freestyle Marva 14-day [place] Freestyle Marva 14-day [place], See Instructions, # 1 each, Refills 0, [...] 30 mL, 5 Refills, 10/25/19 12:35:00 EDT, [facility] #[id number], 178, cm, 10/16/19 14:26:00 EDT, Height Start Date: 10/25/19 Status: Ordered lidocaine 5% topical film See Instructions, # 30 patch, Refills 2 Tot. Refills 2, APPLY 1 PATCH EXTERNALLY TO THE SKIN DAILY,[facility] #[id number] Start Date: 05/04/19 Status: Ordered lisinopril 2.5 mg oral tablet See Instructions, TAKE 1 TABLET BY MOUTH DAILY, # 30 tablet, Refills 3, Tot. Refills 3, Soft Stop, 09/05/19 17:10:00 EST, Instructions Replace Required Details, Route to Pharmacy Electronically, [facility] #[id number], 178, cm, 08/14/19 14:54:00... Start Date: 09/05/19 Status: Ordered metFORMIN 500 mg oral tablet 1 tablet = 500 mg, By Mouth, 2 times a day, # 60 tablet, 3 Refills, Maintenance, 09/05/19 17:10:00 EST, Tablet, [facility] #[id number], 178, cm, 08/14/19 14:54:00 EST, Height Start Date: 09/05/19 Status: Ordered methyl salicylate topical - lotion 1 application, Topically, 3 times a day, PRN as needed for pain, # 120 Gm, 0 Refills, Maintenance, 12/29/18 15:32:43 EDT, Lotion, 1 application Topically 3 times a day,PRN:as needed for pain Start Date: 12/29/18 Status: Ordered Pen [place], 31 G x 5 mm BD Ultra Fine III See Instructions, # 100 each, Refills 5, Tot. Refills 5, Maintenance, use to inject insulin up to four times daily dx e11.9, 09/05/19 17:09:00 EST, Compound, 178, cm, 08/14/19 14:54:00 EST, Height Start Date: 09/05/19 Stop Date: 03/03/20 Status: Ordered Vitamin D 66017 iu oral capsule 50,000 International_Units, 1, capsule, By Mouth, Every week, # 4 capsule, Refills 0, Tot. Refills 0, Maintenance, 10/20/18 15:52:35 EDT, Route to Pharmacy Electronically, [id number], [id number] Start Date: 10/20/18 Status: Ordered Problem List Condition Effective Dates Status Health Status Inform ant Balanitis(Confirmed) Active Chronic low back pain(Confirmed) Active Compression fracture of lumb ar vertebra(Confirmed) Active Thrombocytopenia(Confirmed) Active Vitamin D deficiency(Confirmed) Active Social History Social History Type Response Smoking Status Current every day amrgarito hoffman entered on: 07/29/17 Sex
--- OUTSIDE RECORDS SUMMARY | 2023-06-27 19:54 | XMS_ITS | Continuity of Care Document ---
Author Name Unknown Organization [facility] Address [address] [place] [address]- Care Team Providers Care Certified Travel Counselor Name Role Phone Keaganbryan TOLEDO Cl Primary Care Physician [phone] [facility]s): 02/28/20 - 03/29/20 [facility] [address] [place] [address]- [facility] Allergies, Adverse Reactions, Alerts Substance [...] mL, 5 Refills, Maintenance, 10/25/19 12:37:00 EDT, [facility] #[id number], 178, cm, 10/16/19 14:26:00 EDT, Height Start Date: 10/25/19 Status: Ordered Alcohol Wipes See Instructions, # 100 each, Refills 11, Tot. Refills 11, Maintenance, Check glucose three times aday, 08/30/19 9:12:00 EST, Compound, 178, cm, 08/14/19 14:54:00 EST, Height Start Date: 08/30/19 Status: Ordered Freestyle Marva 14-day [place] Freestyle Marva 14-day [place], See Instructions, # 1 each, Refills 0, [...] 30 mL, 5 Refills, 10/25/19 12:35:00 EDT, [facility] #[id number], 178, cm, 10/16/19 14:26:00 EDT, Height Start Date: 10/25/19 Status: Ordered lidocaine 5% topical film See Instructions, # 30 patch, Refills 2 Tot. Refills 2, APPLY 1 PATCH EXTERNALLY TO THE SKIN DAILY,[facility] #[id number] Start Date: 05/04/19 Status: Ordered lisinopril 2.5 mg oral tablet See Instructions, TAKE 1 TABLET BY MOUTH DAILY, # 30 tablet, Refills 3, Tot. Refills 3, Soft Stop, 09/05/19 17:10:00 EST, Instructions Replace Required Details, Route to Pharmacy Electronically, [facility] #[id number], 178, cm, 08/14/19 14:54:00... Start Date: 09/05/19 Status: Ordered metFORMIN 500 mg oral tablet 1 tablet = 500 mg, By Mouth, 2 times a day, # 60 tablet, 3 Refills, Maintenance, 09/05/19 17:10:00 EST, Tablet, [facility] #41742, 178, cm, 08/14/19 14:54:00 EST, Height Start Date: 09/05/19 Status: Ordered methyl salicylate topical - lotion 1 application, Topically, 3 times a day, PRN as needed for pain, # 120 Gm, 0 Refills, Maintenance, 12/29/18 15:32:43 EDT, Lotion, 1 application Topically 3 times a day,PRN:as needed for pain Start Date: 12/29/18 Status: Ordered Pen [place], 31 G x 5 mm BD Ultra Fine III See Instructions, # 100 each, Refills 5, Tot. Refills 5, Maintenance, use to inject insulin up to four times daily dx e11.9, 09/05/19 17:09:00 EST, Compound, 178, cm, 08/14/19 14:54:00 EST, Height Start Date: 09/05/19 Stop Date: 03/03/20 Status: Ordered Vitamin D 71451 iu oral capsule 50,000 International_Units, 1, capsule, By Mouth, Every week, # 4 capsule, Refills 2, Tot. Refills 2, Maintenance, 03/01/20 14:21:00 EDT, Route to Pharmacy Electronically, [facility][id number], 178, cm, 10/16/19 14:26:00 EDT, Height Start [...]
--- OUTSIDE RECORDS SUMMARY | 2023-06-27 19:54 | XMS_ITS | Continuity of Care Document ---
Author Name Unknown Organization [facility] Address [address] [place] [address]- Care Team Providers Care Security Flex Officer Name Role Phone Keaganbryan TOLEDO Cl Primary Care Physician [facility]s): 03/25/22 - 04/24/22 [facility] [address] [place], [place] [address] Allergies, Adverse Reactions, Alerts Substance [...] BLOOD GLUCOSE, # 200 Unknown, 3 Refills, [facility], 28, USE PRIOR TO INJECTING INSULIN AND TESTING BLOOD GLUCOSE, 179, cm, 12/27/21 10:24:00 EDT, Height, 79, kg, 12/27/21 10:24:00... Start Date: 02/17/22 Status: Ordered duloxetine 30 mg oral enteric coated capsule 1 capsule = 30 mg, By Mouth, Daily, do not crush or chew, # 90 capsule, 11 Refills, Maintenance, 09/17/21 13:48:00 EST, CR Capsule, [facility] #[id number], Partial fill upon patient request if the [...] Maintenance,03/25/22 9:15:00 EDT, Route to Pharmacy Electronically, [facility], Partial fill upon patient request if the prescription is for a sche... Start Date: 03/25/22 Stop Date: 06/23/22 Status: Ordered Insulin Lispro KwikPen 100 units/mL injectable solution See Instructions, Inject sq 10-20 units subcutaneously 3x a day before meals per sliding scale . E10.9, # 30 mL, 11 Refills, Maintenance, 10/16/21 13:21:00 EDT, [facility], Partial fill upon patient request if the prescription is for a... Start Date: 10/16/21 Status: Ordered Lantus Solostar Pen 100 units/mL subcutaneous solution See Instructions, Take 40 units once daily. E10.65, # 30 mL, 5 Refills, 04/06/21 19:52:00 EDT, [facility] #[id number], 178, cm, 03/06/21 10:19:00 EDT, Height Start Date: 04/06/21 Status: Ordered lidocaine 5% topical film 1 patch, Topically, Daily, # 30 patch, 11 Refills, Soft Stop, 09/17/21 13:44:00 EST, [facility] #[id number], 1 patch Topically Daily,x30 days, 178, cm, 09/17/21 13:34:00 EST, Height Start Date: 09/17/21 Stop Date: 09/12/22 Status: Ordered Pen [place], 31 G x 8 mm BD Ultra [...] day margarito hoffman entered on: 07/29/17 Sex Care Team Personnel Name: Cl Marie DO Address: [address] [place] [address]
--- OUTSIDE RECORDS SUMMARY | 2023-06-27 19:55 | XMS_ITS | Continuity of Care Document ---
Author Name Unknown Organization [facility] Address [address] [place] [address]- Care Team Providers Care Fare Collector Name Role Phone BoyGabino stahl DOpiter Primary Care Physician [phone] [facility]s): 03/06/21 - 05/03/21 [facility] [address] [place], [place] [address] Attending Physician: Not on Staff, Attending MD [...] 0 Refills, Soft Stop, 03/06/21 15:59:00 EDT, Tablet,[facility] #[id number], Partial fill upon patient request if the [...] 30 mL, 5 Refills, 04/06/21 19:53:00 EDT, [facility] #83649, 178, cm, 03/06/21 10:19:00 EDT, Height Start Date: 04/06/21 Status: Ordered Lantus Solostar Pen 100 units/mL subcutaneous solution See Instructions, Take 40 units once daily. E10.65, # 30 mL, 5 Refills, 04/06/21 19:52:00 EDT, [facility] #64348, 178, cm, 03/06/21 10:19:00 EDT, Height Start Date: 04/06/21 Status: Ordered lidocaine 5% topical film See Instructions, # 30 patch, Refills 2 Tot. Refills 2, APPLY 1 PATCH EXTERNALLY TO THE SKIN DAILY,[facility] #[id number] Start Date: 05/04/19 Status: Ordered lisinopril 2.5 mg oral tablet See Instructions, TAKE 1 TABLET BY MOUTH DAILY, # 30 tablet, Refills 3, Tot. Refills 3, Soft Stop, 03/06/21 12:10:00 EDT, Instructions Replace Required Details, Route to Pharmacy Electronically, [facility] #[id number], 178, cm, 03/06/21 10:19:00... Start Date: 03/06/21 Status: Ordered metFORMIN 500 mg oral tablet 1 tablet = 500 mg, By Mouth, 2 times a day, # 60 tablet, 3 Refills, Maintenance, 03/06/21 12:10:00 EDT, Tablet, [facility] #[id number], 178, cm, 03/06/21 10:19:00 EDT, Height Start [...]
--- OUTSIDE RECORDS SUMMARY | 2023-06-27 19:55 | XMS_ITS | Continuity of Care Document ---
Author Name Unknown Organization [facility] Address [address] [place] [address]- Care Team Providers Care Branch Rental Manager Name Role Phone Cl Marie DO Primary Care Physician [facility]): 09/08/22 - 12/11/22 [facility] [address] [place], [place] [address] Attending Physician: Rip Hernandez MD Admitting Physician: [...] BLOOD GLUCOSE, # 200 Unknown, 3 Refills, [facility], 28, USE PRIOR TO INJECTING INSULIN AND TESTING BLOOD GLUCOSE, 179, cm, 12/27/21 10:24:00 EDT, Height, 79, kg, 12/27/21 10:24:00... Start Date: 02/17/22 Status: Ordered FREESTYLE NHI SENSOR 14d FREESTYLE NHI SENSOR 14d, See Instructions, # 2 each, Refills 11, Tot. Refills 11, Maintenance, SCAN READER OVER SENSOR 5 TIMES A DAY TO CHECK BLOOD SUGARS E11.9, 12/08/22 10:00:00 EDT, [facility], 179, cm, 10/22/22 13:00:00 EDT, Height, 79, kg, 12/27... Start Date: 12/08/22 Status: Ordered FREESTYLE LITE BLOOD GLUCSTR 50S [...] 1 Refills, Maintenance, 11/12/22 13:47:00 EDT, Tablet, [facility], Partial fill upon patient request if the prescription is for a schedule II opioid drug., 179, cm, 10/22/22 13:0... Start Date: 11/12/22 Status: Ordered Insulin Lispro KwikPen 100 units/mL injectable solution See Instructions, Inject sq 10-20 units subcutaneously 3x a day before meals per sliding scale . E10.9, # 30 mL, 2 Refills, Maintenance, 11/12/22 13:48:00 EDT, [facility] Partial fill upon patient request if the prescription is for a... Start Date: 11/12/22 Status: Ordered Lantus Solostar Pen 100 units/mL subcutaneous solution See Instructions, Take 40 units once daily. E10.65, # 30 mL, 5 Refills, 04/29/22 13:52:00 EDT, [facility]., 179, cm, 12/27/21 10:24:00 EDT, Height, 79, kg, 12/27/21 10:24:00 EDT, Dry Weight Start Date: 04/29/22 Status: Ordered lidocaine 5% topical film 1 patch, Topically, Daily, # 30 patch, 11 Refills, Soft Stop, 09/17/21 13:44:00 EST, [facility] #[id number], 1 patch Topically Daily,x30 days, 178, cm, 09/17/21 13:34:00 EST, Height Start Date: 09/17/21 Stop Date: 09/12/22 Status: Ordered metFORMIN 500 mg oral tablet, extended release 1 tablet = 500 mg, By Mouth, Daily, # 30 tablet, 0 Refills, Maintenance, 11/12/22 13:48:00 EDT, ER Tablet, [facility], Partial fill upon patient request if the prescription is for a schedule II opioid drug., 179, cm, 10/22/22 13:00:00... Start Date: 11/12/22 Status: Ordered Pen [place], 31 G x 8 mm BD Ultra [...] S Resident Member Role: PCP Address: Address: [address] [place] [address]- Care Team Related Persons Name: CLARITA BRAND Address: home [address] [place] [address] Name: LISSY OG Address: home [address] [place] [address]
--- OUTSIDE RECORDS SUMMARY | 2023-06-27 19:55 | XMS_ITS | Continuity of Care Document ---
Author Name Unknown Organization [facility] Address [address] [place] [address] [address], [address] [place] [address]- Care Team Providers Care Formulation Chemist Name Role Phone Cl Marie DO Primary Care Physician [facility] 09/23/22 - 10/23/[address], [address] [place], [place] [address] Allergies, Adverse Reactions, Alerts Substance Reaction Severity [...] 200 Unknown, 3 Refills, [facility], 28, USE PRIOR TO INJECTING INSULIN AND TESTING BLOOD GLUCOSE, 179, cm, 12/27/21 10:24:00 EDT, Height, 79, kg, 12/27/21 10:24:00... Start Date: 02/17/22 Status: Ordered duloxetine 30 mg oral enteric coated capsule 1 capsule = 30 mg, By Mouth, Daily, do not crush or chew, # 90 capsule, 2 Refills, Maintenance, 09/24/22 8:18:00 EST, CR Capsule, [facility], Partial fill upon patient request if [...] 6 Refills, Maintenance, 09/07/22 13:26:00 EST, Tablet, [facility] #[id number], Partial fill upon patient request if the prescription is for a schedule II opioid drug., 179, cm, 09/07/22 13:... Start Date: 09/07/22 Status: Ordered Insulin Lispro KwikPen 100 units/mL injectable solution See Instructions, Inject sq 10-20 units subcutaneously 3x a day before meals per sliding scale . E10.9, # 30 mL, 11 Refills, Maintenance, 10/16/21 13:21:00 EDT, [facility], Partial fill upon patient request if the prescription is for a... Start Date: 10/16/21 Status: Ordered Lantus Solostar Pen 100 units/mL subcutaneous solution See Instructions, Take 40 units once daily. E10.65, # 30 mL, 5 Refills, 04/29/22 13:52:00 EDT, [facility]., 179, cm, 12/27/21 10:24:00 EDT, Height, 79, kg, 12/27/21 10:24:00 EDT, Dry Weight Start Date: 04/29/22 Status: Ordered lidocaine 5% topical film 1 patch, Topically, Daily, # 30 patch, 11 Refills, Soft Stop, 09/17/21 13:44:00 EST, [facility] #[id number], 1 patch Topically Daily,x30 days, 178, cm, 09/17/21 13:34:00 EST, Height Start Date: 09/17/21 Stop Date: 09/12/22 Status: Ordered metFORMIN 500 mg oral tablet, extended release 1 tablet = 500 mg, By Mouth, Daily, # 30 tablet, 3 Refills, Maintenance, 09/07/22 13:28:00 EST, ER Tablet, [facility] #[id number], Partial fill upon patient request if the prescription is for a schedule II opioid drug., 179, cm, 09/07/22 13:09:00... Start Date: 09/07/22 Status: Ordered Pen [place], 31 G x 8 mm BD Ultra [...] Team Personnel Name: Cl Marie DO Position: [facility] Resident Member Role: PCP Address: Address: [address] [place] [address]- Care Team Related Persons Name: CLARITA BRAND Address: [address] [place] [address] Name: LISSY OG Address: home [address] [place] [address]
--- OUTSIDE RECORDS SUMMARY | 2023-06-27 19:55 | XMS_ITS | Continuity of Care Document ---
Author Name Unknown Organization [facility] Address [address] [place] [address]- Care Team Providers Care Electrical Designer Name Role Phone Cl Marie DO Primary Care Physician Encounter [facility] Date(s): 11/10/22 - 01/02/23 [facility] [address] [place], [place] [address] Attending Physician: Rip Hernandez MD Admitting [...] BLOOD GLUCOSE, # 200 Unknown, 3 Refills, [facility], 28, USE PRIOR TO [...] 1 Refills, Maintenance, 11/12/22 13:47:00 EDT, Tablet, [facility], Partial fill upon patient request if the prescription is for a schedule II opioid drug., 179, cm, 10/22/22 13:0... Start Date: 11/12/22 Status: Ordered Insulin Lispro KwikPen 100 units/mL injectable solution See Instructions, Inject sq 10-20 units subcutaneously 3x a day before meals per sliding scale . E10.9, # 30 mL, 2 Refills, Maintenance, 11/12/22 13:48:00 EDT, [facility]., Partial fill upon patient request if the prescription is for a... Start Date: 11/12/22 Status: Ordered Lantus Solostar Pen 100 units/mL subcutaneous solution See Instructions, Take 40 units once daily. E10.65, # 30 mL, 5 Refills, 04/29/22 13:52:00 EDT, [facility]., 179, cm, 12/27/21 10:24:00 EDT, Height, 79, kg, 12/27/21 10:24:00 EDT, Dry Weight Start Date: 04/29/22 Status: Ordered lidocaine 5% topical film 1 patch, Topically, Daily, # 30 patch, 11 Refills, Soft Stop, 09/17/21 13:44:00 EST, [facility] #[id number], 1 patch Topically Daily,x30 days, 178, cm, 09/17/21 13:34:00 EST, Height Start Date: 09/17/21 Stop Date: 09/12/22 Status: Ordered metFORMIN 500 mg oral tablet, extended release 1 tablet = 500 mg, By Mouth, Daily, # 30 tablet, 0 Refills, Maintenance, 11/12/22 13:48:00 EDT, ER Tablet, [facility], Partial fill upon patient request if the prescription is for a schedule II opioid drug., 179, cm, 10/22/22 13:00:00... Start Date: 11/12/22 Status: Ordered Pen [place], 31 G x 8 mm BD Ultra [...] S Resident Member Role: PCP Address: Address: [address] [place] [address]- Care Team Related Persons Name: CLARITA BRAND Address: [address] [place] [address] Name: LISSY OG Address: [address] [place] [address]
--- OUTSIDE RECORDS SUMMARY | 2023-06-27 19:55 | XMS_ITS | Continuity of Care Document ---
Author Name Unknown Organization [facility] Address [address] [place] [address]- Care Team Providers Care Hat Steamer Name Role Phone Keaganbryan Cl TOLEDO Primary Care Physician [phone] Encounter [facility] [place] Date(s): 12/14/22 - 01/13/23 [facility] [address] [place] [id number] Attending Physician: Corinna Estrella Admitting Physician: Admlauro, Corinna Referring Physician: tr, Ar8 Referring Physician: Leslie KAYE, Shoshana Wolfe Allergies, [...] 5 Refills, Maintenance, 01/07/23 17:16:00 EDT, Tablet, [facility] #[id number], Partial fill upon patient request if the prescription is for a schedule II opioid drug., 179, cm, 10/22/22 13:00:00 EDT... Start Date: 01/07/23 Status: Ordered BD Single Use Swab 70% topical pad See Instructions, USE PRIOR TO INJECTING INSULIN AND TESTING BLOOD GLUCOSE, # 200 Unknown, 3 Refills, [facility], 28, USE PRIOR TO INJECTING INSULIN [...] 1 Refills, Maintenance, 11/12/22 13:47:00 EDT, Tablet, [facility], Partial fill upon patient request if the prescription is for a schedule II opioid drug., 179, cm, 10/22/22 13:0... Start Date: 11/12/22 Status: Ordered Insulin Lispro KwikPen 100 units/mL injectable solution See Instructions, Inject sq 10-20 units subcutaneously 3x a day before meals per sliding scale . E10.9, # 30 mL, 2 Refills, Maintenance, 11/12/22 13:48:00 EDT, [facility], Partial fill upon patient request if the prescription is for a... Start Date: 11/12/22 Status: Ordered Lantus Solostar Pen 100 units/mL subcutaneous solution See Instructions, Take 40 units once daily. E10.65, # 30 mL, 5 Refills, 04/29/22 13:52:00 EDT, [facility]., 179, cm, 12/27/21 10:24:00 EDT, Height, 79, kg, 12/27/21 10:24:00 EDT, Dry Weight Start Date: 04/29/22 Status: Ordered lidocaine 5% topical film 1 patch, Topically, Daily, # 30 patch, 11 Refills, Soft Stop, 09/17/21 13:44:00 EST, [facility] #[id number], 1 patch Topically Daily,x30 days, 178, cm, 09/17/21 13:34:00 EST, Height Start Date: 09/17/21 Stop Date: 09/12/22 Status: Ordered metFORMIN 500 mg oral tablet, extended release 1 tablet = 500 mg, By Mouth, Daily, # 30 tablet, 0 Refills, Maintenance, 11/12/22 13:48:00 EDT, ER Tablet, [facility], Partial fill upon patient request if the prescription is for a schedule II opioid drug., 179, cm, 10/22/22 13:00:00... Start Date: 11/12/22 Status: Ordered Pen [place], 31 G x 8 mm BD Ultra [...] day sm oker entered on: 07/29/17 Sex Patient Care team information Care Team Personnel Name: Cl Marie DO Position: S Resident Member Role: PCP Address: Address: [address] [place] [address]- Care Team Related Persons Name: CLARITA BRAND Address: home [address] [place] [address] Name: LISSY OG Address: home [address] [place] [address]
--- OUTSIDE RECORDS SUMMARY | 2023-06-27 19:55 | XMS_ITS | Continuity of Care Document ---
Author Name Unknown Organization [facility] Address [address] [place] [address]- Care Team Providers Care Notch Machine Operator Name Role Phone Cl Marie DO Primary Care Physician Encounter [facility] Date(s): 09/29/21 - 10/29/21 [facility] [address] [place], [place] [address] Allergies, Adverse [...] Refills, Maintenance, 09/17/21 13:48:00 EST, CR Capsule, [facility] #[id number], Partial fill upon patient request if the [...] 09/17/21 13:40:00 EST, Route to Pharmacy Electronically, [facility] #[id number], Partial fill upon patient request if the prescription is for a... Start Date: 09/17/21 Stop Date: 09/01/24 Status: Ordered Insulin Lispro KwikPen 100 units/mL injectable solution See Instructions, Inject sq 10-20 units subcutaneously 3x a day before meals per sliding scale . E10.9, # 30 mL, 11 Refills, Maintenance, 03/17/22 13:21:00 EDT[facility], Partial fill upon patient request if the prescription is for a... Start Date: 10/16/21 Status: Ordered Lantus Solostar Pen 100 units/mL subcutaneous solution See Instructions, Take 40 units once daily. E10.65, # 30 mL, 5 Refills, 04/06/21 19:52:00 EDT, [facility] #[id number], 178, cm, 03/06/21 10:19:00 EDT, Height Start Date: 04/06/21 Status: Ordered lidocaine 5% topical film 1 patch, Topically, Daily, # 30 patch, 11 Refills, Soft Stop, 09/17/21 13:44:00 EST, [facility] #[id number], 1 patch Topically Daily,x30 days, 178, cm, 09/17/21 13:34:00 EST, Height Start Date: 09/17/21 Stop Date: 09/12/22 Status: Ordered Pen [place], 31 G x 8 mm BD Ultra [...]
--- OUTSIDE RECORDS SUMMARY | 2023-06-27 19:55 | XMS_ITS | Continuity of Care Document ---
Author Name Unknown Organization [facility] Address [address] [place] [address]- Care Team Providers Care Online Health And Fitness Coach Name Role Phone Cl Marie DO Primary Care Physician Encounter [facility] Date(s): 04/02/21 - 05/02/21 [facility] [address] [place] [address] Attending Physician: Corinna Estrella Admitting Physician: AdmtrCorinna Referring Physician: tr, ArGlen Referring Physician: Shoshana Nelson NP Allergies, Adverse [...] 0 Refills, Soft Stop, 03/06/21 15:59:00 EDT, Tablet,[facility] #[id number], Partial fill upon patient request if the prescription is for a schedule II opioid drug., 178, cm, 03/06/21 10:19:00 EDT, H... Start Date: 03/06/21 Status: Ordered FreeStyle 2 Marav Sensors FreeStyle 2 Marva Sensors, See Instructions, [...] 30 mL, 5 Refills, 04/06/21 19:53:00 EDT, [facility] #[id number], 178, cm, 03/06/21 10:19:00 EDT, Height Start Date: 04/06/21 Status: Ordered Lantus Solostar Pen 100 units/mL subcutaneous solution See Instructions, Take 40 units once daily. E10.65, # 30 mL, 5 Refills, 04/06/21 19:52:00 EDT, [facility] #[id number], 178, cm, 03/06/21 10:19:00 EDT, Height Start Date: 04/06/21 Status: Ordered lidocaine 5% topical film See Instructions, # 30 patch, Refills 2 Tot. Refills 2, APPLY 1 PATCH EXTERNALLY TO THE SKIN DAILY,[facility] #[id number] Start Date: 05/04/19 Status: Ordered lisinopril 2.5 mg oral tablet See Instructions, TAKE 1 TABLET BY MOUTH DAILY, # 30 tablet, Refills 3, Tot. Refills 3, Soft Stop, 03/06/21 12:10:00 EDT, Instructions Replace Required Details, Route to Pharmacy Electronically, [facility] #[id number], 178, cm, 03/06/21 10:19:00... Start Date: 03/06/21 Status: Ordered metFORMIN 500 mg oral tablet 1 tablet = 500 mg, By Mouth, 2 times a day, # 60 tablet, 3 Refills, Maintenance, 03/06/21 12:10:00 EDT, Tablet, [facility] #[id number], 178, cm, 03/06/21 10:19:00 EDT, Height Start [...]
--- OUTSIDE RECORDS SUMMARY | 2023-06-27 19:55 | XMS_ITS | Continuity of Care Document ---
Author Name Unknown Organization [facility] Address [address] [place] [address]- Care Team Providers Care Bingo Caller Name Role Phone Cl Marie DO Primary Care Physician [place] [facility] [place](s): 12/17/21 - 01/16/22 [facility] [address] [place], [place] [address] Allergies, Adverse Reactions, Alerts [...] Refills, Maintenance, 09/17/21 13:48:00 EST, CR Capsule, [facility] #[id number], Partial fill upon patient request if the [...] 09/17/21 13:40:00 EST, Route to Pharmacy Electronically, [facility] #[id number], Partial fill upon patient request if the prescription is for a... Start Date: 09/17/21 Stop Date: 09/01/24 Status: Ordered gabapentin 400 mg oral capsule 400 mg, 1, capsule, By Mouth, 4 times a day, # 360 capsule, Refills 3, Tot. Refills 3, Maintenance,12/18/21 16:21:00 EDT, Route to Pharmacy Electronically, [facility], Partial fill upon patient request if the prescription is for a kasandra... Start Date: 12/18/21 Status: Ordered Insulin Lispro KwikPen 100 units/mL injectable solution See Instructions, Inject sq 10-20 units subcutaneously 3x a day before meals per sliding scale . E10.9, # 30 mL, 11 Refills, Maintenance, 10/16/21 13:21:00 EDT, [facility], Partial fill upon patient request if the prescription is for a... Start Date: 10/16/21 Status: Ordered Lantus Solostar Pen 100 units/mL subcutaneous solution See Instructions, Take 40 units once daily. E10.65, # 30 mL, 5 Refills, 04/06/21 19:52:00 EDT, [facility] #[id number], 178, cm, 03/06/21 10:19:00 EDT, Height Start Date: 04/06/21 Status: Ordered lidocaine 5% topical film 1 patch, Topically, Daily, # 30 patch, 11 Refills, Soft Stop, 09/17/21 13:44:00 EST, [facility] #[id number], 1 patch Topically Daily,x30 days, 178, cm, 09/17/21 13:34:00 EST, Height Start Date: 09/17/21 Stop Date: 09/12/22 Status: Ordered Pen [place], 31 G x 8 mm BD Ultra [...]
--- OUTSIDE RECORDS SUMMARY | 2023-06-27 19:55 | XMS_ITS | Continuity of Care Document ---
Author Name Unknown Organization [facility] Address [address] [place] [address]- Care Team Providers Care Helicopter Technician Name Role Phone Gabino Marie DOpiter Primary Care Physician [phone] Encounter [facility] Date(s): 07/17/21 - 08/16/21 [facility] [address] [place], [place] [address] Allergies, Adverse Reactions, Alerts Substance Reaction Severity [...] 0 Refills, Soft Stop, 03/06/21 15:59:00 EDT, Tablet,[facility] #[id number], Partial fill upon patient request if the [...] 30 mL, 5 Refills, 04/06/21 19:53:00 EDT, [facility] #[id number], 178, cm, 03/06/21 10:19:00 EDT, Height Start Date: 04/06/21 Status: Ordered Lantus Solostar Pen 100 units/mL subcutaneous solution See Instructions, Take 40 units once daily. E10.65, # 30 mL, 5 Refills, 04/06/21 19:52:00 EDT, [facility] #[id number], 178, cm, 03/06/21 10:19:00 EDT, Height Start Date: 04/06/21 Status: Ordered lidocaine 5% topical film See Instructions, APPLY 1 PATCH EXTERNALLY TO THE SKIN DAILY, # 30 patch, 2 Refills, Soft Stop, 08/14/21 14:36:00 EST, [facility] #[id number], APPLY 1 PATCH EXTERNALLY TO THE SKIN DAILY, 178, cm, 08/14/21 13:48:00 EST, Height Start Date: 08/14/21 Status: Ordered lisinopril 2.5 mg oral tablet See Instructions, TAKE 1 TABLET BY MOUTH DAILY, # 30 tablet, Refills 3, Tot. Refills 3, Soft Stop, 03/06/21 12:10:00 EDT, Instructions Replace Required Details, Route to Pharmacy Electronically, [facility] #[id number], 178, cm, 03/06/21 10:19:00... Start Date: 03/06/21 Status: Ordered metFORMIN 500 mg oral tablet 1 tablet = 500 mg, By Mouth, 2 times a day, # 60 tablet, 3 Refills, Maintenance, 03/06/21 12:10:00 EDT, Tablet, [facility] #[id number], 178, cm, 03/06/21 10:19:00 EDT, Height Start [...] Refills, Maintenance, 06/11/21 9:13:00 EST, EC Capsule, [facility] #[id number], Partial fill upon patient request if the prescription is for a schedule II opioid drug., 178, cm, 06/10/21... Start Date: 06/11/21 Status: Ordered Pen [place], 31 G x 8 mm BD Ultra [...] Acute 08/21/21 14:35:00 EST, 08/14/21 14:35:00 EST, [facility] #[id number], Partial fill upon patient request if the prescription is for a schedule II opioid drug., 178, cm, 01... Start Date: 08/14/21 Stop Date: 08/21/21 Status: Ordered Tylenol 8 Hour 650 mg oral tablet, extended release 1 tablet = 650 mg, By Mouth, Every 8 hours, PRN as needed for pain, # 50 tablet, 1 Refills, Maintenance, 06/23/21 10:03:00 EST, ER Tablet, [facility] #[id number], Partial fill upon patient request if the prescription is for a schedule II opioid d... Start Date: 06/23/21 Status: Ordered Vitamin D3 1000 intl units oral tablet 1 tablet = 25 mcg, By Mouth, Daily, # 30 tablet, 2 Refills, Maintenance, 06/13/21 9:41:00 EST, Tablet, [facility] #[id number], Partial fill upon patient request if the [...]
--- OUTSIDE RECORDS SUMMARY | 2023-06-27 19:55 | XMS_ITS | Continuity of Care Document ---
Author Name Unknown Organization [facility] Address [address] [place], [place] [address]war[address], [address] [place] [address]- Care Team Providers Care Laboratory Administrative Director Name Role Phone Viktor Richards MD Primary Care Physician [phone] Encounter [facility] Date(s): 02/11/23 - 03/13/23 [facility] [address] [place] [address] Drive, [address] [place], [place] [address] Attending Physician: Admtr, Ar8 Admitting Physician: Admtr, [...] 5 Refills, Maintenance, 01/07/23 17:16:00 EDT, Tablet, [facility] #[id number], Partial fill upon patient request if the prescription is for a schedule II opioid drug., 179, cm, 10/22/22 13:00:00 EDT... Start Date: 01/07/23 Status: Ordered BD Single Use Swab 70% topical pad See Instructions, USE PRIOR TO INJECTING INSULIN AND TESTING BLOOD GLUCOSE, # 200 Unknown, 3 [facility]ills, [facility], 28, USE PRIOR TO INJECTING INSULIN [...] Refills, Maintenance, 11/12/22 13:47:00 EDT, Tablet, [facility], Partial fill upon patient request if the prescription is for a schedule II opioid drug., 179, cm, 10/22/22 13:0... Start Date: 11/12/22 Status: Ordered Insulin Lispro KwikPen 100 units/mL injectable solution See Instructions, Inject sq 10-20 units subcutaneously 3x a day before meals per sliding scale . E10.9, # 30 mL, 2 Refills, Maintenance, 11/12/22 13:48:00 EDT, [facility], Partial fill upon patient request if the prescription is for a... Start Date: 11/12/22 Status: Ordered Lantus Solostar Pen 100 units/mL subcutaneous solution See Instructions, Take 40 units once daily. E10.65, # 30 mL, 5 Refills, 04/29/22 13:52:00 EDT, [facility]., 179, cm, 12/27/21 10:24:00 EDT, Height, 79, kg, 12/27/21 10:24:00 EDT, Dry Weight Start Date: 04/29/22 Status: Ordered lidocaine 5% topical film 1 patch, Topically, Daily, # 30 patch, 11 Refills, Soft Stop, 09/17/21 13:44:00 EST, [facility] #[id number], 1 patch Topically Daily,x30 days, 178, cm, 09/17/21 13:34:00 EST, Height Start Date: 09/17/21 Stop Date: 09/12/22 Status: Ordered metFORMIN 500 mg oral tablet, extended release 1 tablet = 500 mg, By Mouth, Daily, # 30 tablet, 0 Refills, Maintenance, 11/12/22 13:48:00 EDT, ER Tablet, [facility], Partial fill upon patient request if the prescription is for a schedule II opioid drug., 179, cm, 10/22/22 13:00:00... Start Date: 11/12/22 Status: Ordered Pen [place], 31 G x 8 mm BD Ultra [...] S Resident Member Role: PCP Address: Address: [address] [place] [address]- Care Team Related Persons Name: CLARITA RBAND Address: home [address] [place] [address] Name: LISSY OG Address: home [address] [place] [address]
--- OUTSIDE RECORDS SUMMARY | 2023-06-27 19:55 | XMS_ITS | Continuity of Care Document ---
Author Name Unknown Organization [facility] Address [address] [place] [address] [address]aur[address], [address] [place] [address]- Care Team Providers Care Dry Roller Name Role Phone Cl Marie DO Primary Care Physician [phone] Encounter [facility] [place] Date(s): 01/07/23 - 01/14/23 [facility] [address] [place] [address] Drive, [address] [place], [place] [address] Attending Physician: Carmen Baptiste MD Referring Physician: Cl Marie DO Allergies, [...] 5 Refills, Maintenance, 01/07/23 17:16:00 EDT, Tablet, [facility] #[id number], Partial fill upon patient request if the prescription is for a schedule II opioid drug., 179, cm, 10/22/22 13:00:00 EDT... Start Date: 01/07/23 Status: Ordered BD Single Use Swab 70% topical pad See Instructions, USE PRIOR TO INJECTING INSULIN AND TESTING BLOOD GLUCOSE, # 200 Unknown, 3 Refills, [facility], 28, USE PRIOR TO INJECTING INSULIN AND [...] 1 Refills, Maintenance, 11/12/22 13:47:00 EDT, Tablet, [facility], Partial fill upon patient request if the prescription is for a schedule II opioid drug., 179, cm, 10/22/22 13:0... Start Date: 11/12/22 Status: Ordered Insulin Lispro KwikPen 100 units/mL injectable solution See Instructions, Inject sq 10-20 units subcutaneously 3x a day before meals per sliding scale . E10.9, # 30 mL, 2 Refills, Maintenance, 11/12/22 13:48:00 EDT, [facility] Partial fill upon patient request if the prescription is for a... Start Date: 11/12/22 Status: Ordered Lantus Solostar Pen 100 units/mL subcutaneous solution See Instructions, Take 40 units once daily. E10.65, # 30 mL, 5 Refills, 04/29/22 13:52:00 EDT, [facility] 179, cm, 12/27/21 10:24:00 EDT, Height, 79, kg, 12/27/21 10:24:00 EDT, Dry Weight Start Date: 04/29/22 Status: Ordered lidocaine 5% topical film 1 patch, Topically, Daily, # 30 patch, 11 Refills, Soft Stop, 09/17/21 13:44:00 EST, [facility] #[id number], 1 patch Topically Daily,x30 days, 178, cm, 09/17/21 13:34:00 EST, Height Start Date: 09/17/21 Stop Date: 09/12/22 Status: Ordered metFORMIN 500 mg oral tablet, extended release 1 tablet = 500 mg, By Mouth, Daily, # 30 tablet, 0 Refills, Maintenance, 11/12/22 13:48:00 EDT, ER Tablet, [facility], Partial fill upon patient request if the prescription is for a schedule II opioid drug., 179, cm, 10/22/22 13:00:00... Start Date: 11/12/22 Status: Ordered Pen [place], 31 G x 8 mm BD Ultra [...] S Resident Member Role: PCP Address: Address: [address] [place] [address]- Care Team Related Persons Name: CLARITA BRAND Address: [address] [place] [address] Name: LISSY OG Address: [address] [place] [address]
--- OUTSIDE RECORDS SUMMARY | 2023-06-27 19:55 | XMS_ITS | Continuity of Care Document ---
Author Name Unknown Organization [facility] Address [address] [place] [address]- Care Team Providers Care Decorative Greens Cutter Name Role Phone Keaganbryan Cl Primary Care Physician Encounter [facility] [place] Date(s): 06/19/21 - 07/31/21 [facility] [address] [place], [place] [address] Attending Physician: Barbie Petersen NP Admitting Physician: Barbie Petersen NP Allergies, Adverse Reactions, Alerts Substance Reaction [...] 0 Refills, Soft Stop, 03/06/21 15:59:00 EDT, Tablet,[facility] #[id number], Partial fill upon patient request if the [...] 30 mL, 5 Refills, 04/06/21 19:53:00 EDT, [facility] #[id number], 178, perri, 03/06/21 10:19:00 EDT, Height Start Date: 04/06/21 Status: Ordered Lantus Solostar Pen 100 units/mL subcutaneous solution See Instructions, Take 40 units once daily. E10.65, # 30 mL, 5 Refills, 04/06/21 19:52:00 EDT, [facility] #[id number], 178, cm, 03/06/21 10:19:00 EDT, Height Start Date: 04/06/21 Status: Ordered lidocaine 5% topical film See Instructions, # 30 patch, Refills 2 Tot. Refills 2, APPLY 1 PATCH EXTERNALLY TO THE SKIN DAILY,[facility] #[id number] Start Date: 05/04/19 Status: Ordered lisinopril 2.5 mg oral tablet See Instructions, TAKE 1 TABLET BY MOUTH DAILY, # 30 tablet, Refills 3, Tot. Refills 3, Soft Stop, 03/06/21 12:10:00 EDT, Instructions Replace Required Details, Route to Pharmacy Electronically, [facility] #[id number], 178, cm, 03/06/21 10:19:00... Start Date: 03/06/21 Status: Ordered metFORMIN 500 mg oral tablet 1 tablet = 500 mg, By Mouth, 2 times a day, # 60 tablet, 3 Refills, Maintenance, 03/06/21 12:10:00 EDT, Tablet, [facility] #[id number], 178, cm, 03/06/21 10:19:00 EDT, Height Start [...] Refills, Maintenance, 06/11/21 9:13:00 EST, EC Capsule, [facility] #[id number], Partial fill upon patient request if the prescription is for a schedule II opioid drug., 178, cm, 06/10/21... Start Date: 06/11/21 Status: Ordered Pen [place], 31 G x 8 mm BD Ultra Fine III See Instructions, # 120 each, Refills 11, Tot. Refills 11, Maintenance, use to inject insulin up tofour times daily. dx e11.9, 07/21/21 15:03:00 EST, Supply, 178, cm, 06/23/21 8:47:00 EST, Height Start Date: 07/21/21 Status: Ordered traMADol 50 mg oral tablet 1 tablet = 50 mg, By Mouth, Daily, PRN as needed for pain, for 14 days, # 14 tablet, 0 Refills, Acute 08/07/21 17:26:00 EST, 07/24/21 17:26:00 EST, Tablet, [facility] #[id number], Partial fill upon patient request if the prescription is for a kasandra... Start Date: 07/24/21 Stop Date: 08/07/21 Status: Ordered Tylenol 8 Hour 650 mg oral tablet, extended release 1 tablet = 650 mg, By Mouth, Every 8 hours, PRN as needed for pain, # 50 tablet, 1 Refills, Maintenance, 06/23/21 10:03:00 EST, ER Tablet, [facility] #[id number], Partial fill upon patient request if the prescription is for a schedule II opioid d... Start Date: 06/23/21 Status: Ordered Vitamin D3 1000 intl units oral tablet 1 tablet = 25 mcg, By Mouth, Daily, # 30 tablet, 2 Refills, Maintenance, 06/13/21 9:41:00 EST, Tablet, [facility] #[id number], Partial fill upon patient request if the [...]
--- OUTSIDE RECORDS SUMMARY | 2023-06-27 19:55 | XMS_ITS | Continuity of Care Document ---
Author Name Unknown Organization [facility] Address [address] [place] [address]- Care Team Providers Care Senior Payroll Manager Name Role Phone Cl Marie DO Primary Care Physician [phone] Encounter [facility] [place] Date(s): 04/21/21 - 05/31/21 [facility] [address] [place], [place] [address] Attending Physician: Rip Hernandez [...] 0 Refills, Soft Stop, 03/06/21 15:59:00 EDT, Tablet,[facility] #[id number], Partial fill upon patient request if the [...] 30 mL, 5 Refills, 04/06/21 19:53:00 EDT, [facility] #[id number], 178, cm, 03/06/21 10:19:00 EDT, Height Start Date: 04/06/21 Status: Ordered Lantus Solostar Pen 100 units/mL subcutaneous solution See Instructions, Take 40 units once daily. E10.65, # 30 mL, 5 Refills, 04/06/21 19:52:00 EDT, [facility] #[id number], 178, cm, 03/06/21 10:19:00 EDT, Height Start Date: 04/06/21 Status: Ordered lidocaine 5% topical film See Instructions, # 30 patch, Refills 2 Tot. Refills 2, APPLY 1 PATCH EXTERNALLY TO THE SKIN DAILY,[facility] #[id number] Start Date: 05/04/19 Status: Ordered lisinopril 2.5 mg oral tablet See Instructions, TAKE 1 TABLET BY MOUTH DAILY, # 30 tablet, Refills 3, Tot. Refills 3, Soft Stop, 03/06/21 12:10:00 EDT, Instructions Replace Required Details, Route to Pharmacy Electronically, [facility] #[id number], 178, cm, 03/06/21 10:19:00... Start Date: 03/06/21 Status: Ordered metFORMIN 500 mg oral tablet 1 tablet = 500 mg, By Mouth, 2 times a day, # 60 tablet, 3 Refills, Maintenance, 03/06/21 12:10:00 EDT, Tablet, [facility] #[id number], 178, cm, 03/06/21 10:19:00 EDT, Height Start [...]
--- OUTSIDE RECORDS SUMMARY | 2023-06-27 19:55 | XMS_ITS | Continuity of Care Document ---
Author Name Unknown Organization [facility] Address [address] [place] [address]- Care Team Providers Care Estimator Name Role Phone Maurice MAST, Viktor Primary Care Physician [phone] Encounter [facility] Date(s): 04/21/23 - 05/21/23 [facility] [address], [place] [address] [place] Allergies, Adverse Reactions, Alerts Substance Reaction Severity [...] 5 Refills, Maintenance, 04/16/23 13:51:00 EDT, [facility] upon patient request if the prescription is for a schedule II opioid drug., 179, cm, 10/22/22 13:00:00 EDT,... Start Date: 04/16/23 Status: Ordered BD Single Use Swab 70% topical pad See Instructions, USE PRIOR TO INJECTING INSULIN AND TESTING BLOOD GLUCOSE, # 200 Unknown, 3 [facility]ills, [facility], 28, USE PRIOR TO INJECTING INSULIN AND TESTING BLOOD GLUCOSE, 179, cm, 12/27/21 10:24:00 EDT, Height, 79, kg, 12/27/21 10:24:00... Start Date: 02/17/22 Status: Ordered duloxetine 30 mg oral enteric coated capsule 1 capsule, By Mouth, Daily, DO NOT CHEW OR CRUSH., # 90 capsule, 0 Refills, Maintenance, 03/24/23 15:47:00 EDT, [facility], 179, cm, 10/22/22 13:00:00 EDT, Height, [...] 1 Refills, Maintenance, 11/12/22 13:47:00 EDT, Tablet, [facility] Partial fill upon patient request if the prescription is for a schedule II opioid drug., 179, cm, 10/22/22 13:0... Start Date: 11/12/22 Status: Ordered Insulin Lispro KwikPen 100 units/mL injectable solution See Instructions, INJECT SUBCUTANEOUSLY 10-20 UNITS SUBCUTANEOUSLY 3 TIMES A DAY BEFORE MEALS PER SLIDING SCALE, # 15 mL, 4 Refills, Maintenance, 03/24/23 15:47:00 EDT, [facility], 179, cm,10/22/22 13:00:00 EDT, Height, 79, kg, 12/27/21 10:... Start Date: 03/24/23 Status: Ordered Lantus Solostar Pen 100 units/mL subcutaneous solution See Instructions, Take 40 units once daily. E10.65, # 30 mL, 5 Refills, 04/29/22 13:52:00 EDT, [facility] 179, cm, 12/27/21 10:24:00 EDT, Height, 79, kg, 12/27/21 10:24:00 EDT, Dry Weight Start Date: 04/29/22 Status: Ordered lidocaine 5% topical film 1 patch, Topically, Daily, # 30 patch, 11 Refills, Soft Stop, 09/17/21 13:44:00 EST, [facility] #[id number], 1 patch Topically Daily,x30 days, 178, cm, 09/17/21 13:34:00 EST, Height Start Date: 09/17/21 Stop Date: 09/12/22 Status: Ordered MetFORMIN (Eqv-Glucophage XR) 500 mg oral tablet, extended release 1 tablet, By Mouth, Daily, # 90 tablet, 0 Refills, Maintenance, 03/24/23 15:47:00 EDT, [facility], 179, cm, 10/22/22 13:00:00 EDT, Height, 79, kg, 12/27/21 10:24:00 EDT, Dry Weight Start Date: 03/24/23 Status: Ordered Pen [place], 31 G x 8 mm BD Ultra [...] 0 Refills, Maintenance, 04/29/23 9:29:00 EDT, Tablet, [facility] #[id number], Partial fill upon patient request if th... [...] S Resident Member Role: PCP Address: Address: [address] [place] [id number]- Care Team Related Persons Name: CLARITA BRAND Address: home [address] [place] [address] Name: LISSY OG Address: home [address] [place] [address]
--- OUTSIDE RECORDS SUMMARY | 2023-06-27 19:55 | XMS_ITS | Continuity of Care Document ---
Author Name Unknown Organization [facility] Address [address] [place] [address]- Care Team Providers Care Venetian Blind Machine Operator Name Role Phone Cl Marie DO Primary Care Physician Encounter [facility] Date(s): 06/10/20 - 07/10/20 [facility] [address], [place] [address] Attending Physician: AdmCorinna restrepo Admitting Physician: [...] mL, 5 Refills, Maintenance, 10/25/19 12:37:00 EDT, [facility] #[id number], 178, cm, 10/16/19 14:26:00 EDT, Height Start Date: 10/25/19 Status: Ordered Alcohol Wipes See Instructions, # 100 each, Refills 11, Tot. Refills 11, Maintenance, Check glucose three times aday, 08/30/19 9:12:00 EST, Compound, 178, cm, 08/14/19 14:54:00 EST, Height Start Date: 08/30/19 Status: Ordered Freestyle Marva 14-day [place] Freestyle Marva 14-day [place], See Instructions, # 1 each, Refills 0, [...] 30 mL, 5 Refills, 10/25/19 12:35:00 EDT, [facility] #[id number], 178, cm, 10/16/19 14:26:00 EDT, Height Start Date: 10/25/19 Status: Ordered lidocaine 5% topical film See Instructions, # 30 patch, Refills 2 Tot. Refills 2, APPLY 1 PATCH EXTERNALLY TO THE SKIN DAILY,[facility] #[id number] Start Date: 05/04/19 Status: Ordered lisinopril 2.5 mg oral tablet See Instructions, TAKE 1 TABLET BY MOUTH DAILY, # 30 tablet, Refills 3, Tot. Refills 3, Soft Stop, 09/05/19 17:10:00 EST, Instructions Replace Required Details, Route to Pharmacy Electronically, [facility] #[id number], 178, cm, 08/14/19 14:54:00... Start Date: 09/05/19 Status: Ordered metFORMIN 500 mg oral tablet 1 tablet = 500 mg, By Mouth, 2 times a day, # 60 tablet, 3 Refills, Maintenance, 09/05/19 17:10:00 EST, Tablet, [facility] #[id number], 178, cm, 08/14/19 14:54:00 EST, Height Start Date: 09/05/19 Status: Ordered methyl salicylate topical - lotion 1 application, Topically, 3 times a day, PRN as needed for pain, # 120 Gm, 0 Refills, Maintenance, 12/29/18 15:32:43 EDT, Lotion, 1 application Topically 3 times a day,PRN:as needed for pain Start Date: 12/29/18 Status: Ordered Pen [place], 31 G x 5 mm BD Ultra Fine III See Instructions, # 100 each, Refills 5, Tot. Refills 5, Maintenance, use to inject insulin up to four times daily dx e11.9, 09/05/19 17:09:00 EST, Compound, 178, cm, 08/14/19 14:54:00 EST, Height Start Date: 09/05/19 Stop Date: 03/03/20 Status: Ordered Vitamin D 00771 iu oral capsule 50,000 International_Units, 1, capsule, By Mouth, Every week, # 4 capsule, Refills 2, Tot. Refills 2, Maintenance, 03/01/20 14:21:00 EDT, Route to Pharmacy Electronically, [facility] #[id number], 178, cm, 10/16/19 14:26:00 EDT, Height Start [...]
--- OUTSIDE RECORDS SUMMARY | 2023-06-27 19:55 | XMS_ITS | Continuity of Care Document ---
Author Name Unknown Organization [facility] Address [address] [place] [address]- Care Team Providers Care Tankroom Tender Name Role Phone Keaganbryan Cl TOLEDO Primary Care Physician [facility]counter [facility] Date(s): 03/16/22 - 05/09/22 [facility] [address], [place] [address] Attending Physician: Rip Hernandez MD Admitting Physician: [...] BLOOD GLUCOSE, # 200 Unknown, 3 Refills, [facility], 28, USE PRIOR TO INJECTING INSULIN AND TESTING BLOOD GLUCOSE, 179, cm, 12/27/21 10:24:00 EDT, Height, 79, kg, 12/27/21 10:24:00... Start Date: 02/17/22 Status: Ordered duloxetine 30 mg oral enteric coated capsule 1 capsule = 30 mg, By Mouth, Daily, do not crush or chew, # 90 capsule, 11 Refills, Maintenance, 09/17/21 13:48:00 EST, CR Capsule, [facility] #[id number], Partial fill upon patient request if the [...] Maintenance,03/25/22 9:15:00 EDT, Route to Pharmacy Electronically, [facility], Partial fill upon patient request if the prescription is for a sche... Start Date: 03/25/22 Stop Date: 06/23/22 Status: Ordered Insulin Lispro KwikPen 100 units/mL injectable solution See Instructions, Inject sq 10-20 units subcutaneously 3x a day before meals per sliding scale . E10.9, # 30 mL, 11 Refills, Maintenance, 10/16/21 13:21:00 EDT, [facility], Partial fill upon patient request if the prescription is for a... Start Date: 10/16/21 Status: Ordered Lantus Solostar Pen 100 units/mL subcutaneous solution See Instructions, Take 40 units once daily. E10.65, # 30 mL, 5 Refills, 04/29/22 13:52:00 EDT, [facility], 179, cm, 12/27/21 10:24:00 EDT, Height, 79, kg, 12/27/21 10:24:00 EDT, Dry Weight Start Date: 04/29/22 Status: Ordered lidocaine 5% topical film 1 patch, Topically, Daily, # 30 patch, 11 Refills, Soft Stop, 09/17/21 13:44:00 EST, [facility] #[id number], 1 patch Topically Daily,x30 days, 178, cm, 09/17/21 13:34:00 EST, Height Start Date: 09/17/21 Stop Date: 09/12/22 Status: Ordered Pen [place], 31 G x 8 mm BD Ultra [...] Personnel Name: Cl Marie DO Address: Address: [address] [place] [address] [place], [place] [address]
--- OUTSIDE RECORDS SUMMARY | 2023-06-27 19:55 | XMS_ITS | Continuity of Care Document ---
Author Name Unknown Organization [facility] Address [address] [place] [address]- Care Team Providers Care White Sugar Supervisor Name Role Phone Cl Marie DO Primary Care Physician Encounter [facility] Date(s): 01/22/22 - 02/21/22 [facility] [address], [place] [address] Allergies, Adverse Reactions, Alerts Substance [...] # 200 Unknown, 3 Refills, [facility], 28, USE PRIOR TO INJECTING INSULIN AND TESTING BLOOD GLUCOSE, 179, cm, 12/27/21 10:24:00 EDT, Height, 79, kg, 12/27/21 10:24:00... Start Date: 02/17/22 Status: Ordered duloxetine 30 mg oral enteric coated capsule 1 capsule = 30 mg, By Mouth, Daily, do not crush or chew, # 90 capsule, 11 Refills, Maintenance, 09/17/21 13:48:00 EST, CR Capsule, [facility] #[id number], Partial fill upon patient request if the [...] 09/17/21 13:40:00 EST, Route to Pharmacy Electronically, [facility] #[id number], Partial fill upon patient request if the prescription is for a... Start Date: 09/17/21 Stop Date: 09/01/24 Status: Ordered gabapentin 400 mg oral capsule 400 mg, 1, capsule, By Mouth, 4 times a day, # 360 capsule, Refills 3, Tot. Refills 3, Maintenance,12/18/21 16:21:00 EDT, Route to Pharmacy Electronically, [facility], Partial fill upon patient request if the prescription is for a kasandra... Start Date: 12/18/21 Status: Ordered Insulin Lispro KwikPen 100 units/mL injectable solution See Instructions, Inject sq 10-20 units subcutaneously 3x a day before meals per sliding scale . E10.9, # 30 mL, 11 Refills, Maintenance, 10/16/21 13:21:00 EDT, [facility], Partial fill upon patient request if the prescription is for a... Start Date: 10/16/21 Status: Ordered Lantus Solostar Pen 100 units/mL subcutaneous solution See Instructions, Take 40 units once daily. E10.65, # 30 mL, 5 Refills, 04/06/21 19:52:00 EDT, [facility] #[id number], 178, cm, 03/06/21 10:19:00 EDT, Height Start Date: 04/06/21 Status: Ordered lidocaine 5% topical film 1 patch, Topically, Daily, # 30 patch, 11 Refills, Soft Stop, 09/17/21 13:44:00 EST, [facility] #[id number], 1 patch Topically Daily,x30 days, 178, cm, 09/17/21 13:34:00 EST, Height Start Date: 09/17/21 Stop Date: 09/12/22 Status: Ordered Pen [place], 31 G x 8 mm BD Ultra [...]
--- OUTSIDE RECORDS SUMMARY | 2023-06-27 19:55 | XMS_ITS | Continuity of Care Document ---
Author Name Unknown Organization [facility] Address [address] [place] [address]- Care Team Providers Care Foam Charger Name Role Phone Cl Marie DO Primary Care Physician Encounter [facility] Date(s): 04/21/21 - 05/21/21 [facility] [address], [place] [address] Allergies, Adverse Reactions, Alerts [...] 0 Refills, Soft Stop, 03/06/21 15:59:00 EDT, Tablet,[facility] #[id number], Partial fill upon patient request if the [...] 30 mL, 5 Refills, 04/06/21 19:53:00 EDT, [facility] #[id number], 178, cm, 03/06/21 10:19:00 EDT, Height Start Date: 04/06/21 Status: Ordered Lantus Solostar Pen 100 units/mL subcutaneous solution See Instructions, Take 40 units once daily. E10.65, # 30 mL, 5 Refills, 04/06/21 19:52:00 EDT, [facility] #[id number], 178, cm, 03/06/21 10:19:00 EDT, Height Start Date: 04/06/21 Status: Ordered lidocaine 5% topical film See Instructions, # 30 patch, Refills 2 Tot. Refills 2, APPLY 1 PATCH EXTERNALLY TO THE SKIN DAILY,[facility] #[id number] Start Date: 05/04/19 Status: Ordered lisinopril 2.5 mg oral tablet See Instructions, TAKE 1 TABLET BY MOUTH DAILY, # 30 tablet, Refills 3, Tot. Refills 3, Soft Stop, 03/06/21 12:10:00 EDT, Instructions Replace Required Details, Route to Pharmacy Electronically, [facility] #[id number], 178, cm, 03/06/21 10:19:00... Start Date: 03/06/21 Status: Ordered metFORMIN 500 mg oral tablet 1 tablet = 500 mg, By Mouth, 2 times a day, # 60 tablet, 3 Refills, Maintenance, 03/06/21 12:10:00 EDT, Tablet, [facility] #[id number], 178, cm, 03/06/21 10:19:00 EDT, Height Start [...]
--- OUTSIDE RECORDS SUMMARY | 2023-06-27 19:55 | XMS_ITS | Continuity of Care Document ---
Author Name Unknown Organization [facility] Address [address] [place] [address]- Care Team Providers Care Die Mounter Name Role Phone Sydney Zheng DO Primary Care Physici an [place] [facility] Date[place]s): 09/06/19 - 01/04/20 [facility] [address] [place] [address] [facility] Attending Physician: Bassam Flaherty MD Admitting Physician: [...] mL, 5 Refills, Maintenance, 10/25/19 12:37:00 EDT, [facility] #[id number], 178, cm, 10/16/19 14:26:00 EDT, Height Start Date: 10/25/19 Status: Ordered Alcohol Wipes See Instructions, # 100 each, Refills 11, Tot. Refills 11, Maintenance, Check glucose three times aday, 08/30/19 9:12:00 EST, Compound, 178, cm, 08/14/19 14:54:00 EST, Height Start Date: 08/30/19 Status: Ordered Freestyle Marva 14-day [place] Freestyle Marva 14-day [place], See Instructions, # 1 each, Refills 0, [...] 30 mL, 5 Refills, 10/25/19 12:35:00 EDT, [facility] #[id number], 178, cm, 10/16/19 14:26:00 EDT, Height Start Date: 10/25/19 Status: Ordered lidocaine 5% topical film See Instructions, # 30 patch, Refills 2 Tot. Refills 2, APPLY 1 PATCH EXTERNALLY TO THE SKIN DAILY,[facility] #02756 Start Date: 05/04/19 Status: Ordered lisinopril 2.5 mg oral tablet See Instructions, TAKE 1 TABLET BY MOUTH DAILY, # 30 tablet, Refills 3, Tot. Refills 3, Soft Stop, 09/05/19 17:10:00 EST, Instructions Replace Required Details, Route to Pharmacy Electronically, [facility] #[id number], 178, cm, 08/14/19 14:54:00... Start Date: 09/05/19 Status: Ordered metFORMIN 500 mg oral tablet 1 tablet = 500 mg, By Mouth, 2 times a day, # 60 tablet, 3 Refills, Maintenance, 09/05/19 17:10:00 EST, Tablet, [facility] #[id number], 178, cm, 08/14/19 14:54:00 EST, Height Start Date: 09/05/19 Status: Ordered methyl salicylate topical - lotion 1 application, Topically, 3 times a day, PRN as needed for pain, # 120 Gm, 0 Refills, Maintenance, 12/29/18 15:32:43 EDT, Lotion, 1 application Topically 3 times a day,PRN:as needed for pain Start Date: 12/29/18 Status: Ordered Pen [place], 31 G x 5 mm BD Ultra Fine III See Instructions, # 100 each, Refills 5, Tot. Refills 5, Maintenance, use to inject insulin up to four times daily dx e11.9, 09/05/19 17:09:00 EST, Compound, 178, cm, 08/14/19 14:54:00 EST, Height Start Date: 09/05/19 Stop Date: 03/03/20 Status: Ordered Vitamin D 95399 iu oral capsule 50,000 International_Units, 1, capsule, By Mouth, Every week, # 4 capsule, Refills 0, Tot. Refills 0, Maintenance, 10/20/18 15:52:35 EDT, Route to Pharmacy Electronically, [id number][facility] Start Date: 10/20/18 Status: Ordered Problem List Condition Effective Dates Status Health Status Inform ant Balanitis(Confirmed) Active Chronic low back pain(Confirmed) Active Compression fracture of lumb ar vertebra(Confirmed) Active Thrombocytopenia(Confirmed) Active Vitamin D deficiency(Confirmed) Active Social History Social History Type Response Smoking Status Current every day margarito hoffman entered on: 07/29/17 Sex
--- OUTSIDE RECORDS SUMMARY | 2023-06-27 19:55 | XMS_ITS | Continuity of Care Document ---
Author Name Unknown Organization [facility] Address [address] [place] [address]- Care Team Providers Care Extension Service Specialist Name Role Phone Keaganbryan TOLEDO Cl Primary Care Physician [phone] Encounter [facility] Date(s): 07/11/21 - 09/05/21 [facility] [address] [place], [place] [address] Attending Physician: Zoe Brambila MD Admitting Physician: Zoe Brambila MD Allergies, Adverse Reactions, Alerts Substance Reaction [...] 0 Refills, Soft Stop, 03/06/21 15:59:00 EDT, Tablet,[facility] #[id number], Partial fill upon patient request if the [...] 30 mL, 5 Refills, 04/06/21 19:53:00 EDT, [facility] #[id number], 178, cm, 03/06/21 10:19:00 EDT, Height Start Date: 04/06/21 Status: Ordered Lantus Solostar Pen 100 units/mL subcutaneous solution See Instructions, Take 40 units once daily. E10.65, # 30 mL, 5 Refills, 04/06/21 19:52:00 EDT, [facility] #[id number], 178, cm, 03/06/21 10:19:00 EDT, Height Start Date: 04/06/21 Status: Ordered lidocaine 5% topical film See Instructions, APPLY 1 PATCH EXTERNALLY TO THE SKIN DAILY, # 30 patch, 2 Refills, Soft Stop, 08/14/21 14:36:00 EST, [facility] #[id number], APPLY 1 PATCH EXTERNALLY TO THE SKIN DAILY, 178, cm, 08/14/21 13:48:00 EST, Height Start Date: 08/14/21 Status: Ordered lisinopril 2.5 mg oral tablet See Instructions, TAKE 1 TABLET BY MOUTH DAILY, # 30 tablet, Refills 3, Tot. Refills 3, Soft Stop, 03/06/21 12:10:00 EDT, Instructions Replace Required Details, Route to Pharmacy Electronically, [facility] #[id number], 178, cm, 03/06/21 10:19:00... Start Date: 03/06/21 Status: Ordered metFORMIN 500 mg oral tablet 1 tablet = 500 mg, By Mouth, 2 times a day, # 60 tablet, 3 Refills, Maintenance, 03/06/21 12:10:00 EDT, Tablet, [facility] #[id number], 178, cm, 03/06/21 10:19:00 EDT, Height Start [...] Refills, Maintenance, 06/11/21 9:13:00 EST, EC Capsule, [facility] #[id number], Partial fill upon patient request if the prescription is for a schedule II opioid drug., 178, perri, 06/10/21... Start Date: 06/11/21 Status: Ordered Pen [place], 31 G x 8 mm BD Ultra Fine III See Instructions, # 120 each, Refills 11, Tot. Refills 11, Maintenance, use to inject insulin up tofour times daily. dx e11.9, 07/21/21 15:03:00 EST, [facility], 178, perri, 06/23/21 8:47:00 EST, Height Start Date: 07/21/21 Status: Ordered Tylenol 8 Hour 650 mg oral tablet, extended release 1 tablet = 650 mg, By Mouth, Every 8 hours, PRN as needed for pain, # 50 tablet, 1 Refills, Maintenance, 06/23/21 10:03:00 EST, ER Tablet, [facility] #[id number], Partial fill upon patient request if the prescription is for a schedule II opioid d... Start Date: 06/23/21 Status: Ordered Vitamin D3 1000 intl units oral tablet 1 tablet = 25 mcg, By Mouth, Daily, # 30 tablet, 2 Refills, Maintenance, 06/13/21 9:41:00 EST, Tablet, [facility] #[id number], Partial fill upon patient request if the [...]
--- NOTE | 2023-06-27 19:57 | PC.NURSE ---
a&ox3, vss and up to date. pt comes in today d/t increase in right shoulder pain. pt injured right shoulder in work-related incident 3-4 weeks ago. pt states he was moving heavy materials when he lifted/strained his right shoulder. pt states being out of work since wednesday. pt also verbalizing numbness/tingling in his hand. pt had xray done at [facility] a few days ago displaying no trauma - states he has not done anything to affect arm since. partner bedside.
== END 2023-06-27 20:14 | disposition home or self-care (01) ==
PROVIDERS: Emergency Provider Internal Medicine
DX: S49.91XA Unspecified injury of right shoulder and upper arm, initial encounter (principal); M25.511 Pain in right shoulder; M62.838 Other muscle spasm; X50.0XXA Overexertion from strenuous movement or load, initial encounter; Y93.9 Activity, unspecified; Y92.69 Other specified industrial and construction area as the place of occurrence of the external cause; Y99.0 Civilian activity done for income or pay; Z79.899 Other long term (current) drug therapy
CPT/HCPCS: 93005; 96372; 99284; J1885

== ENCOUNTER 2023-10-20 14:36 | Emergency (ER) | payer MEDICAID, SELFPAY ==
[2023-10-20 15:29] VITALS: BP 140/77; PULSE 98; RESP 20; TEMP 37.1; O2SAT 94; BMI 27.3
--- NOTE | 2023-10-20 15:41 | ED_ITS ---
HPI - Skin/Abscess/Foreign Bdy General Chief complaint: Skin/Abscess/Foreign Body Stated complaint: Cyst on buttocks Time Seen by Provider: 10/20/23 17:23 Source: patient Mode of arrival: ambulatory History of Present Illness HPI narrative: 48-year-old male who presents with recurrent abscess formation right buttock without fevers or chills Related Data Previous Rx's Medication Instructions Recorded acetaminophen 500 mg tablet 500 mg PO Q6H PRN fever or pain 06/27/23 (Tylenol Extra Strength) #14 tabs cyclobenzaprine 5 mg tablet 5 mg PO Q8H PRN pain (scale score 06/27/23 7-10) 5 days #14 tabs lidocaine 5 % topical patch 1 patch topical DAILY PRN pain #30 06/27/23 (Lidoderm) ea Allergies Allergy/AdvReac Type Severity Reaction Status Date / Time amoxicillin Allergy Unknown Verified 10/20/23 15:34 Penicillins Allergy Unknown Verified 10/20/23 15:34 Review of Systems 2 Review of Systems: Pertinent positives and negatives as stated in HPI [facility] Past Medical History Source: nursing notes reviewed Social History Social History Advance Directives: No Advance Directives Information Provided: No Physical Exam 2 Vital Signs: Vital Signs: Last Vital Signs Temp 97.7 F 10/20/23 20:15 Pulse 100 10/20/23 20:15 Resp 18 10/20/23 20:15 BP 130/89 10/20/23 20:15 Pulse Ox 99 10/20/23 20:15 O2 Del Method Room Air 10/20/23 20:15 BMI result Body Mass Index 27.3 VITAL SIGNS: Reviewed. GENERAL: Well developed, well nourished, in no acute distress. HEAD: Normocephalic/atraumatic EYES: PERRLA, EOMI LUNGS: Normal breath sounds. No adventitious sounds or accessory muscle use. SpO2<99> CARDIOVASCULAR: Regular rate and rhythm without noted murmurs ABDOMEN: Soft, non-tender, non-distended with bowel sounds. BUTTOCK: [brick paver- Nadine, there is an approximate 4.5 cm indurated/erythematous area with central fluctuance that is just within the gluteal cleft on the right buttock MUSCULOSKELETAL: No tenderness, deformities, or effusions noted on gross inspection. EXTREMITIES: No cyanosis, clubbing or edema. SKIN: Inspection of the skin reveals no rashes NEUROLOGIC: Alert and oriented x 4. Strength and sensation to light touch were grossly intact x 4. Course Course Course Narrative: This is an RME: Additional HPI, ROS, PE not included below will be deferred to primary provider. This is a 48-year-old male presenting to the emergency department with complaints of cyst on right buttocks for the last month. He went to [facility] 1 month ago where they attempted to drain it, he finishes antibiotics however symptoms have worsened. Increased redness, swelling, pain. Unable to visualize area in triage due to limited privacy. Plan: Labs, further ER evaluation needed. Medications Administered Discontinued Medications Generic Name Dose Route Start Last Admin Trade Name [place] PRN Reason Stop Dose Admin Acetaminophen 975 mg 10/20/23 20:09 10/20/23 20:13 Acetaminophen 325 Mg Tablet PO 10/20/23 20:10 975 mg ONCE ONE Administration Ibuprofen 400 mg 10/20/23 20:09 10/20/23 20:12 Ibuprofen 400 Mg Tablet PO 10/20/23 20:10 400 mg ONCE ONE Administration Lidocaine HCl 1 appl 10/20/23 18:20 10/20/23 18:36 Lidocaine 4 % Cream Kit TOPICAL 10/20/23 18:21 1 appl ONCE ONE Administration Protocol Oxycodone HCl 5 mg 10/20/23 20:09 10/20/23 20:12 Oxycodone Hcl Immed Release 5 Mg Tablet PO 10/20/23 20:10 5 mg ONCE ONE Administration Medical Decision Making Medical Decision Making [facility] Narrative: 48-year-old male with history and clinical presentation of buttock abscess which was successfully anesthetized and drained and copiously irrigated, patient otherwise discharged after receiving combination analgesics and 1 dose of opioid. Review of all investigations demonstrates hematologic indices that do not show a leukocytosis or left shift and no anemia but there is noted thrombocytopenia. Chemistry indices not significant for JF/electrolytes/liver enzyme derangements. Patient is noted to be hyperglycemic. Differential Diagnosis Differential Diagnoses: The differential diagnosis associated with the presentation includes Please see the discussion above Admission/Observation Consideration of admission/observation: Escalation of care including admission/observation considered Please see the discussion above Lab Data [facility] Lab Attestation statement: I reviewed the patient's lab results. Please see the discussion above 03/20/24 15:47 10/20/23 15:47 Labs: Lab Results 10/20/23 Range/Units 15:47 WBC 9.3 (4.8-10.8) X10*3/uL RBC 5.79 (4.60-5.80) X10*6/uL Hgb 17.9 (14.0-18.0) g/dl Hct 50.6 (42.0-52.0) % MCV 87.4 (80.0-98.0) fL MCH 30.9 (27.0-33.0) pg MCHC 35.4 (31.0-36.0) g/dl RDW 13.2 (11.0-16.0) % Plt Count 89 L (160-400) X10*3/uL MPV 13.8 H (9.4-12.4) fL Immature Gran % (Auto) 0.5 H (0.0-0.4) % Neut % (Auto) 65.6 (45-73) % Lymph % (Auto) 24.4 (20-40) % [place] % (Auto) 5.8 (2-11) % Eos % (Auto) 3.1 (0-4) % Baso % (Auto) 0.6 (0-2) % Lymph # (Auto) 2.3 (1.2-4.9) X10*3/uL [place] # (Auto) 0.5 (0.1-1.2) X10*3/uL Eos # (Auto) 0.3 (0.0-0.4) X10*3/uL Baso # (Auto) 0.1 (0.0-0.2) X10*3/uL Abs Immat Gran (auto) 0.05 H (0.00-0.03) X10*3/uL Absolute Neuts (auto) 6.1 (2.0-8.3) x10*3/uL Absolute Nucleated RBC 0.000 (0.0-0.012) X10*3/uL Nucleated RBC % (auto) 0.0 (0.0-0.2) /100WBC Sodium 140 (135-145) mmol/L Potassium 4.4 (3.3-5.1) mmol/L Chloride 107 (96-108) mmol/L Carbon Dioxide 25 (22-29) mmol/L Anion Gap 12 (12-20) BUN 9 (9-16) mg/dL Creatinine 1.18 (0.5-1.4) mg/dL Estim Creat Clear Calc 79.9 Estimated GFR > 60 Random Glucose 332 H (60-115) mg/dL Calcium 9.8 (8.4-10.2) mg/dL Total Bilirubin 0.5 (0.0-1.0) mg/dL Direct Bilirubin 0.1 (0.0-0.5) mg/dL AST 15 (5-37) U/L ALT 18 (0-40) U/L Alkaline Phosphatase 105 (39-117) U/L Total Protein 7.8 (6.5-8.0) g/dL Albumin 4.5 (3.5-5.0) g/dL Procedures Abscess I/D Site: other Side (if applicable): right Local Anesthetic: lidocaine 1% Amount of anesthesia used (mL): 6 Technique: incised with blade Amount of fluid expressed (mL): 30 Sent for culture/gram staining?: No Irrigation: Yes Packing used?: none Complications: pain Discharge Plan Discharge Clinical Impression: Abscess of buttock, right Patient Disposition: Home, Self-Care Instructions: Abscess (ED), Sitz Bath (DC), Incision and Drainage (ED) Additional Instructions: 1. Tylenol 1000 mg, orally, every 6 hours as needed for pain control. Do not exceed 4000 mg within 24 hours. 2. Ibuprofen 400 mg, orally with milk or food, every 6 hours as needed for pain control. 3. Recommend soaking in approximately 5-6 inches of warm water in the bathtub twice daily. 4. Please follow-up with your primary care doctor in the next 1-2 days for re- evaluation and further outpatient management. Return to the ER for any worsening symptoms such as development of fever. Prescriptions: No Action acetaminophen [Tylenol Extra Strength] 500 mg tablet 500 mg PO Q6H PRN (Reason: fever or pain) Qty: 14 0RF lidocaine [Lidoderm] 5 % adhesive patch,medicated 1 patch topical DAILY MDD remove after 12 hours PRN (Reason: pain) Qty: 30 0RF Rx Instructions: leave on most painful area for up to 12 hrs cyclobenzaprine 5 mg tablet 5 mg PO Q8H PRN (Reason: pain (scale score 7-10)) 5 Days Qty: 14 0RF Interventions: ED Discharge Assessment Last Done: 10/20/23 20:24
[2023-10-20 15:54] LABS: MANUAL DIFF FLAG NO
[2023-10-20 16:00] LABS: Basophils Absolute Auto 0.1 X10*3/uL (0.0-0.2); Basophils Percent Auto 0.6 % (0-2); Eosinophils Absolute Auto 0.3 X10*3/uL (0.0-0.4); Eosinophils Percent Auto 3.1 % (0-4); Hematocrit 50.6 % (42.0-52.0); Hemoglobin 17.9 g/dl (14.0-18.0); Imm Gran Abs Auto 0.05 X10*3/uL (0.00-0.03); Imm Gran Pct Auto 0.5 % (0.0-0.4); Lymphocytes Absolute Auto 2.3 X10*3/uL (1.2-4.9); Lymphocytes Percent Auto 24.4 % (20-40); Mean Corpuscular HGB Conc 35.4 g/dl (31.0-36.0); Mean Corpuscular Hemoglobin 30.9 pg (27.0-33.0); Mean Corpuscular Volume 87.4 fL (80.0-98.0); Mean Platelet Volume 13.8 fL (9.4-12.4); Monocytes Absolute Auto 0.5 X10*3/uL (0.1-1.2); Monocytes Percent Auto 5.8 % (2-11); Neutrophils Absolute Auto 6.1 x10*3/uL (2.0-8.3); Neutrophils Percent Auto 65.6 % (45-73); Platelet Count 89 X10*3/uL (160-400); Red Blood Count 5.79 X10*6/uL (4.60-5.80); Red Cell Distribution Width 13.2 % (11.0-16.0); White Blood Count 9.3 X10*3/uL (4.8-10.8)
[2023-10-20 16:12] LABS: Alanine Aminotransferase 18 U/L (0-40); Albumin Level 4.5 g/dL (3.5-5.0); Alkaline Phosphatase 105 U/L (39-117); Anion Gap 12 (12-20); Aspartate Amino Transferase 15 U/L (5-37); Bilirubin Direct 0.1 mg/dL (0.0-0.5); Bilirubin Total 0.5 mg/dL (0.0-1.0); Blood Urea Nitrogen 9 mg/dL (9-16); Calcium 9.8 mg/dL (8.4-10.2); Carbon Dioxide 25 mmol/L (22-29); Chloride 107 mmol/L (96-108); Creatinine Clr Calc Pharmacy 79.9; Estimated Glomerular Filt Rate > 60; Glucose Random 332 mg/dL (60-115); Potassium 4.4 mmol/L (3.3-5.1); Sodium 140 mmol/L (135-145); Total Protein 7.8 g/dL (6.5-8.0)
[2023-10-20] MEDS: Lidocaine 4 % Cream KIT 1 APPL TOPICAL (18:36)
[2023-10-20] MEDS: oxyCODONE HCl Immed Release 5 MG TABLET PO (20:12)
[2023-10-20] MEDS: Ibuprofen 400 MG TABLET PO (20:12)
[2023-10-20] MEDS: Acetaminophen 325 MG TABLET 975 MG PO (20:13)
[2023-10-20 20:15] VITALS: BP 130/89; PULSE 100; RESP 18; TEMP 36.5; O2SAT 99
[2023-10-20 20:24] VITALS: BP 130/89; PULSE 100; RESP 18; TEMP 36.5; O2SAT 99
== END 2023-10-20 20:25 | disposition home or self-care (01) ==
PROVIDERS: Physician Assistant Medical; Emergency Provider Student in an Organized Health Care Education/Training Program
DX: L02.31 Cutaneous abscess of buttock (principal)
CPT/HCPCS: 10060; 36415; 80048; 80076; 85025; 99284